=== PATIENT | male | born 1940 | race Caucasian/White ===

== ENCOUNTER 2019-01-15 21:55 | Observation (INO) | payer OTHER, MEDICARE ==
[2019-01-15 22:06] VITALS: BMI 20.9
--- NOTE | 2019-01-15 22:45 | PDOC ---
History of Present Illness - General Chief Complaint: Chest Pain Stated Complaint: CHEST PAIN Time Seen by Provider: 01/15/19 22:44 History Source: Patient Exam Limitations: No Limitations - History of Present Illness Initial Comments: 01/15/19 22:44 Source: Patient and HPI: 78yo M with PMH DM, HTN, HLD, thyroid problem, presenting with 2 hours of chest pain. Pain is constant, non-radiating, worse with breathing, sharp in nature. Patient has no cardiac history, no cardiology, has never had a pain like this before, takes the occasional 81mg ASA, none today. Very active vitaliy, walks and exercises daily, never smoker. Denies fevers / chills / cough / n / v / c / d / CANTOR / diaphoresis / recent travel / immobilization / leg pains or swelling. All: NKDA Meds: per chart PMH: as above PSH: denies Past History - Travel Traveled outside of the country in the last 30 days: No Close contact w/someone who was outside of country & ill: No - Past Medical History Allergies/Adverse Reactions: Allergies Allergy/AdvReac Type Severity Reaction Status Date / Time No Known Allergies Allergy Verified 01/15/19 22:04 Home Medications: Ambulatory Orders Aspirin [ASA -] 81 mg PO DAILY 01/15/19 Atorvastatin Ca [Lipitor] 10 mg PO HS 01/15/19 Glipizide Xl [Glucotrol Xl -] 10 mg PO DAILY 01/15/19 Levothyroxine [Synthroid -] 75 mcg PO DAILY 01/15/19 Losartan Potassium 100 mg PO DAILY 01/15/19 Metformin HCl [Glucophage] 500 mg PO DAILY 01/15/19 Metoprolol Tartrate 25 mg PO DAILY 01/15/19 Sitagliptin Phosphate [Januvia] 50 mg PO DAILY 01/15/19 COPD: No Diabetes: Yes HTN: Yes Hypercholesterolemia: Yes - Psycho Social/Smoking Cessation Hx Smoking History: Never smoked Review of Systems - Review of Systems Able to Perform ROS?: Yes Is the patient limited Malay proficient: Yes Constitutional: No: Chills, Diaphoresis, Fever, Weakness HEENTM: No: Recent change in vision, Nose Congestion, Throat Pain Respiratory: No: Cough, Orthopnea, Shortness of Breath, Wheezing Cardiac (ROS): Yes: Symptoms Reported, See HPI, Chest Pain. No: Edema, Irregular Heart Rate, Lightheadedness, Palpitations, Syncope, Chest Tightness ABD/GI: No: Constipated, Diarrhea, Nausea, Poor Appetite, Poor Fluid Intake, Vomiting : No: Burning, Dysuria, Pain Musculoskeletal: No: Muscle Pain, Muscle Weakness Integumentary: No: Bruising, Change in Color, Pruritus, Rash Neurological: No: Headache, Numbness, Tingling, Weakness Psychiatric: No: Stressors, Change in Appetite Endocrine: No: Excessive Sweating, Flushing, Change in Weight Hematologic/Lymphatic: No: Anemia, Blood Clots, Easy Bleeding All Other Systems: Reviewed and Negative *Physical Exam - Vital Signs Last Vital Signs Temp Pulse Resp BP Pulse Ox 98 F 72 18 140/72 100 01/15/19 22:04 01/15/19 22:04 01/15/19 22:04 01/15/19 22:04 01/15/19 22:04 - Physical Exam Comments: 01/15/19 23:27 Vitals reviewed, hypertensive, otherwise AFVSS WDWN man, appears stated age, no acute distress, resting in hospital bed MMM, EOMI, NCAT, PERLL, trachea midline RRR, nl s1s2, no murmurs appreciated Clear to auscultation bilaterally with some reduction in breath sounds in left lung, no wheezes / rales / rhonchi, normal WOB, 100% on RA, chest wall mildly tender on palpation without crepitus Soft, nontender, nondistended WWP, 2+ radial and PT pulses, no clubbing / cyanosis / edema Alert and oriented, CN 2-12 grossly intact, MAEE Heart Score/ECG Review - History History: Slightly suspicious - Electrocardiogram EKG: Normal - Age Age: >/= 65 - Risk Factors Risk Factors Heart Score: Yes Hx Hypercholesterolemia, Yes Hx Hypertension, Yes Hx Diabetes Based on the list above the patient has:: >/=3 risk factors or Hx atherosclerotic disease - Troponin Troponin: </= normal limit - Score Heart Score - Total: 4 ED Treatment Course - LABORATORY CBC & Chemistry Diagram: 01/15/19 23:55 01/15/19 23:55 Medical Decision Making - Medical Decision Making 01/15/19 23:25 78yo M with PMH DM, HTN, HLD, thyroid problem, presenting with acute pleuritic chest pain. PE notable for reduced BS on left thorax. DDX: Pneumothorax, r/o ACS , PE, MSK pain. HEART Score at least 4. -CBC, CMP, CP, PT/INR -EKG, CXR, Acquisition Specialist -Chewable ASA 324 EKG: Sinus with 1st degree AV block (PA 364 ms), normal axis, no abnormal morphologies No recent comparison in chart - prior 2010 without AV block 01/16/19 00:27 -No leukocytosis -RBCs 3.55, Hgb 11.5, Hct 34.4 01/16/19 00:50 -Indeterminate troponin (0.04) -Mildly Hyper K 5.2 -MOHSEN with Cr 1.5 - ordered for 500cc NS -Normal coags Dispo: Tele Obs for r/o ACS 01/16/19 00:53 -CXR with normal silhouette, no consolidations or effusions, no pneumothorax, no acute fractures noted on my read 01/16/19 01:10 -Patient admitted to Tel/Obs under Dr. Love, sign out given Discharge - Discharge Information Problems reviewed: Yes Clinical Impression/Diagnosis: MOHSEN (acute kidney injury) Chest pain Qualifiers: Chest pain type: chest pain on breathing Qualified Code(s): R07.1 - Chest pain on breathing Condition: Improved - Admission Yes - Follow up/Referral Referrals: Ayad Love MD [Primary Care Provider] - - Patient Discharge Instructions - Post Discharge Activity
[2019-01-15] MEDS ORDERED: ASPIRIN 81 MG CHEWABLE TABLETS PO ONE (23:11)
[2019-01-15] MEDS ORDERED: ASPIRIN 81 MG CHEWABLE TABLETS ONE (23:35)
[2019-01-16 00:03] LABS: BASO % 0.7 % (0-2.0); EOS % 2.6 % (0-4.5); HEMATOCRIT 34.4 % (35.4-49); HEMOGLOBIN 11.2 GM/dL (11.7-16.9); LYMPH % 27.9 % (8-40); MCH 31.5 pg (25.7-33.7); MCHC 32.6 g/dl (32.0-35.9); MEAN CELL VOLUME 96.7 fl (80-96); MEAN PLT VOLUME 11.6 fl (7.5-11.1); MONO % 9.2 % (3.8-10.2); NEUT % 59.6 % (42.8-82.8); PLATELET COUNT 148 K/MM3 (134-434); RBC 3.55 M/mm3 (4.00-5.60); RDW 13.8 % (11.9-15.9); WHITE BLOOD COUNT 8.2 K/mm3 (4.0-10.0)
[2019-01-16 00:32] LABS: ALBUMIN 3.9 g/dl (3.4-5.0); BILIRUBIN,TOTAL 0.5 mg/dL (0.2-1); BLOOD UREA NITROGEN 35.1 mg/dL (7-18); CALCIUM 9.4 mg/dL (8.5-10.1); CREATININE 1.5 mg/dL (0.55-1.3); INR 0.93 (0.83-1.09); POTASSIUM 5.2 mmol/L (3.5-5.1); TOT PROT 6.6 g/dl (6.4-8.2)
[2019-01-16] MEDS ORDERED: SODIUM CHLORIDE 0.9% 500 ML INFUS.BAG IV ONE (00:52)
--- NOTE | 2019-01-16 01:10 | PDOC ---
Documentation entered by Beryl Borges SCRIBE, acting as scribe for Adalgisa Fleming MD. Adalgisa Fleming MD: This documentation has been prepared by the Jony ellis Brenda, SCRIBE, under my direction and personally reviewed by me in its entirety. I confirm that the documentation accurately reflects all work, treatment, procedures, and medical decision making performed by me. Attending Attestation - Resident Resident Name: Esdras Kaur - ED Attending Attestation I have performed the following: I have examined & evaluated the patient, The case was reviewed & discussed with the resident, I agree w/resident's findings & plan, Exceptions are as noted - HPI HPI: 01/16/19 00:22 78-year-old male presents because of left-sided pleuritic chest pain that started this evening at 8 PM. Was nonradiating and worsened with deep breaths. He did not have diaphoresis he was not hypoxic or tachypneic. - Physicial Exam PE: 01/16/19 00:[address] Esdras Kaur's physical exam. - Medical Decision Making 01/16/19 01:05 78 yo male with chest pain that started tonight, no prior episodes PMH NIDDM ,HTN, ekg NSR @ 80 bpm, QTc 403 ms,first degree AV block first troponin is 0.[address] Ayad Ricardo pt needs to have 3 troponins done and be admitted to OBS telemetry and Dr Ricardo agreed to this plan
[2019-01-16] MEDS ORDERED: ASPIRIN COATED 81 MG TABLET.EC ONE (08:59)
[2019-01-16] MEDS ORDERED: METOPROLOL TARTRATE 25 MG TABLET (FP) ONE (08:59)
[2019-01-16] MEDS: ASPIRIN COATED 81 MG TABLET.EC PO SCH (09:13)
[2019-01-16] MEDS: metoPROLOL SUCCINATE 25 MG TAB.SR.24H (FP) PO SCH (09:13)
--- NOTE | 2019-01-16 10:28 | CON.CARD ---
Consult Consult Specialty:: cardiology Reason for Consultation:: chest pain; CAD risks - History of Present Illness Chief Complaint: Pt A&Ox3; the central chest discomfort ("heavy"), partially reproduced by palpation of the left parasternal chest wall, was moderately intense yesterday; it is mild today. History of Present Illness: 78-year-old male (scott Freire), with hx CVA, HTN, hyperlioidemia, DM, who presents because of left-sided pleuritic chest pain that started this evening at 8 PM. Was nonradiating and worsened with deep breaths. He did not have diaphoresis he was not hypoxic or tachypneic. - History Source History Provided By: Patient, Medical Record (and discussed with Dr. Ayad Love) Limitations to Obtaining History: No Limitations - Smoking History Smoking history: Never smoked Home Medications - Allergies Allergies/Adverse Reactions: Allergies Allergy/AdvReac Type Severity Reaction Status Date / Time No Known Allergies Allergy Verified 01/15/19 22:04 - Home Medications Home Medications: Ambulatory Orders Aspirin [ASA -] 81 mg PO DAILY 01/15/19 Atorvastatin Ca [Lipitor] 10 mg PO HS 01/15/19 Glipizide Xl [Glucotrol Xl -] 10 mg PO DAILY 01/15/19 Levothyroxine [Synthroid -] 75 mcg PO DAILY 01/15/19 Losartan Potassium 100 mg PO DAILY 01/15/19 Metformin HCl [Glucophage] 500 mg PO DAILY 01/15/19 Metoprolol Tartrate 25 mg PO DAILY 01/15/19 Sitagliptin Phosphate [Januvia] 50 mg PO DAILY 01/15/19 Vital Signs: Vital Signs Temperature 97.7 F 01/16/19 07:20 Pulse Rate 54 L 01/16/19 07:20 Respiratory Rate 20 01/16/19 07:20 Blood Pressure 122/66 01/16/19 07:20 O2 Sat by Pulse Oximetry (%) 99 01/16/19 07:20 - Other Data Labs, Other Data: CBC, BMP 01/15/19 23:55 01/15/19 23:55 INR, PTT INR 0.93 (0.83-1.09) 01/15/19 23:55 Troponin, BNP 01/15/19 01/16/19 23:55 08:40 Troponin I 0.04 0.05 Troponin, BNP 01/15/19 01/16/19 23:55 08:40 Troponin I 0.04 0.05 Problem List - Problems (1) Diabetes Code(s): E11.9 - TYPE 2 DIABETES MELLITUS WITHOUT COMPLICATIONS Qualifiers: Diabetes mellitus type: type 2 (2) CVA (cerebral vascular accident) Code(s): I63.9 - CEREBRAL INFARCTION, UNSPECIFIED (3) HTN (hypertension) Code(s): I10 - ESSENTIAL (PRIMARY) HYPERTENSION Qualifiers: Hypertension type: unspecified Qualified Code(s): I10 - Essential (primary ) hypertension (4) Hyperlipidemia Code(s): E78.5 - HYPERLIPIDEMIA, UNSPECIFIED Qualifiers: Hyperlipidemia type: unspecified Qualified Code(s): E78.5 - Hyperlipidemia , unspecified (5) Chest pain Assessment/Plan: EKG: NSR; f/u serially. TNI 0.04-->0.05. Plan: ASA 325 mg x 1, then 81 mg daily. Statin; f/u lipid profile. Serial TNI; if no significant further rise, will plan for stress MIBI in am. Code(s): R07.9 - CHEST PAIN, UNSPECIFIED Qualifiers: Chest pain type: chest pain on breathing Qualified Code(s): R07.1 - Chest pain on breathing; R07.81 - Pleurodynia
[2019-01-16] MEDS ORDERED: ACETAMINOPHEN 325 MG TABLET (FP) PO ONE (11:00)
[2019-01-16] MEDS ORDERED: ACETAMINOPHEN 325 MG TABLET (FP) ONE (11:02)
--- NOTE | 2019-01-16 12:09 | EKG ---
Test Reason : Blood Pressure : / mmHG Vent. Rate : 080 BPM Atrial Rate : 080 BPM P-R Int : 364 ms QRS Dur : 098 ms QT Int : 350 ms P-R-T Axes : 018 -27 052 degrees QTc Int : 403 ms SINUS RHYTHM WITH 1ST DEGREE A-V BLOCK SEPTAL INFARCT , AGE UNDETERMINED ABNORMAL ECG WHEN COMPARED WITH ECG OF 23-MAR-2002 10:12, SEPTAL INFARCT IS NOW PRESENT T WAVE INVERSION NO LONGER EVIDENT IN INFERIOR LEADS Confirmed by Lake Mishra MD ([id number]) on 01/16/2019 12:08:52 PM Referred By: Confirmed By:Lake Mishra MD
--- NOTE | 2019-01-16 14:22 | ECHO ---
Name: SHALINI ISRRAEL Exam:Adult Echocardiogram Study Date: 01/16/2019 01:31 PM Age: 78 yrs Reason For Study: Chest pain Height: 67 in Weight: 134 lb BSA: 1.7 m2 MMode/2D Measurements & Calculations IVSd: 1.1 cm LA dimension: 4.1 cm LVIDd: 4.0 cm ACS: 2.0 cm LVIDs: 2.9 cm LVPWd: 1.4 cm EDV(Teich): 68.6 ml LVOT diam: 1.9 cm ESV(Teich): 33.2 ml RV S Layton: 13.0 cm/sec Doppler Measurements & Calculations MV E max layton: 103.3 cm/sec MR max layton: 539.4 cm/sec MV A max layton: 90.2 cm/sec MR max P.4 mmHg MV E/A: 1.1 MV dec time: 0.10 sec TR max layton: 265.6 cm/sec PI end-d layton: 183.2 cm/sec TR max P.5 mmHg RVSP(TR): 38.5 mmHg Med Peak E' Layton: 7.0 cm/sec RAP systole: 10.0 mmHg Med E/e': 14.7 Lat Peak E' Layton: 9.1 cm/sec Lat E/e': 11.4 Procedure A two-dimensional transthoracic echocardiogram with color flow and Doppler was performed. Left Ventricle The left ventricle is normal in size. There is mild concentric left ventricular hypertrophy. Left elvis tricular systolic function is normal. Ejection Fraction = 55%. Right Ventricle The right ventricle is normal in size and function. Atria The left atrium is mildly dilated. The right atrium is mildly dilated. Mitral Valve The mitral valve is grossly normal. There is moderate mitral regurgitation. Tricuspid Valve The tricuspid valve is not well visualized, but is grossly normal. There is mild tricuspid regurgitat ion. Right ventricular systolic pressure is elevated at 44 mmhg. Assuming the RA pressure is 10 mmHg. Aortic Valve The aortic valve is trileaflet. There is mild aortic sclerosis.;. No hemodynamically significant valv ular aortic stenosis. Mild aortic regurgitation. Pulmonic Valve The pulmonic valve is not well visualized. Great Vessels The aortic root is normal size. Interpretation Summary A two-dimensional transthoracic echocardiogram with color flow and Doppler was performed. The left ventricle is normal in size. There is mild concentric left ventricular hypertrophy. Left ventricular systolic function is normal. The left atrium is mildly dilated. There is moderate mitral regurgitation. There is mild tricuspid regurgitation. No hemodynamically significant valvular aortic stenosis. Mild aortic regurgitation. Right ventricular systolic pressure is elevated at 44 mmhg. Assuming the RA pressure is 10 mmHg MD Giovani Mora 01/16/2019 02:21 PM
--- NOTE | 2019-01-16 18:20 | HP ---
Admitting History and Physical - Primary Care Physician PCP: Ayad Love - Admission Chief Complaint: left sided chest pain History of Present Illness: 78-year-old male w/ Hx of Htn; DM presents because of abrupt onset of resting left-sided pleuritic chest pain. He states that it began suddenly last PM when he was sitting watching TV. he noted a fixed pain (which he still has), non radiating, w/o dizziness, sweats, n-v, palpitations. He had not had this before. He denies any cough; SOB, PND. He does do light exercises which he has always done. He does not report any exertional chest pains. He does not feel ill in any other way. History Source: Patient Limitations to Obtaining History: No Limitations - Past Medical History Cardiovascular: Yes: HTN, Hyperlipdemia Endocrine: Yes: Diabetes Mellitus, Hypothyroidism - Past Surgical History Additional Past Surgical History: Gastric surgery as youth for ulcer dz Orthopedic surgery for FX - Smoking History Smoking history: Never smoked - Alcohol/Substance Use Hx Alcohol Use: No History of Substance Use: reports: None - Social History Usual Living Arrangement: Yes: With Spouse Do you think of yourself as: Straight/Heterosexual ADL: Independent Occupation: retired from construction History of Recent Travel: No Home Medications - Allergies Allergies/Adverse Reactions: Allergies Allergy/AdvReac Type Severity Reaction Status Date / Time No Known Allergies Allergy Verified 01/15/19 22:04 - Home Medications Home Medications: Ambulatory Orders Aspirin [ASA -] 81 mg PO DAILY 01/15/19 Atorvastatin Ca [Lipitor] 10 mg PO HS 01/15/19 Glipizide Xl [Glucotrol Xl -] 10 mg PO DAILY 01/15/19 Levothyroxine [Synthroid -] 75 mcg PO DAILY 01/15/19 Losartan Potassium 100 mg PO DAILY 01/15/19 Metformin HCl [Glucophage] 500 mg PO DAILY 01/15/19 Metoprolol Tartrate 25 mg PO DAILY 01/15/19 Sitagliptin Phosphate [Januvia] 50 mg PO DAILY 01/15/19 Family Medical History Family History: Unremarkable Review of Systems - Review of Systems Constitutional: reports: No Symptoms Eyes: reports: No Symptoms HENT: reports: No Symptoms Neck: reports: No Symptoms Cardiovascular: reports: Chest Pain Respiratory: reports: No Symptoms Gastrointestinal: reports: No Symptoms Genitourinary: reports: Frequency (HS) Breasts: reports: No Symptoms Reported Musculoskeletal: reports: No Symptoms Integumentary: reports: No Symptoms Neurological: reports: No Symptoms Endocrine: reports: No Symptoms Hematology/Lymphatic: reports: No Symptoms Psychiatric: reports: No Symptoms Physical Examination Vital Signs: Vital Signs Temperature 98.6 F 01/16/19 11:37 Pulse Rate 62 01/16/19 11:37 Respiratory Rate 12 01/16/19 11:37 Blood Pressure 120/65 01/16/19 11:37 O2 Sat by Pulse Oximetry (%) 97 01/16/19 11:37 Constitutional: Yes: Well Nourished, No Distress, Calm Eyes: Yes: Conjunctiva Clear, EOM Intact HENT: Yes: WNL Neck: Yes: WNL Cardiovascular: Yes: Regular Rate and Rhythm Respiratory: Yes: Regular Gastrointestinal: Yes: Normal Bowel Sounds, Soft, Other (old surg incision) ...Rectal Exam: Yes: Deferred Renal/: Yes: WNL Musculoskeletal: Yes: WNL Extremities: Yes: WNL Edema: No Peripheral Pulses: Left Doralis Pedis: 2+, Right Dorsalis Pedis: 2+ Integumentary: Yes: WNL Neurological: Yes: WNL ...Motor Strength: WNL Psychiatric: Yes: WNL Labs: CBC, BMP 01/15/19 23:55 01/15/19 23:55 Laboratory Tests 01/15/19 01/15/19 01/15/19 23:55 23:55 23:55 WBC 8.2 RBC 3.55 L Hgb 11.2 L Hct 34.4 L MCV 96.7 H MCH 31.5 MCHC 32.6 RDW 13.8 Plt Count 148 D MPV 11.6 H D Absolute Neuts (auto) 4.9 Neutrophils % 59.6 Lymphocytes % 27.9 Monocytes % 9.2 Eosinophils % 2.6 Basophils % 0.7 Nucleated RBC % 0 PT with INR INR Sodium 139 Potassium 5.2 H Chloride 111 H Carbon Dioxide 22 Anion Gap 6 L BUN 35.1 H Creatinine 1.5 H Est GFR (CKD-EPI)AfAm 50.59 Est GFR (CKD-EPI)NonAf 43.65 POC Glucometer Random Glucose 222 H Calcium 9.4 Total Bilirubin 0.5 AST 14 L ALT 20 Alkaline Phosphatase 64 Creatine Kinase 109 Troponin I 0.04 Total Protein 6.6 Albumin 3.9 Triglycerides Cholesterol Total LDL Cholesterol HDL Cholesterol Vitamin B12 TSH 01/15/19 01/16/19 01/16/19 23:55 08:40 09:31 WBC RBC Hgb Hct MCV MCH MCHC RDW Plt Count MPV Absolute Neuts (auto) Neutrophils % Lymphocytes % Monocytes % Eosinophils % Basophils % Nucleated RBC % PT with INR 11.00 INR 0.93 Sodium Potassium Chloride Carbon Dioxide Anion Gap BUN Creatinine Est GFR (CKD-EPI)AfAm Est GFR (CKD-EPI)NonAf POC Glucometer 150 Random Glucose Calcium Total Bilirubin AST ALT Alkaline Phosphatase Creatine Kinase 80 Troponin I 0.05 Total Protein Albumin Triglycerides 56 Cholesterol 124 Total LDL Cholesterol 57 HDL Cholesterol 57 Vitamin B12 515 TSH 0.42 Imaging - Results Chest X-ray: Report Reviewed EKG: Report Reviewed Other: Report Reviewed (echo--> NL Ej Fx; but multiple valvular dz) Problem List - Problems (1) Chest pain Assessment/Plan: Left sided fixed; with only slight change in intensity. Non radiating, but does augment with deep breathing. Likely causes may be due to a pleuritis; doubt pericarditis; angina a possibility. Doubt PE in setting of NL oxygenation. PLAn : as per cardio; check Cardiac enz x 3 Code(s): R07.9 - CHEST PAIN, UNSPECIFIED Qualifiers: Chest pain type: chest pain on breathing Qualified Code(s): R07.1 - Chest pain on breathing; R07.81 - Pleurodynia (2) Diabetes Assessment/Plan: Non insulin dep; will check A1c; do BGMs Code(s): E11.9 - TYPE 2 DIABETES MELLITUS WITHOUT COMPLICATIONS Qualifiers: Diabetes mellitus type: type 2 (3) Hyperlipidemia Assessment/Plan: on statin, levels in range Code(s): E78.5 - HYPERLIPIDEMIA, UNSPECIFIED Qualifiers: Hyperlipidemia type: unspecified Qualified Code(s): E78.5 - Hyperlipidemia , unspecified (4) History of CVA (cerebrovascular accident) Assessment/Plan: many yrs ago; no residual deficits Code(s): Z86.73 - PRSNL HX OF TIA (TIA), AND CEREB INFRC W/O RESID DEFICITS (5) Anemia Assessment/Plan: unknown cause; mild. NC-NC; onset unknown by bid writer Code(s): D64.9 - ANEMIA, UNSPECIFIED Qualifiers: Anemia type: unspecified type Qualified Code(s): D64.9 - Anemia, unspecified (6) Hypertension with impaired renal function Assessment/Plan: BP in range at this time Code(s): I12.9 - HYPERTENSIVE CHRONIC KIDNEY DISEASE W STG 1-4/UNSP CHR KDNY (7) Abnormal EKG Assessment/Plan: as per reader; to suggest septal infarct; not described by echo report. Code(s): R94.31 - ABNORMAL ELECTROCARDIOGRAM [ECG] [EKG] Assessment/Plan 78 YO Diabetic with new onset of Lt sided CP. Mgmt as above. ~~~~~~~~~~~~~~~~~~~~~~~~ Dr Mistry
[2019-01-17 06:57] LABS: BLOOD UREA NITROGEN 21.7 mg/dL (7-18); CALCIUM 9.2 mg/dL (8.5-10.1); CREATININE 1.2 mg/dL (0.55-1.3); HEMATOCRIT 32.6 % (35.4-49); HEMOGLOBIN 10.9 GM/dL (11.7-16.9); MCH 31.8 pg (25.7-33.7); MCHC 33.3 g/dl (32.0-35.9); MEAN CELL VOLUME 95.5 fl (80-96); PLATELET COUNT 146 K/MM3 (134-434); POTASSIUM 4.5 mmol/L (3.5-5.1); RBC 3.41 M/mm3 (4.00-5.60); RDW 13.2 % (11.9-15.9); WHITE BLOOD COUNT 5.8 K/mm3 (4.0-10.0)
[2019-01-17] MEDS: ASPIRIN COATED 81 MG TABLET.EC PO SCH (09:41)
--- NOTE | 2019-01-17 09:49 | PN ---
Progress Note, Physician History of Present Illness: 78-year-old male (scott Freire), with hx CVA, HTN, hyperlioidemia, DM, who presents because of left-sided pleuritic chest pain that started this evening at 8 PM. Was nonradiating and worsened with deep breaths. He did not have diaphoresis he was not hypoxic or tachypneic. - Current Medication List Current Medications: Active Medications Aspirin (Ecotrin -) 81 mg PO DAILY [facility] Last Admin: 01/17/19 09:41 Dose: 81 mg Metformin HCl (Glucophage Xr -) 750 mg PO BIDAC [facility] Last Admin: 01/16/19 18:30 Dose: 750 mg Metoprolol Succinate (Toprol Xl -) 25 mg PO DAILY [facility] Last Admin: 01/16/19 09:13 Dose: 25 mg - Objective Vital Signs: Vital Signs Temperature 98.0 F 01/17/19 07:43 Pulse Rate 52 L 01/17/19 07:43 Respiratory Rate 18 01/17/19 07:43 Blood Pressure 139/59 L 01/17/19 07:43 O2 Sat by Pulse Oximetry (%) 99 01/16/19 23:20 Eyes: Yes: WNL, Conjunctiva Clear, EOM Intact HENT: Yes: WNL, Atraumatic, Normocephalic Neck: Yes: WNL, Supple, Trachea Midline Cardiovascular: Yes: WNL, Regular Rate and Rhythm Respiratory: Yes: WNL, Regular, CTA Bilaterally Gastrointestinal: Yes: WNL, Normal Bowel Sounds Genitourinary: Yes: WNL Musculoskeletal: Yes: WNL Extremities: Yes: WNL Edema: No Integumentary: Yes: WNL Neurological: Yes: WNL, Alert, Oriented ...Motor Strength: WNL Psychiatric: Yes: WNL Labs: CBC, BMP 01/17/19 05:35 01/17/19 05:35 INR, PTT INR 0.93 (0.83-1.09) 01/15/19 23:55 Assessment/Plan Problem List - Problems (1) Diabetes Code(s): E11.9 - TYPE 2 DIABETES MELLITUS WITHOUT COMPLICATIONS Qualifiers: Diabetes mellitus type: type 2 (2) CVA (cerebral vascular accident) Code(s): I63.9 - CEREBRAL INFARCTION, UNSPECIFIED (3) HTN (hypertension) Code(s): I10 - ESSENTIAL (PRIMARY) HYPERTENSION Qualifiers: Hypertension type: unspecified Qualified Code(s): I10 - Essential (primary ) hypertension (4) Hyperlipidemia Code(s): E78.5 - HYPERLIPIDEMIA, UNSPECIFIED Qualifiers: Hyperlipidemia type: unspecified Qualified Code(s): E78.5 - Hyperlipidemia , unspecified (5) Chest pain Assessment/Plan: EKG: NSR; f/u serially. TNI 0.04-->0.05. Plan: ASA 325 mg x 1, then 81 mg daily. Statin; f/u lipid profile. stress MIBI neg for ischemia will d/c telemetry Code(s): R07.9 - CHEST PAIN, UNSPECIFIED Qualifiers: Chest pain type: chest pain on breathing Qualified Code(s): R07.1 - Chest pain on breathing; R07.81 - Pleurodynia
--- NOTE | 2019-01-17 09:55 | EKG ---
Test Reason : Blood Pressure : / mmHG Vent. Rate : 052 BPM Atrial Rate : 052 BPM P-R Int : 364 ms QRS Dur : 096 ms QT Int : 440 ms P-R-T Axes : 046 -35 007 degrees QTc Int : 409 ms SINUS BRADYCARDIA WITH 1ST DEGREE A-V BLOCK LEFT AXIS DEVIATION INCOMPLETE RIGHT BUNDLE BRANCH BLOCK ABNORMAL ECG WHEN COMPARED WITH ECG OF 15-JAN-2019 21:49, VENT. RATE HAS DECREASED BY 28 BPM CRITERIA FOR SEPTAL INFARCT ARE NO LONGER PRESENT Confirmed by CJ LOTT, ELISABETH ([id number]) on 01/17/2019 9:55:14 AM Referred By: Confirmed By:ELISABETH CORONA MD
[2019-01-17] MEDS: metoPROLOL SUCCINATE 25 MG TAB.SR.24H (FP) PO SCH (12:43)
[2019-01-17 16:53] VITALS: BP 133/74; PULSE 64; TEMP 98.8
--- NOTE | 2019-01-17 17:18 | DS ---
Physical Examination Vital Signs: Vital Signs Temperature 98.8 F 01/17/19 16:52 Pulse Rate 64 01/17/19 16:52 Respiratory Rate 16 01/17/19 16:52 Blood Pressure 133/74 01/17/19 16:52 O2 Sat by Pulse Oximetry (%) 99 01/17/19 09:00 Constitutional: Yes: Well Nourished, No Distress, Calm Eyes: Yes: Conjunctiva Clear, EOM Intact HENT: Yes: Normocephalic Neck: Yes: Supple Cardiovascular: Yes: Regular Rate and Rhythm Respiratory: Yes: CTA Bilaterally, Other (Lt pect tenderness to touch) Gastrointestinal: Yes: Normal Bowel Sounds Neurological: Yes: WNL ...Motor Strength: WNL Psychiatric: Yes: WNL Labs: CBC, BMP 01/17/19 05:35 01/17/19 05:35 Laboratory Tests 01/15/19 01/15/19 01/15/19 23:55 23:55 23:55 WBC 8.2 RBC 3.55 L Hgb 11.2 L Hct 34.4 L MCV 96.7 H MCH 31.5 MCHC 32.6 RDW 13.8 Plt Count 148 D MPV 11.6 H D Absolute Neuts (auto) 4.9 Neutrophils % 59.6 Lymphocytes % 27.9 Monocytes % 9.2 Eosinophils % 2.6 Basophils % 0.7 Nucleated RBC % 0 PT with INR INR Sodium 139 Potassium 5.2 H Chloride 111 H Carbon Dioxide 22 Anion Gap 6 L BUN 35.1 H Creatinine 1.5 H Est GFR (CKD-EPI)AfAm 50.59 Est GFR (CKD-EPI)NonAf 43.65 POC Glucometer Random Glucose 222 H Hemoglobin A1c % Calcium 9.4 Total Bilirubin 0.5 AST 14 L ALT 20 Alkaline Phosphatase 64 Creatine Kinase 109 Troponin I 0.04 Total Protein 6.6 Albumin 3.9 Triglycerides Cholesterol Total LDL Cholesterol HDL Cholesterol Vitamin B12 TSH 01/15/19 01/16/19 01/16/19 23:55 08:40 09:31 WBC RBC Hgb Hct MCV MCH MCHC RDW Plt Count MPV Absolute Neuts (auto) Neutrophils % Lymphocytes % Monocytes % Eosinophils % Basophils % Nucleated RBC % PT with INR 11.00 INR 0.93 Sodium Potassium Chloride Carbon Dioxide Anion Gap BUN Creatinine Est GFR (CKD-EPI)AfAm Est GFR (CKD-EPI)NonAf POC Glucometer 150 Random Glucose Hemoglobin A1c % Calcium Total Bilirubin AST ALT Alkaline Phosphatase Creatine Kinase 80 Troponin I 0.05 Total Protein Albumin Triglycerides 56 Cholesterol 124 Total LDL Cholesterol 57 HDL Cholesterol 57 Vitamin B12 515 TSH 0.42 01/16/19 01/17/19 01/17/19 21:45 05:26 05:35 WBC RBC Hgb Hct MCV MCH MCHC RDW Plt Count MPV Absolute Neuts (auto) Neutrophils % Lymphocytes % Monocytes % Eosinophils % Basophils % Nucleated RBC % PT with INR INR Sodium Potassium Chloride Carbon Dioxide Anion Gap BUN Creatinine Est GFR (CKD-EPI)AfAm Est GFR (CKD-EPI)NonAf POC Glucometer 205 Random Glucose Hemoglobin A1c % < 3.5 L Calcium Total Bilirubin AST ALT Alkaline Phosphatase Creatine Kinase Troponin I 0.05 Total Protein Albumin Triglycerides Cholesterol Total LDL Cholesterol HDL Cholesterol Vitamin B12 TSH 01/17/19 01/17/19 05:35 05:35 WBC 5.8 RBC 3.41 L Hgb 10.9 L Hct 32.6 L MCV 95.5 MCH 31.8 MCHC 33.3 RDW 13.2 Plt Count 146 MPV 11.0 Absolute Neuts (auto) Neutrophils % Lymphocytes % Monocytes % Eosinophils % Basophils % Nucleated RBC % PT with INR INR Sodium 143 Potassium 4.5 Chloride 111 H Carbon Dioxide 25 Anion Gap 6 L BUN 21.7 H Creatinine 1.2 Est GFR (CKD-EPI)AfAm 66.26 Est GFR (CKD-EPI)NonAf 57.17 POC Glucometer Random Glucose 217 H Hemoglobin A1c % Calcium 9.2 Total Bilirubin AST ALT Alkaline Phosphatase Creatine Kinase 70 Troponin I 0.05 Total Protein Albumin Triglycerides Cholesterol Total LDL Cholesterol HDL Cholesterol Vitamin B12 TSH Discharge Summary Problems reviewed: Yes Reason For Visit: Chest pain Current Active Problems Abnormal EKG Anemia (Acute) Diabetes (Acute) History of CVA (cerebrovascular accident) (Acute) Hyperlipidemia (Acute) Hypertension with impaired renal function (Acute) 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 His vitals were stable but his CP was persisten no worse either sitting or on exertion. He did admit to doing light weight lifting [employer] (which he always does). The CP was steady and non radiating. All his Troponins were negative. His EKG did show the presence of a "septal infarct". The echo showed NL ej FX and some valvular abnormalities. he under went stress test which did not evoke any acute ischemic findings. It did reveal a possible old IA. Today he still c/o Lt sided CP but exacerbated by touch to suggest a myofascial source. Health Concerns: BP & BS control Plan of Treatment: resume all meds Goals: avoid over exertion Condition: Improved - Instructions Diet, Activity, Other Instructions: Low starch; low salt Check BP and blood sugars Referrals: Ayad Love MD [Primary Care Provider] - Disposition: HOME - Home Medications Comprehensive Discharge Medication List: Ambulatory Orders Aspirin [ASA -] 81 mg PO DAILY 01/15/19 Atorvastatin Ca [Lipitor] 10 mg PO HS 01/15/19 Glipizide Xl [Glucotrol Xl -] 10 mg PO DAILY 01/15/19 Levothyroxine [Synthroid -] 75 mcg PO DAILY 01/15/19 Losartan Potassium 100 mg PO DAILY 01/15/19 Metformin HCl [Glucophage] 500 mg PO DAILY 01/15/19 Metoprolol Tartrate 25 mg PO DAILY 01/15/19 Sitagliptin Phosphate [Januvia] 50 mg PO DAILY 01/15/19
== END 2019-01-17 18:11 | disposition home or self-care (01) ==
LOC: JER 21:55 → JERBED 01-16 00:54 → J4S 01-16 20:53
PROVIDERS: ADMIT Internal Medicine Hematology & Oncology; ATTEND Internal Medicine Hematology & Oncology
PROC: 3E0337Z Introduction of Electrolytic and Water Balance Substance into Peripheral Vein, Percutaneous Approach (ICD-10-PCS; principal; 2019-01-16)
DX: R07.1 Chest pain on breathing (principal); I10 Essential (primary) hypertension; E78.5 Hyperlipidemia, unspecified; E11.9 Type 2 diabetes mellitus without complications; I44.0 Atrioventricular block, first degree; D64.9 Anemia, unspecified; I12.9 Hypertensive chronic kidney disease with stage 1 through stage 4 chronic kidney disease, or unspecified chronic kidney disease; R94.31 Abnormal electrocardiogram [ECG] [EKG]; I25.2 Old myocardial infarction; N17.9 Acute kidney failure, unspecified; Z79.82 Long term (current) use of aspirin; Z79.84 Long term (current) use of oral hypoglycemic drugs; Z86.73 Personal history of transient ischemic attack (TIA), and cerebral infarction without residual deficits
CPT/HCPCS: 36415; 71045-TC-FY; 78452-TC; 80048; 80053; 80061; 82550; 82607; 82962; 83036; 83721; 84443; 84484; 85025; 85027; 85610; 93005; 93010; 93017; 93306-TC; 99285-25; A9502; G0378

== ENCOUNTER 2019-11-23 08:23 | Inpatient (IN) | payer OTHER, MEDICARE ==
--- NOTE | 2019-11-23 08:49 | PDOC ---
History of Present Illness - General Chief Complaint: Pain Stated Complaint: ABDOMINAL PAIN Time Seen by Provider: 11/23/19 08:45 History Source: Patient Exam Limitations: No Limitations - History of Present Illness Initial Comments: 11/23/19 08:49 79yM w PMHx IDDM, HTN, HLD, hypothyroidism, GI ulcer s/p resection 60 years ago, R inguinal hernia repair presenting w sudden onset intermittent moderate RLQ pain and nausea which woke him up from sleep at 2am this morning. Didn't take any meds for pain. Daily BM. Denies fever, vomiting, chest pain, SOB, dysuria. Dr Ricardo PCP called, added that pt has strong fam hx of colon cancer, had large polyp removed 10yrs ago and several smaller polyps removed recently. Admit to him if being admitted Past History - Medical History Allergies/Adverse Reactions: Allergies Allergy/AdvReac Type Severity Reaction Status Date / Time No Known Allergies Allergy Verified 11/23/19 08:30 Home Medications: Ambulatory Orders Aspirin [ASA -] 81 mg PO DAILY 01/15/19 Atorvastatin Ca [Lipitor] 10 mg PO HS 01/15/19 Glipizide Xl [Glucotrol Xl -] 5 mg PO DAILY 01/15/19 Levothyroxine [Synthroid -] 75 mcg PO DAILY 01/15/19 Metformin HCl [Glucophage] 500 mg PO DAILY 01/15/19 Metoprolol Tartrate 25 mg PO DAILY 01/15/19 Sitagliptin Phosphate [Januvia] 50 mg PO DAILY 01/15/19 Insulin Lispro [Humalog] unit SQ AC 11/23/19 Irbesartan [Avapro] 150 mg PO DAILY 11/23/19 COPD: No Diabetes: Yes HTN: Yes Hypercholesterolemia: Yes Thyroid Disease: Yes (hypothyroid) - Surgical History Abdominal Surgery: Yes Orthopedic Surgery: Yes - Psycho-Social/Smoking History Smoking History: Never smoked Have you smoked in the past 12 months: No If you are a former smoker, when did you quit?: 55 years ago Information on smoking cessation initiated: No - Substance Abuse Hx (Audit-C & DAST Scrn) How often the patient has a drink containing alcohol: Never Score: In Men: 4 or > Positive; In Women: 3 or > Positive: 0 Screen Result (Pos requires Nsg. Audit-10AR): Negative Review of Systems - Review of Systems Constitutional: No: Chills, Fever HEENTM: No: Eye Pain, Ear Discharge Respiratory: No: Cough, Shortness of Breath Cardiac (ROS): No: Chest Pain, Lightheadedness ABD/GI: Yes: Nausea. No: Abdominal Distended, Constipated, Diarrhea, Vomiting : No: Burning, Dysuria Musculoskeletal: No: Back Pain, Joint Pain Integumentary: No: Bruising, Dryness Neurological: No: Headache, Seizure Psychiatric: No: Anxiety, Depression Endocrine: No: Intolerance to Cold, Intolerance to Heat Hematologic/Lymphatic: No: Anemia, Blood Clots *Physical Exam - Vital Signs Last Vital Signs Temp Pulse Resp BP Pulse Ox 98.3 F 55 L 17 158/71 100 11/23/19 08:30 11/23/19 08:30 11/23/19 08:30 11/23/19 08:30 11/23/19 08:30 - Physical Exam General Appearance: Yes: Nourished, Appropriately Dressed, Mild Distress HEENT: positive: EOMI, SOFYA, Normal Voice, Hearing Grossly Normal. negative: Scleral Icterus (R), Scleral Icterus (L) Respiratory/Chest: positive: Lungs Clear, Normal Breath Sounds. negative: Chest Tender, Respiratory Distress Cardiovascular: positive: Regular Rhythm, S1, S2, Bradycardia. negative: Murmur Gastrointestinal/Abdominal: positive: Normal Bowel Sounds, Tender (mild RLQ), Fl at, Soft, Other (midline epigastric surgical scar, R inguinal region no tenderness/hernia palpable). negative: Organomegaly Male Genitalia: positive: normal genitalia Musculoskeletal: positive: CVA Tenderness (R). negative: CVA Tenderness (L) Extremity: negative: Pedal Edema Integumentary: positive: Normal Color, Warm Neurologic: positive: Fully Oriented, Alert, Normal Mood/Affect, Normal Response, Responsive ED Treatment Course - LABORATORY CBC & Chemistry Diagram: 11/23/19 09:15 11/23/19 09:15 Medical Decision Making - Medical Decision Making 11/23/19 09:06 CT A/P Cr 1.4, tbili 1.1 --- 79yM w PMHx IDDM, HTN, HLD, hypothyroidism, GI ulcer s/p resection 60 years ago, R inguinal hernia repair presenting w sudden onset intermittent moderate RLQ pain and nausea which woke him up from sleep at 2am this morning. MSK vs diverticulitis. Low concern for appendicitis vs SBO (not distended) vs incarcerated hernia (pain above hernia) vs UTI (clean) vs kidney stone (no RBC) Cr 1.[address] showed overdistended gallbladder w hyperdense material consistent w small stones, milk of ca, sludge, significant stranding along inferior posterior margin where it meets appendiceal tip, normal size appendix, significant surrounding edema, free fluid in RLQ/pelvis - unclear Given tylenol, 1L NS, zofran, morphine, zosyn, NPO Consulted Dr Reagan surg - advised likely cholecystitis, get RUQ US, admit, NPO, antibiotics, will evaluate Admit m/s for suspected cholecystitis Discharge - Discharge Information Problems reviewed: Yes Clinical Impression/Diagnosis: Abdominal pain Qualifiers: Abdominal location: right lower quadrant Qualified Code(s): R10.31 - Right lower quadrant pain Condition: Improved - Follow up/Referral Referrals: Ayad Love MD [Primary Care Provider] - - Patient Discharge Instructions - Post Discharge Activity
[2019-11-23] MEDS ORDERED: ACETAMINOPHEN 500 MG TABLET (FP) PO ONE (08:57)
[2019-11-23] MEDS ORDERED: SODIUM CHLORIDE 0.9% 500 ML INFUS.BAG IV ONE (09:05)
[2019-11-23] MEDS ORDERED: ONDANSETRON 4 MG/2 ML VIAL IVPUSH ONE (09:05)
[2019-11-23 09:25] LABS: EPI CELLS 5 /uL (0-25.1); HYALINE CASTS 1 /uL (0-3.1); URINE APPEARANCE CLEAR; URINE BACTERIA 7 /uL (0-1359); URINE BILIRUBIN NEGATIVE (NEGATIVE); URINE COLOR YELLOW; URINE GLUCOSE (UA) NEGATIVE (NEGATIVE); URINE KETONE TRACE (NEGATIVE); URINE LEUK ESTERASE TRACE (NEGATIVE); URINE NITRITE NEGATIVE (NEGATIVE); URINE PROTEIN NEGATIVE (NEGATIVE); URINE RBC 2 /uL (0-23.9); URINE UROBILINOGEN 0.2 mg/dL (0.2-1.0); URINE WBC 11 /uL (0-25.8)
[2019-11-23 09:34] LABS: BASO % 0.4 % (0-2.0); EOS % 0.5 % (0-4.5); HEMATOCRIT 35.3 % (35.4-49); HEMOGLOBIN 11.6 GM/dL (11.7-16.9); LYMPH % 13.6 % (8-40); MCH 32.6 pg (25.7-33.7); MCHC 32.9 g/dl (32.0-35.9); MEAN CELL VOLUME 98.8 fl (80-96); MEAN PLT VOLUME 11.2 fl (7.5-11.1); MONO % 3.6 % (3.8-10.2); NEUT % 81.9 % (42.8-82.8); PLATELET COUNT 145 K/MM3 (134-434); RBC 3.57 M/mm3 (4.00-5.60); RDW 14.2 % (11.9-15.9); WHITE BLOOD COUNT 9.5 K/mm3 (4.0-10.0)
[2019-11-23] MEDS ORDERED: morphine CARPU-JECT 4 MG/1 ML DISP.SYRIN IVPUSH ONE ×3 (09:46→17:22)
[2019-11-23] MEDS ORDERED: ACETAMINOPHEN 1000 MG/100 ML VIAL (NON FORMULARY) IVPB ONE (09:48)
[2019-11-23] MEDS ORDERED: ACETAMINOPHEN INJECTION 100 ML IVPB ONE (09:53)
[2019-11-23 10:04] LABS: ALBUMIN 4.4 g/dl (3.4-5.0); BILIRUBIN,TOTAL 1.1 mg/dL (0.2-1); BLOOD UREA NITROGEN 31.1 mg/dL (7-18); CALCIUM 9.2 mg/dL (8.5-10.1); CREATININE 1.4 mg/dL (0.55-1.3); POTASSIUM 4.9 mmol/L (3.5-5.1); TOT PROT 7.1 g/dl (6.4-8.2)
--- NOTE | 2019-11-23 10:59 | PDOC ---
Documentation entered by Kyle Ng SCRIBE, acting as scribe for Gosia Humphrey MD. Gosia Humphrey MD: This documentation has been prepared by the Hernandez ellis Xhesika, SCRIBE, under my direction and personally reviewed by me in its entirety. I confirm that the documentation accurately reflects all work, treatment, procedures, and medical decision making performed by me. Attending Attestation - Resident Resident Name: Sal Chavira - ED Attending Attestation I have performed the following: I have examined & evaluated the patient, The case was reviewed & discussed with the resident, I agree w/resident's findings & plan, Exceptions are as noted - HPI HPI: 11/23/19 09:39 The patient is a 79y/o M with a pmh of IDDM, HTN, HLD, hypothyroidism, GI ulcer s/p resection 60 years ago, R inguinal hernia repair who presents to the ED with sudden onset RLQ abdominal pain and nausea. Pt reports his pain woke him up from sleep at 2am this morning, prompting his arrival to the ED. Pt denies taki ng any pain medication. Pt denies any chest pain, shortness of breath, headache and dizziness. Denies fever, chills, cough, vomiting, diarrhea and constipation. Denies dysuria, frequency, urgency and hematuria. Allergies: NKDA PCP: Ayad oMrelos - Physicial Exam PE: GENERAL: Awake, alert, and fully oriented. Appears uncomfortable. HEAD: No signs of trauma EYES: PERRLA, EOMI, sclera anicteric, conjunctiva clear ENT: Auricles normal inspection, hearing grossly normal, nares patent, oropharynx clear without exudates. Moist mucosa NECK: Normal ROM, supple, no lymphadenopathy, JVD, or masses LUNGS: Breath sounds equal, clear to auscultation bilaterally. No wheezes, and no crackles HEART: Regular rate and rhythm, normal S1 and S2, no murmurs, rubs or gallops ABDOMEN: Soft, nontender, normoactive bowel sounds. No guarding, no rebound. No masses EXTREMITIES: Normal range of motion, no edema. No clubbing or cyanosis. No cords, erythema, or tenderness NEUROLOGICAL: Cranial nerves II through XII grossly intact. Normal speech, normal gait. Motor and sensation intact SKIN: Warm, dry, normal turgor, no rashes or lesions noted. - Medical Decision Making Pt with RLQ abdominal pain, history of prior abdominal surgery. Will check labs and plan for CT to further evaluate. Discharge - Discharge Information Problems reviewed: Yes Clinical Impression/Diagnosis: Abdominal pain Qualifiers: Abdominal location: right lower quadrant Qualified Code(s): R10.31 - Right lower quadrant pain Condition: Improved - Follow up/Referral - Patient Discharge Instructions - Post Discharge Activity
[2019-11-23] MEDS ORDERED: PIPERACILLIN/TAZOB 4.5 GM 4.5 GM in DEXTROSE 5%-WATER 100 ML IVPB ONE (13:03)
[2019-11-23] MEDS ORDERED: PIPERACILLIN/TAZOB 4.5 GM 4.5 GM/100 ML BAG IVPB ONE (13:27)
[2019-11-23] MEDS ORDERED: morphine SULFATE 4 MG/ML VIAL ONE ×2 (13:27→17:24)
[2019-11-23] MEDS: SODIUM CHLORIDE 1,000 ML IV SCH ×2 (13:46→21:58)
--- NOTE | 2019-11-23 16:57 | CONSULT ---
- Consultation REQUESTING PROVIDER: [facility] CONSULT REQUEST: We have been asked to surgically evaluate this patient for abd ominal pain. PCP:Ayad Love HISTORY OF PRESENT ILLNESS: REYNOLD who is an 79 y/o male who presented the [facility] ED w/ # hours of the sudden onset of abdominal pain. PMHx: HLD/HTN/hypothyroid/IDDM PSHx: RIH repair; partial gastrectomy > 50 years ago for a bleeding duodenal ulcer Home Medications Medication Instructions Recorded Aspirin [ASA -] 81 mg PO DAILY 01/15/19 Atorvastatin Ca [Lipitor] 10 mg PO HS 01/15/19 Glipizide Xl [Glucotrol Xl -] 5 mg PO DAILY 01/15/19 Levothyroxine [Synthroid -] 75 mcg PO DAILY 01/15/19 Metformin HCl [Glucophage] 500 mg PO DAILY 01/15/19 Metoprolol Tartrate 25 mg PO DAILY 01/15/19 Sitagliptin Phosphate [Januvia] 50 mg PO DAILY 01/15/19 Insulin Lispro [Humalog] unit SQ AC 11/23/19 Irbesartan [Avapro] 150 mg PO DAILY 11/23/19 Allergies Allergy/AdvReac Type Severity Reaction Status Date / Time No Known Allergies Allergy Verified 11/23/19 08:30 REVIEW OF SYSTEMS: CONSTITUTIONAL: Absent: fever, chills, diaphoresis, generalized weakness, malaise, loss of appetite, weight change CARDIOVASCULAR: Absent: chest pain, syncope, palpitations, irregular heart rate, lightheadedness, peripheral edema RESPIRATORY: Absent: cough, shortness of breath, dyspnea with exertion, wheezing, stridor, hemoptysis GASTROINTESTINAL: Present: abdominal pain, Absent: abdominal distension, nausea, vomiting, diarrhea, constipation, melena, hematochezia GENITOURINARY: Absent: dysuria, frequency, urgency, hesitancy, hematuria, flank pain, genital pain MUSCULOSKELETAL: Absent: myalgia, arthralgia, joint swelling, back pain, neck pain SKIN: Absent: rash, itching, pallor HEMATOLOGIC/IMMUNOLOGIC: Absent: easy bleeding, easy bruising, lymphadenopathy NEUROLOGIC: Absent: headache, focal weakness, paresthesias, dizziness, unsteady gait, seizure, mental status changes, bladder or bowel incontinence PSYCHIATRIC: Absent: anxiety, depression, suicidal or homicidal ideation, hallucinations. PHYSICAL EXAM: GENERAL: Awake, alert, and fully oriented, in no acute distress. HEAD: Normal with no signs of trauma. EYES: PERRL, sclera anicteric, conjunctiva clear. NECK: Normal ROM, supple without lymphadenopathy, JVD, or masses. ABDOMEN: Soft, nontender, not distended, normoactive bowel sounds, no guarding, no rebound, no masses. No organomegaly. Healed midline surgical scar and healed [facility] scar; no hernias. MUSCULOSKELETAL: Normal ROM at all joints. No bony deformities or tenderness. No CVA tenderness. UPPER EXTREMITIES: 2+ pulses, warm, well-perfused. No cyanosis. Cap refill <2 seconds. No peripheral edema. LOWER EXTREMITIES: 2+ pulses, warm, well-perfused. No calf tenderness. No peripheral edema. NEUROLOGICAL: Normal speech, gait not observed. PSYCH: Cooperative. Good eye contact. Appropriate mood and affect. SKIN: Warm, dry, normal turgor, no rashes or lesions noted. Vital Signs Temperature 97.2 F L 11/23/19 13:48 Pulse Rate 53 L 11/23/19 13:48 Respiratory Rate 16 11/23/19 13:48 Blood Pressure 124/59 L 11/23/19 13:48 O2 Sat by Pulse Oximetry (%) 99 11/23/19 13:48 Lab Results WBC 9.5 K/mm3 (4.0-10.0) 11/23/19 09:15 RBC 3.57 M/mm3 (4.00-5.60) L 11/23/19 09:15 Hgb 11.6 GM/dL (11.7-16.9) L 11/23/19 09:15 Hct 35.3 % (35.4-49) L 11/23/19 09:15 MCV 98.8 fl (80-96) H 11/23/19 09:15 MCHC 32.9 g/dl (32.0-35.9) 11/23/19 09:15 RDW 14.2 % (11.9-15.9) 11/23/19 09:15 Plt Count 145 K/MM3 (134-434) 11/23/19 09:15 Sodium 139 mmol/L (136-145) 11/23/19 09:15 Potassium 4.9 mmol/L (3.5-5.1) 11/23/19 09:15 Chloride 108 mmol/L (98-107) H 11/23/19 09:15 Carbon Dioxide 22 mmol/L (21-32) 11/23/19 09:15 Anion Gap 9 MMOL/L (8-16) 11/23/19 09:15 BUN 31.1 mg/dL (7-18) H 11/23/19 09:15 Creatinine 1.4 mg/dL (0.55-1.3) H 11/23/19 09:15 Random Glucose 175 mg/dL (74-106) H 11/23/19 09:15 Calcium 9.2 mg/dL (8.5-10.1) 11/23/19 09:15 CT a/p reviewed and US reviewed; images and films. IMP: abdomiinal pain PLAN: suggest NPO/IVF/I doubt the need for IVAB's; CT finding w/r/t his gallbladder appear similar to what was seen on previous imaging and supsect findings w/r/t his appendix are reactive and not indicative of acute appendicitis; will f/u. Jon Reagan MD FACS
--- NOTE | 2019-11-23 18:19 | HP ---
Admitting History and Physical - Primary Care Physician PCP: Ayad Love - Admission Chief Complaint: Rt sided abd pain History of Present Illness: 79yM w PMHx IDDM, HTN, HLD, hypothyroidism, GI ulcer s/p resection 60 years ago, old Rt inguinal hernia repair presenting w sudden onset intermittent moderate RLQ pain and nausea which woke him up from sleep at 2am this morning. Didn't take any meds for pain. Daily BM. Denies fever, vomiting, chest pain, SOB, diarrhea dysuria. He was feeling well in his usual state of health up until the episode began History Source: Patient, Medical Record Limitations to Obtaining History: No Limitations - Past Medical History Cardiovascular: Yes: HTN, Hyperlipdemia Gastrointestinal: Yes: Peptic Ulcer Disease (old) Endocrine: Yes: Diabetes Mellitus, Hypothyroidism - Past Surgical History Additional Past Surgical History: old laparotomy Rt ing hernia repair - Smoking History Smoking history: Never smoked Have you smoked in the past 12 months: No If you are a former smoker, when did you quit?: 55 years ago - Alcohol/Substance Use Hx Alcohol Use: No History of Substance Use: reports: None - Social History Usual Living Arrangement: Yes: With Spouse ADL: Independent Occupation: retired from construction History of Recent Travel: No Home Medications - Allergies Allergies/Adverse Reactions: Allergies Allergy/AdvReac Type Severity Reaction Status Date / Time No Known Allergies Allergy Verified 11/23/19 08:30 - Home Medications Home Medications: Ambulatory Orders Aspirin [ASA -] 81 mg PO DAILY 01/15/19 Atorvastatin Ca [Lipitor] 10 mg PO HS 01/15/19 Glipizide Xl [Glucotrol Xl -] 5 mg PO DAILY 01/15/19 Levothyroxine [Synthroid -] 75 mcg PO DAILY 01/15/19 Metformin HCl [Glucophage] 500 mg PO DAILY 01/15/19 Metoprolol Tartrate 25 mg PO DAILY 01/15/19 Sitagliptin Phosphate [Januvia] 50 mg PO DAILY 01/15/19 Insulin Lispro [Humalog] unit SQ AC 11/23/19 Irbesartan [Avapro] 150 mg PO DAILY 11/23/19 Family Medical History Family History: Unremarkable Review of Systems - Review of Systems Constitutional: reports: Lethargy, Loss of Appetite Eyes: reports: No Symptoms HENT: reports: No Symptoms Neck: reports: No Symptoms Cardiovascular: reports: No Symptoms Respiratory: reports: No Symptoms Gastrointestinal: reports: Abdominal Pain Genitourinary: reports: No Symptoms Musculoskeletal: reports: No Symptoms Integumentary: reports: No Symptoms Neurological: reports: No Symptoms Endocrine: reports: No Symptoms Hematology/Lymphatic: reports: No Symptoms Psychiatric: reports: No Symptoms Physical Examination Vital Signs: Vital Signs Temperature 97.2 F L 11/23/19 13:48 Pulse Rate 53 L 11/23/19 13:48 Respiratory Rate 16 11/23/19 13:48 Blood Pressure 124/59 L 11/23/19 13:48 O2 Sat by Pulse Oximetry (%) 99 11/23/19 13:48 Findings/Remarks: skin--NL color eyes--midline oral--no lasions appreciated neck--no masses felt lungs--clear heart--slow RR abd--old linear well healed lap scar; mild non darin RLQ: RUQ tenderness ext--no CCE; DPs fully palpated neuro--alert; lucid; coherent; no gross focal deficits Laboratory Results - last 24 hr 11/23/19 11/23/19 11/23/19 09:15 09:15 09:15 WBC 9.5 RBC 3.57 L Hgb 11.6 L Hct 35.3 L MCV 98.8 H MCH 32.6 MCHC 32.9 RDW 14.2 Plt Count 145 MPV 11.2 H Absolute Neuts (auto) 7.8 Neutrophils % 81.9 D Lymphocytes % 13.6 D Monocytes % 3.6 L Eosinophils % 0.5 D Basophils % 0.4 Nucleated RBC % 0 Sodium 139 Potassium 4.9 Chloride 108 H Carbon Dioxide 22 Anion Gap 9 BUN 31.1 H Creatinine 1.4 H Est GFR (CKD-EPI)AfAm 54.61 Est GFR (CKD-EPI)NonAf 47.12 Random Glucose 175 H Calcium 9.2 Total Bilirubin 1.1 H AST 19 ALT 23 Alkaline Phosphatase 68 Total Protein 7.1 Albumin 4.4 Urine Color Yellow Urine Appearance Clear Urine pH 5.0 Ur Specific [place] 1.018 Urine Protein Negative Urine Glucose (UA) Negative Urine Ketones Trace H Urine Blood Negative Urine Nitrite Negative Urine Bilirubin Negative Urine Urobilinogen 0.2 Ur Leukocyte Esterase Trace Urine WBC (Auto) 11 Urine RBC (Auto) 2 Urine Casts (Auto) 1 U Epithel Cells (Auto) 5 Urine Bacteria (Auto) 7 Labs: CBC, BMP 11/23/19 09:15 11/23/19 09:15 Imaging - Results Cat Scan: Report Reviewed EKG: Report Reviewed Problem List - Problems (1) Abdominal pain Assessment/Plan: as described; no assoc rebound appreciated at this moment. CT scan reveals enlarged GB (hydrops) and possible impingement on appendix? intraperitineal fluid seen. PLAN: seen by surgeon; NPO; check Am labs Code(s): R10.9 - UNSPECIFIED ABDOMINAL PAIN Qualifiers: Abdominal location: right lower quadrant Qualified Code(s): R10.31 - Right lower quadrant pain (2) Diabetes Assessment/Plan: hold PO meds as he is NPO Code(s): E11.9 - TYPE 2 DIABETES MELLITUS WITHOUT COMPLICATIONS Qualifiers: Diabetes mellitus type: type 2 (3) HTN (hypertension) Assessment/Plan: BP okay now; will need to hold meds for now Code(s): I10 - ESSENTIAL (PRIMARY) HYPERTENSION Qualifiers: Hypertension type: unspecified Qualified Code(s): I10 - Essential (primary) hypertension (4) Hyperlipidemia Assessment/Plan: hold statin Code(s): E78.5 - HYPERLIPIDEMIA, UNSPECIFIED Qualifiers: Hyperlipidemia type: unspecified Qualified Code(s): E78.5 - Hyperlipidemia, unspecified (5) Anemia Assessment/Plan: mild; unsure if new or old at this time. Will recheck Code(s): D64.9 - ANEMIA, UNSPECIFIED Qualifiers: Anemia type: unspecified type Qualified Code(s): D64.9 - Anemia, unspecified (6) Hypothyroid Assessment/Plan: euthryoid; check TFts Code(s): E03.9 - HYPOTHYROIDISM, UNSPECIFIED Qualifiers: Hypothyroidism type: unspecified Qualified Code(s): E03.9 - Hypothyroidism, unspecified (7) Bradycardia Assessment/Plan: could be due to effect of BB; will monitor into tomorrow Code(s): R00.1 - BRADYCARDIA, UNSPECIFIED (8) Renal insufficiency, mild Assessment/Plan: and/or mild dehydration; on IVF; will repeat in AM Code(s): N28.9 - DISORDER OF KIDNEY AND URETER, UNSPECIFIED Assessment/Plan 79 YO M with Htn & DM with acute abd pain as described; in whom GB dz or appendiceal dz is suspected; Mgmt as outlined above. ~~~~~~~~~~~~~~~~~~~~~` Commentucci
[2019-11-23 21:43] VITALS: BMI 19.3
[2019-11-24] MEDS: MORPHINE SULFATE 2 MG/ML VIAL IVPUSH PRN ×2 (00:37→11:29)
[2019-11-24] MEDS: SODIUM CHLORIDE 1,000 ML IV SCH ×2 (06:36→18:15)
[2019-11-24 09:10] LABS: HEMATOCRIT 32.6 % (35.4-49); HEMOGLOBIN 10.9 GM/dL (11.7-16.9); MCH 32.5 pg (25.7-33.7); MCHC 33.4 g/dl (32.0-35.9); MEAN CELL VOLUME 97.4 fl (80-96); MEAN PLT VOLUME 11.3 fl (7.5-11.1); PLATELET COUNT 134 K/MM3 (134-434); RBC 3.34 M/mm3 (4.00-5.60); WHITE BLOOD COUNT 7.2 K/mm3 (4.0-10.0)
[2019-11-24 09:18] LABS: INR 1.03 (0.83-1.09); PROTHROMBIN TIME (PATIENT) 12.1 SEC (9.7-13.0)
[2019-11-24 09:20] LABS: ACTIVATED PTT 28.5 SECONDS (25.2-36.5)
[2019-11-24 09:58] LABS: BLOOD UREA NITROGEN 18.1 mg/dL (7-18); CALCIUM 8.5 mg/dL (8.5-10.1); CREATININE 1.1 mg/dL (0.55-1.3); POTASSIUM 4.1 mmol/L (3.5-5.1)
--- NOTE | 2019-11-24 10:18 | EKG ---
Test Reason : Blood Pressure : / mmHG Vent. Rate : 050 BPM Atrial Rate : 050 BPM P-R Int : 282 ms QRS Dur : 098 ms QT Int : 490 ms P-R-T Axes : 066 -28 024 degrees QTc Int : 446 ms SINUS BRADYCARDIA WITH 1ST DEGREE A-V BLOCK PEAKED T WAVES, CLINICAL CORRELATION REQUIRED NONSPECIFIC INTRAVENTRICULAR CONDUCTION DEFECT LEFTWARD AXIS WHEN COMPARED WITH ECG OF 16-JAN-2019 10:32, NO SIGNIFICANT CHANGE WAS FOUND Confirmed by SASCHA VELA MD ([id number]) on 11/24/2019 10:18:50 AM Referred By: Confirmed By:SASCHA VELA MD
--- NOTE | 2019-11-24 10:42 | PN ---
Progress Note (short form) - Note Progress Note: Attending Surgeon Seen in f/u; ? no c/o; has not received any analgesics VSS AF abdo-soft; flat and non tender WBC-nl IMP: stable PLAN: Continue present tx.; would keep NPO and re-evaluate 11/25/2019 or prn sooner. D/w the patient and his son who is a PA. Jon Reagan MD FACS
--- NOTE | 2019-11-24 15:44 | PN ---
Progress Note (short form) - Note Progress Note: Active Medications Sodium Chloride (Normal Saline -) 1,000 mls @ 100 mls/hr IV ASDIR ONUR Last Admin: 11/24/19 06:36 Dose: 100 mls/hr Documented by: Morphine Sulfate (Morphine Sulfate) 2 mg IVPUSH Q6H PRN PRN Reason: PAIN LEVEL 7 - 10 Last Admin: 11/24/19 11:29 Dose: 2 mg Documented by: Laboratory Results - last 24 hr 11/23/19 11/24/19 11/24/19 14:25 00:34 05:44 WBC RBC Hgb Hct MCV MCH MCHC RDW Plt Count MPV PT with INR INR PTT (Actin FS) Sodium Potassium Chloride Carbon Dioxide Anion Gap BUN Creatinine Est GFR (CKD-EPI)AfAm Est GFR (CKD-EPI)NonAf POC Glucometer 179 162 Random Glucose Hemoglobin A1c % Calcium Lipase TSH COVID-19 (SHADE) Not detected 11/24/19 11/24/19 11/24/19 08:24 08:24 08:24 WBC 7.2 RBC 3.34 L Hgb 10.9 L Hct 32.6 L MCV 97.4 H MCH 32.5 MCHC 33.4 RDW 14.0 Plt Count 134 MPV 11.3 H PT with INR 12.10 INR 1.03 PTT (Actin FS) 28.5 Sodium 142 Potassium 4.1 Chloride 111 H Carbon Dioxide 25 Anion Gap 6 L BUN 18.1 H Creatinine 1.1 Est GFR (CKD-EPI)AfAm 73.09 Est GFR (CKD-EPI)NonAf 63.07 POC Glucometer Random Glucose 167 H Hemoglobin A1c % Calcium 8.5 Lipase TSH 4.72 H D COVID-19 (SHADE) 11/24/19 11/24/19 08:24 08:24 WBC RBC Hgb Hct MCV MCH MCHC RDW Plt Count MPV PT with INR INR PTT (Actin FS) Sodium Potassium Chloride Carbon Dioxide Anion Gap BUN Creatinine Est GFR (CKD-EPI)AfAm Est GFR (CKD-EPI)NonAf POC Glucometer Random Glucose Hemoglobin A1c % 8.4 H Calcium Lipase 60 L TSH COVID-19 (SHADE) Vital Signs Temperature 98.4 F 11/24/19 05:21 Pulse Rate 54 L 11/24/19 05:21 Respiratory Rate 18 11/24/19 05:21 Blood Pressure 107/55 L 11/24/19 05:21 O2 Sat by Pulse Oximetry (%) 98 11/24/19 05:21 CC: pain nearly subsided ```````````````````````` skin--NL color oral--no droop heart--RR abd--BS quiet, soft, NT, ND ext--no edema neuro--alert; coherent speech is clear `````````````````````````````````````` Summ > pain abd--as described; now much subsided but has not eaten anything yet; he was seen by surgeon who has elected to further monitor w/o intervention but will keep NPO > Htn--BP on low end; off all BP meds > DM--a1c very high; will need med adjustment as OP. > anemia--mild; not new, same as in 2019 level. ```````````````````````````````````````````````` dr Mistry Problem List - Problems (1) Abdominal pain Code(s): R10.9 - UNSPECIFIED ABDOMINAL PAIN Qualifiers: Abdominal location: right lower quadrant Qualified Code(s): R10.31 - Right lower quadrant pain (2) Diabetes Code(s): E11.9 - TYPE 2 DIABETES MELLITUS WITHOUT COMPLICATIONS Qualifiers: Diabetes mellitus type: type 2 (3) HTN (hypertension) Code(s): I10 - ESSENTIAL (PRIMARY) HYPERTENSION Qualifiers: Hypertension type: unspecified Qualified Code(s): I10 - Essential (primary) hypertension (4) Hyperlipidemia Code(s): E78.5 - HYPERLIPIDEMIA, UNSPECIFIED Qualifiers: Hyperlipidemia type: unspecified Qualified Code(s): E78.5 - Hyperlipidemia, unspecified (5) Anemia Code(s): D64.9 - ANEMIA, UNSPECIFIED Qualifiers: Anemia type: unspecified type Qualified Code(s): D64.9 - Anemia, unspecified (6) Hypothyroid Code(s): E03.9 - HYPOTHYROIDISM, UNSPECIFIED Qualifiers: Hypothyroidism type: unspecified Qualified Code(s): E03.9 - Hypothyroidism, unspecified (7) Bradycardia Code(s): R00.1 - BRADYCARDIA, UNSPECIFIED (8) Renal insufficiency, mild Code(s): N28.9 - DISORDER OF KIDNEY AND URETER, UNSPECIFIED
[2019-11-24] MEDS: AMINO ACIDS 4.25%/D5W 1,000 ML IV SCH (18:42)
[2019-11-25 08:44] LABS: HEMATOCRIT 34.5 % (35.4-49); HEMOGLOBIN 11.5 GM/dL (11.7-16.9); MCH 32.7 pg (25.7-33.7); MCHC 33.4 g/dl (32.0-35.9); MEAN CELL VOLUME 97.9 fl (80-96); MEAN PLT VOLUME 11.1 fl (7.5-11.1); PLATELET COUNT 136 K/MM3 (134-434); RBC 3.52 M/mm3 (4.00-5.60)
[2019-11-25 09:12] LABS: BLOOD UREA NITROGEN 15.7 mg/dL (7-18); CALCIUM 8.9 mg/dL (8.5-10.1); CREATININE 1.2 mg/dL (0.55-1.3); POTASSIUM 4.4 mmol/L (3.5-5.1)
--- NOTE | 2019-11-25 11:35 | PN ---
Progress Note (short form) - Note Progress Note: Attending Surgeon No c/o VSS AF abdo-soft and w/o tenderness WBC-nl IMP: abdominal pain resolved; ?? biliary colic ?? PLANTrial of clear liquid diet and continued observation. Jon Reagan MD FACS
--- NOTE | 2019-11-25 13:45 | PN ---
Progress Note (short form) - Note Progress Note: Active Medications Amino Acids (Clinimix -) 1,000 mls @ 42 mls/hr IV Q24H ONUR Last Admin: 11/24/19 18:42 Dose: 42 mls/hr Documented by: Morphine Sulfate (Morphine Sulfate) 2 mg IVPUSH Q6H PRN PRN Reason: PAIN LEVEL 7 - 10 Last Admin: 11/24/19 11:29 Dose: 2 mg Documented by: Laboratory Results - last 24 hr 11/24/19 11/25/19 11/25/19 19:05 01:27 01:39 WBC RBC Hgb Hct MCV MCH MCHC RDW Plt Count MPV Sodium Potassium Chloride Carbon Dioxide Anion Gap BUN Creatinine Est GFR (CKD-EPI)AfAm Est GFR (CKD-EPI)NonAf POC Glucometer 132 53 190 Random Glucose Calcium 11/25/19 11/25/19 11/25/19 06:58 08:07 08:07 WBC 7.0 RBC 3.52 L Hgb 11.5 L Hct 34.5 L MCV 97.9 H MCH 32.7 MCHC 33.4 RDW 14.0 Plt Count 136 MPV 11.1 Sodium 140 Potassium 4.4 Chloride 107 Carbon Dioxide 28 Anion Gap 6 L BUN 15.7 Creatinine 1.2 Est GFR (CKD-EPI)AfAm 65.79 Est GFR (CKD-EPI)NonAf 56.77 POC Glucometer 197 Random Glucose 207 H Calcium 8.9 11/25/19 13:16 WBC RBC Hgb Hct MCV MCH MCHC RDW Plt Count MPV Sodium Potassium Chloride Carbon Dioxide Anion Gap BUN Creatinine Est GFR (CKD-EPI)AfAm Est GFR (CKD-EPI)NonAf POC Glucometer 199 Random Glucose Calcium Vital Signs Temperature 98.6 F 11/25/19 01:35 Pulse Rate 53 L 11/25/19 01:35 Respiratory Rate 18 11/25/19 01:35 Blood Pressure 139/61 11/25/19 01:35 O2 Sat by Pulse Oximetry (%) 96 11/25/19 01:35 CC: no recurrence of pain ```````````````````````` skin--NL color oral--no droop heart--RR abd--BS quiet, soft, NT, ND ext--no edema neuro--alert; coherent speech is clear `````````````````````````````````````` Summ > pain abd--as described; abated; he was seen by surgeon who has advised clear liquids. > Htn--BP on low end; off all BP meds > DM--a1c very high; will need med adjustment as OP. BS high but on Clinimix; will order coverage scale > anemia--mild; not new, same as in 2019 level. ```````````````````````````````````````````````` dr Mistry Problem List - Problems (1) Abdominal pain Code(s): R10.9 - UNSPECIFIED ABDOMINAL PAIN Qualifiers: Abdominal location: right lower quadrant Qualified Code(s): R10.31 - Right lower quadrant pain (2) Diabetes Code(s): E11.9 - TYPE 2 DIABETES MELLITUS WITHOUT COMPLICATIONS Qualifiers: Diabetes mellitus type: type 2 (3) HTN (hypertension) Code(s): I10 - ESSENTIAL (PRIMARY) HYPERTENSION Qualifiers: Hypertension type: unspecified Qualified Code(s): I10 - Essential (primary) hypertension (4) Hyperlipidemia Code(s): E78.5 - HYPERLIPIDEMIA, UNSPECIFIED Qualifiers: Hyperlipidemia type: unspecified Qualified Code(s): E78.5 - Hyperlipidemia, unspecified (5) Anemia Code(s): D64.9 - ANEMIA, UNSPECIFIED Qualifiers: Anemia type: unspecified type Qualified Code(s): D64.9 - Anemia, unspecified (6) Hypothyroid Code(s): E03.9 - HYPOTHYROIDISM, UNSPECIFIED Qualifiers: Hypothyroidism type: unspecified Qualified Code(s): E03.9 - Hypothyroidism, unspecified (7) Bradycardia Code(s): R00.1 - BRADYCARDIA, UNSPECIFIED (8) Renal insufficiency, mild Code(s): N28.9 - DISORDER OF KIDNEY AND URETER, UNSPECIFIED
[2019-11-25] MEDS: INSULIN SLIDING SCALE (NOVOLOG) 1 VIAL SQ SCH (16:43)
[2019-11-25] MEDS: AMINO ACIDS 4.25%/D5W 1,000 ML IV SCH ×2 (16:46→17:04)
[2019-11-25] MEDS: MORPHINE SULFATE 2 MG/ML VIAL IVPUSH PRN (21:47)
[2019-11-26] MEDS: INSULIN SLIDING SCALE (NOVOLOG) 1 VIAL SQ SCH ×3 (06:23→17:00)
[2019-11-26] MEDS: LEVOTHYROXINE NA 75 MCG TABLET (FP) PO SCH (06:24)
[2019-11-26 09:04] LABS: HEMATOCRIT 33.6 % (35.4-49); HEMOGLOBIN 11.1 GM/dL (11.7-16.9); MCH 32.3 pg (25.7-33.7); MCHC 32.9 g/dl (32.0-35.9); MEAN CELL VOLUME 98.2 fl (80-96); MEAN PLT VOLUME 10.3 fl (7.5-11.1); PLATELET COUNT 125 K/MM3 (134-434); RBC 3.42 M/mm3 (4.00-5.60); RDW 13.9 % (11.9-15.9); WHITE BLOOD COUNT 6.6 K/mm3 (4.0-10.0)
[2019-11-26 09:23] LABS: BLOOD UREA NITROGEN 16.6 mg/dL (7-18); CREATININE 1.2 mg/dL (0.55-1.3); POTASSIUM 3.9 mmol/L (3.5-5.1)
[2019-11-26] MEDS ORDERED: INSULIN (NOVOLOG) ASPART 100 UNITS/ML 10ML VIAL ONE (10:43)
--- NOTE | 2019-11-26 11:18 | PN ---
Progress Note (short form) - Note Progress Note: Active Medications Amino Acids (Clinimix -) 1,000 mls @ 42 mls/hr IV Q24H [facility] Last Admin: 11/25/19 17:04 Dose: Not Given Documented by: Insulin Aspart (Novolog Vial Sliding Scale -) 1 vial SQ TIDAC [facility]; Protocol Last Admin: 11/26/19 06:23 Dose: Not Given Documented by: Levothyroxine Sodium (Synthroid -) 75 mcg PO DAILY@0700 [facility] Last Admin: 11/26/19 06:24 Dose: 75 mcg Documented by: Morphine Sulfate (Morphine Sulfate) 2 mg IVPUSH Q6H PRN PRN Reason: PAIN LEVEL 7 - 10 Last Admin: 11/25/19 21:47 Dose: 2 mg Documented by: Laboratory Results - last 24 hr 11/25/19 11/25/19 11/26/19 13:16 16:41 03:29 WBC RBC Hgb Hct MCV MCH MCHC RDW Plt Count MPV Sodium Potassium Chloride Carbon Dioxide Anion Gap BUN Creatinine Est GFR (CKD-EPI)AfAm Est GFR (CKD-EPI)NonAf POC Glucometer 199 305 211 Random Glucose Calcium 11/26/19 11/26/19 11/26/19 06:19 08:13 08:13 WBC 6.6 RBC 3.42 L Hgb 11.1 L Hct 33.6 L MCV 98.2 H MCH 32.3 MCHC 32.9 RDW 13.9 Plt Count 125 L MPV 10.3 Sodium 136 Potassium 3.9 Chloride 102 Carbon Dioxide 27 Anion Gap 7 L BUN 16.6 Creatinine 1.2 Est GFR (CKD-EPI)AfAm 65.79 Est GFR (CKD-EPI)NonAf 56.77 POC Glucometer 203 Random Glucose 220 H Calcium 9.0 Vital Signs Temperature 97.8 F 11/26/19 06:00 Pulse Rate 50 L 11/26/19 06:00 Respiratory Rate 18 11/26/19 06:00 Blood Pressure 130/64 11/26/19 06:00 O2 Sat by Pulse Oximetry (%) 98 11/26/19 06:00 CC: no recurrence of pain; ate Ok ```````````````````````` skin--NL color oral--no droop heart--RR abd--BS quiet, soft, NT, ND ext--no edema neuro--alert; coherent speech is clear `````````````````````````````````````` Summ > pain abd--abated, adv diet. > Htn--BP on low end; off all BP meds > DM--will need med adjustment as OP. > anemia--mild; not new, same as in 2019 level. ```````````````````````````````````````````````` dr Mistry Problem List - Problems (1) Abdominal pain Code(s): R10.9 - UNSPECIFIED ABDOMINAL PAIN Qualifiers: Abdominal location: right lower quadrant Qualified Code(s): R10.31 - Right lower quadrant pain (2) Diabetes Code(s): E11.9 - TYPE 2 DIABETES MELLITUS WITHOUT COMPLICATIONS Qualifiers: Diabetes mellitus type: type 2 (3) HTN (hypertension) Code(s): I10 - ESSENTIAL (PRIMARY) HYPERTENSION Qualifiers: Hypertension type: unspecified Qualified Code(s): I10 - Essential (primary) hypertension (4) Hyperlipidemia Code(s): E78.5 - HYPERLIPIDEMIA, UNSPECIFIED Qualifiers: Hyperlipidemia type: unspecified Qualified Code(s): E78.5 - Hyperlipidemia, unspecified (5) Anemia Code(s): D64.9 - ANEMIA, UNSPECIFIED Qualifiers: Anemia type: unspecified type Qualified Code(s): D64.9 - Anemia, unspecif ied (6) Hypothyroid Code(s): E03.9 - HYPOTHYROIDISM, UNSPECIFIED Qualifiers: Hypothyroidism type: unspecified Qualified Code(s): E03.9 - Hypothyroidism, unspecified (7) Bradycardia Code(s): R00.1 - BRADYCARDIA, UNSPECIFIED (8) Renal insufficiency, mild Code(s): N28.9 - DISORDER OF KIDNEY AND URETER, UNSPECIFIED
[2019-11-26] MEDS: POLYETHYLENE GLYCOL 3350 119 GM BTL PO SCH (12:55)
[2019-11-26] MEDS: DOCUSATE SODIUM 100 MG CAPSULE (FP) PO SCH (21:10)
[2019-11-27] MEDS: LEVOTHYROXINE NA 75 MCG TABLET (FP) PO SCH (06:13)
[2019-11-27] MEDS: INSULIN SLIDING SCALE (NOVOLOG) 1 VIAL SQ SCH ×3 (06:13→17:02)
[2019-11-27] MEDS: POLYETHYLENE GLYCOL 3350 119 GM BTL PO SCH (10:24)
[2019-11-27] MEDS: DOCUSATE SODIUM 100 MG CAPSULE (FP) PO SCH ×2 (10:24→21:17)
--- NOTE | 2019-11-27 11:04 | PN ---
Progress Note (short form) - Note Progress Note: Pt seen and examined. Reports he is feeling well. has not abdominal pain. Has been oob ambulating the halls multiple times per day. Tolerating clears. Voiding without issue. Denies cp/sob, n/v/d. Had a small bm yesterday which he reports was "hard" due to lack of eating over the past few days. Vital Signs Temp 98.4 F 11/27/19 05:23 Pulse 53 L 11/27/19 05:23 Resp 18 11/27/19 05:23 BP 131/63 11/27/19 05:23 Pulse Ox 97 11/27/19 05:23 Intake & Output 11/26/19 11/26/19 11/27/19 11:59 23:59 11:59 Intake Total 026 819 6486 Balance 401 304 1075 Weight 123 lb Intake: IV 294 200 Clinimix 294 200 Oral 560 4600 Other: Voiding Method Toilet Toilet Toilet # Unmeasured Voids Void 1 2 6 Bowel Movement No No No Height 5 ft 7 in Body Mass Index (BMI) 19.3 CBC, BMP 11/26/19 08:13 11/26/19 08:13 gen: awake, alert, nad Resp: unlabored on RA Abdo: soft, nt/nd + bowel sounds in all 4 quadrants A/P: 79 y/o M w/ PMHx IDDM, HTN, HLD, hypothyroidism, GI ulcer s/p resection 60 years ago, a/w RLQ pain. afebrile, vss no pain had a small bm yesterday tolerating clears -continue to advance diet, if pt is tolerating d/c with f/u in 1 week (Dr Reagan) d/w attending Dr Reagan <Maximilian Adkins - Last Filed: 11/27/19 11:07> - Note Progress Note: Attending Surgeon: I personally saw and examined the patient. My examination reveals a patient with abdominal pain. I discussed the case with the surgical PA and agree with their findings and plan of care with any exceptions as noted. HIDA results reviewed; I do not believe he has any acute surgical issue at this time h/e he may need to have an elective lap nanci; if he continues to do well he may f/u as an outpatient for consideration for elective outpatient lap nanci.~ Jon Reagan MD, FACS <Jon Reagan - Last Filed: 11/30/19 17:20>
[2019-11-27] MEDS ORDERED: INSULIN (NOVOLOG) ASPART 100 UNITS/ML 10ML VIAL ONE (11:17)
--- NOTE | 2019-11-27 17:11 | PN ---
Progress Note (short form) - Note Progress Note: Active Medications Docusate Sodium (Colace -) 100 mg PO BID [facility] Last Admin: 11/27/19 10:24 Dose: 100 mg Documented by: Insulin Aspart (Novolog Vial Sliding Scale -) 1 vial SQ TIDAC [facility]; Protocol Last Admin: 11/27/19 17:02 Dose: Not Given Documented by: Levothyroxine Sodium (Synthroid -) 75 mcg PO DAILY@0700 [facility] Last Admin: 11/27/19 06:13 Dose: 75 mcg Documented by: Polyethylene Glycol (Miralax (For Daily Use) -) 17 gm PO DAILY [facility] Last Admin: 11/27/19 10:24 Dose: 17 grams Documented by: Sitagliptin Phosphate (Januvia -) 100 mg PO DAILY@0700 [facility] Last Admin: 11/27/19 06:13 Dose: 100 mg Documented by: Laboratory Results - last 24 hr 11/26/19 11/27/19 11/27/19 16:58 06:12 11:13 POC Glucometer 132 182 268 11/27/19 16:59 POC Glucometer 199 Vital Signs Temperature 97.7 F 11/27/19 14:28 Pulse Rate 60 11/27/19 14:28 Respiratory Rate 18 11/27/19 14:28 Blood Pressure 119/54 L 11/27/19 14:28 O2 Sat by Pulse Oximetry (%) 97 11/27/19 10:00 CC: no recurrence of pain; ate Ok; had gas & BM ```````````````````````` skin--NL color heart--RR abd--BS quiet, soft, NT, ND ext--no edema neuro--alert; coherent speech is clear; ambulating well `````````````````````````````````````` Summ > pain abd--abated, tolerating adv diet. > Htn--BP on low end; off all BP meds > DM--will need med adjustment as OP. > anemia--mild; not new, same as in 2019 level. ```````````````````````````````````````````````` dr Mistry Problem List - Problems (1) Abdominal pain Code(s): R10.9 - UNSPECIFIED ABDOMINAL PAIN Qualifiers: Abdominal location: right lower quadrant Qualified Code(s): R10.31 - Right lower quadrant pain (2) Diabetes Code(s): E11.9 - TYPE 2 DIABETES MELLITUS WITHOUT COMPLICATIONS Qualifiers: Diabetes mellitus type: type 2 (3) HTN (hypertension) Code(s): I10 - ESSENTIAL (PRIMARY) HYPERTENSION Qualifiers: Hypertension type: unspecified Qualified Code(s): I10 - Essential (primary) hypertension (4) Hyperlipidemia Code(s): E78.5 - HYPERLIPIDEMIA, UNSPECIFIED Qualifiers: Hyperlipidemia type: unspecified Qualified Code(s): E78.5 - Hyperlipidemia, unspecified (5) Anemia Code(s): D64.9 - ANEMIA, UNSPECIFIED Qualifiers: Anemia type: unspecified type Qualified Code(s): D64.9 - Anemia, unspeci fied (6) Hypothyroid Code(s): E03.9 - HYPOTHYROIDISM, UNSPECIFIED Qualifiers: Hypothyroidism type: unspecified Qualified Code(s): E03.9 - Hypothyroidism, unspecified (7) Bradycardia Code(s): R00.1 - BRADYCARDIA, UNSPECIFIED (8) Renal insufficiency, mild Code(s): N28.9 - DISORDER OF KIDNEY AND URETER, UNSPECIFIED
[2019-11-28] MEDS: LEVOTHYROXINE NA 75 MCG TABLET (FP) PO SCH (06:05)
[2019-11-28] MEDS: INSULIN SLIDING SCALE (NOVOLOG) 1 VIAL SQ SCH ×3 (06:06→17:09)
[2019-11-28 08:30] LABS: HEMATOCRIT 34.4 % (35.4-49); HEMOGLOBIN 11.4 GM/dL (11.7-16.9); MCH 32.2 pg (25.7-33.7); MCHC 33.1 g/dl (32.0-35.9); MEAN PLT VOLUME 11.3 fl (7.5-11.1); PLATELET COUNT 148 K/MM3 (134-434); RBC 3.54 M/mm3 (4.00-5.60); RDW 13.8 % (11.9-15.9); WHITE BLOOD COUNT 5.9 K/mm3 (4.0-10.0)
[2019-11-28 08:56] LABS: CALCIUM 9.2 mg/dL (8.5-10.1); CREATININE 1.5 mg/dL (0.55-1.3); POTASSIUM 4.2 mmol/L (3.5-5.1)
[2019-11-28] MEDS: DOCUSATE SODIUM 100 MG CAPSULE (FP) PO SCH ×2 (09:53→22:34)
[2019-11-28] MEDS: POLYETHYLENE GLYCOL 3350 119 GM BTL PO SCH (09:53)
[2019-11-28] MEDS ORDERED: INSULIN (NOVOLOG) ASPART 100 UNITS/ML 10ML VIAL ONE (11:08)
[2019-11-28] MEDS: DEXTROSE 5%-0.45% SALINE 1,000 ML IV SCH (11:35)
--- NOTE | 2019-11-28 11:56 | PN ---
Progress Note (short form) - Note Progress Note: Active Medications Docusate Sodium (Colace -) 100 mg PO BID [facility] Last Admin: 11/28/19 09:53 Dose: 100 mg Documented by: Dextrose/Sodium Chloride (D5-1/2ns -) 1,000 mls @ 42 mls/hr IV ASDIR ONUR Insulin Aspart (Novolog Vial Sliding Scale -) 1 vial SQ TIDAC [facility]; Protocol Last Admin: 11/28/19 11:26 Dose: 5 units Documented by: Polyethylene Glycol (Miralax (For Daily Use) -) 17 gm PO DAILY [facility] Last Admin: 11/28/19 09:53 Dose: 17 grams Documented by: Laboratory Results - last 24 hr 11/27/19 11/28/19 11/28/19 16:59 05:50 07:44 WBC 5.9 RBC 3.54 L Hgb 11.4 L Hct 34.4 L MCV 97.0 H MCH 32.2 MCHC 33.1 RDW 13.8 Plt Count 148 MPV 11.3 H Sodium Potassium Chloride Carbon Dioxide Anion Gap BUN Creatinine Est GFR (CKD-EPI)AfAm Est GFR (CKD-EPI)NonAf POC Glucometer 199 241 Random Glucose Calcium 11/28/19 11/28/19 07:44 11:04 WBC RBC Hgb Hct MCV MCH MCHC RDW Plt Count MPV Sodium 137 Potassium 4.2 Chloride 101 Carbon Dioxide 28 Anion Gap 8 BUN 17.0 Creatinine 1.5 H Est GFR (CKD-EPI)AfAm 50.24 Est GFR (CKD-EPI)NonAf 43.35 POC Glucometer 365 Random Glucose 241 H Calcium 9.2 Vital Signs Temperature 98.4 F 11/28/19 05:30 Pulse Rate 99 H 11/28/19 09:00 Respiratory Rate 18 11/28/19 09:00 Blood Pressure 131/68 11/28/19 09:00 O2 Sat by Pulse Oximetry (%) 97 11/28/19 09:00 CC: sudden recurrent lower abd pains this Am after eating breakfast ```````````````````````` skin--NL color heart--RR abd--BS quiet, soft, some mild non darin tenderness in the lower abd. ext--no edema neuro--alert; coherent speech is clear, non focal `````````````````````````````````````` Summ > pain abd--has retrurned with near same character (waxing and waning) and intensity as upon admission. No n-v, loose stools, but had "gas". WBC okay; medical Vs surgical etiology? discussed w/ DR Reagan. > Htn--BP okay > DM--will to stop PO meds and switch to sliding scale. > anemia--mild; not new, same as in 2019 level. ```````````````````````````````````````````````` dr Mistry Problem List - Problems (1) Abdominal pain Code(s): R10.9 - UNSPECIFIED ABDOMINAL PAIN Qualifiers: Abdominal location: right lower quadrant Qualified Code(s): R10.31 - Right lower quadrant pain (2) Diabetes Code(s): E11.9 - TYPE 2 DIABETES MELLITUS WITHOUT COMPLICATIONS Qualifiers: Diabetes mellitus type: type 2 (3) HTN (hypertension) Code(s): I10 - ESSENTIAL (PRIMARY) HYPERTENSION Qualifiers: Hypertension type: unspecified Qualified Code(s): I10 - Essential (primary) hypertension (4) Hyperlipidemia Code(s): E78.5 - HYPERLIPIDEMIA, UNSPECIFIED Qualifiers: Hyperlipidemia type: unspecified Qualified Code(s): E78.5 - Hyperlipidemia, unspecified (5) Anemia Code(s): D64.9 - ANEMIA, UNSPECIFIED Qualifiers: Anemia type: unspecified type Qualified Code(s): D64.9 - Anemia, unspecified (6) Hypothyroid Code(s): E03.9 - HYPOTHYROIDISM, UNSPECIFIED Qualifiers: Hypothyroidism type: unspecified Qualified Code(s): E03.9 - Hypothyroidism, unspecified (7) Bradycardia Code(s): R00.1 - BRADYCARDIA, UNSPECIFIED (8) Renal insufficiency, mild Code(s): N28.9 - DISORDER OF KIDNEY AND URETER, UNSPECIFIED
[2019-11-28] MEDS: SIMETHICONE 80 MG TAB.CHEW (FP) PO SCH ×3 (14:28→22:34)
--- NOTE | 2019-11-28 15:52 | PN ---
Progress Note (short form) - Note Progress Note: Attending Surgeon Seen in f/u; case d/w Dr. Mistry; he had pain again today after diet was advanced. VSS AF abdo-soft and non tender; no ttp WBC-nl IMP; abdominal pain PLAN: Repeat CT a/p w/oral contrast. Jon Reagan MD FACS
[2019-11-29] MEDS: INSULIN SLIDING SCALE (NOVOLOG) 1 VIAL SQ SCH ×3 (06:38→16:45)
[2019-11-29] MEDS: SIMETHICONE 80 MG TAB.CHEW (FP) PO SCH ×5 (06:38→21:25)
--- NOTE | 2019-11-29 08:19 | PN ---
Progress Note (short form) - Note Progress Note: Surgery: Pt states that he feels better today. Had a BM, no nausea. Having slight umbilical tenderness. Vital Signs Period Temp Pulse Resp BP Sys/Marcano Pulse Ox Last 24 Hr 98.4 F-99.0 F 61-99 16-18 113-144/54-83 97-100 GEN: A&0x3, NAD ABD: sfot, flat, non-distended, non-tender CT scan: oral contrast visualized in the appendix which is 7mm. mild inflammation surrounding the tip of the appendix. A/p: 79 yo male with resolving abdominal pain, no leukocytosis or fevers advance to clears D/w Dr. Reagan <Ellen Smith - Last Filed: 11/29/19 17:16> - Note Progress Note: Attending Surgeon: I personally saw and examined the patient. My examination reveals a patient with abdominal pain. I discussed the case with the surgical PA and agree with their findings and plan of care with any exceptions as noted. ~ Jon Reagan MD, FACS <Jon Reagan - Last Filed: 11/30/19 10:23>
[2019-11-29] MEDS: DEXTROSE 5%-0.45% SALINE 1,000 ML IV SCH (09:06)
[2019-11-29] MEDS: DOCUSATE SODIUM 100 MG CAPSULE (FP) PO SCH ×2 (11:00→21:25)
[2019-11-29] MEDS: POLYETHYLENE GLYCOL 3350 119 GM BTL PO SCH (11:00)
[2019-11-29] MEDS ORDERED: INSULIN (NOVOLOG) ASPART 100 UNITS/ML 10ML VIAL ONE (11:43)
--- NOTE | 2019-11-29 13:48 | CON.GI ---
Consult Consult Specialty:: GI: For Dr. Gallegos Referred by:: Dr. Love Reason for Consultation:: Abdominal pain - History of Present Illness Chief Complaint: Abdominal pain History of Present Illness: 79M admitted last thirsday for evaluation of abdominal pain. Points towards his right groin / RLQ and umbilical region. States that pain woke him up 2am the morning of his admission and that he may have had smaller episodes of pain priot to this. CT scan on 11/22 revealed distended hydropic gallbladder with stones, with the tip of the gallbladder with stranding and noted at the level of the appendix. He has been treated for days now with bowel rest and was on antibiotics. Was advanced to clears but per nurse, he had pain again and was made NPO. He had a repeat CT scan A/P 11/27 that revealed simiar findings from initial CT scan, with overdistended GB with its tip extending the the level of the appendix with strading there as well. Denies food fear, fevers, chills, nausea, vomiting. He has been followed by surgery. GI called today to evaluate abdominal pain. Currently, he denies any pain. Brother had colon cancer. Mr. Tejeda states that his last colonoscopy was 2-3 years ago, performed by Dr. Gallegos, and that polyps were removed. Denies change in bowel habits. - History Source History Provided By: Patient, Medical Record - Past Medical History Cardio/Vascular: Yes: HTN, Hyperlipdemia Gastrointestinal: Yes: Peptic Ulcer Disease (old) Endocrine: Yes: Diabetes Mellitus, Hypothyroidism - Past Surgical History Past Surgical History: Yes: Hernia Repair (RIH ) Additional Surgical History: Partial gastrectomy secondary to PUD - Alcohol/Substance Use Hx Alcohol Use: Yes (Wine) History of Substance Use: reports: None - Smoking History Smoking history: Former smoker Have you smoked in the past 12 months: No If you are a former smoker, when did you quit?: 55 years ago - Social History Usual Living Arrangement: With Spouse ADL: Independent Occupation: retired from construction Place of : Other ([place]) History of Recent Travel: No Home Medications - Allergies Allergies/Adverse Reactions: Allergies Allergy/AdvReac Type Severity Reaction Status Date / Time No Known Allergies Allergy Verified 11/23/19 08:30 - Home Medications Home Medications: Ambulatory Orders Aspirin [ASA -] 81 mg PO DAILY 01/15/19 Atorvastatin Ca [Lipitor] 10 mg PO HS 01/15/19 Glipizide Xl [Glucotrol Xl -] 5 mg PO DAILY 01/15/19 Levothyroxine [Synthroid -] 75 mcg PO DAILY 01/15/19 Metformin HCl [Glucophage] 500 mg PO DAILY 01/15/19 Metoprolol Tartrate 25 mg PO DAILY 01/15/19 Sitagliptin Phosphate [Januvia] 50 mg PO DAILY 01/15/19 Insulin Lispro [Humalog] unit SQ AC 11/23/19 Irbesartan [Avapro] 150 mg PO DAILY 11/23/19 Family Medical History Family History: Unremarkable Family Hx Cancer: Brother (Colon cancer) Review of Systems - Review of Systems Constitutional: denies: Chills, Fever, Loss of Appetite Cardiovascular: denies: Chest Pain, Shortness of Breath Respiratory: denies: Cough, SOB Gastrointestinal: reports: Abdominal Pain. denies: Constipation, Diarrhea, Nausea, Rectal Bleeding, Vomiting, Vomiting Blood Physical Exam-GI Vital Signs: Vital Signs Temperature 98.6 F 11/29/19 13:00 Pulse Rate 65 11/29/19 13:00 Respiratory Rate 18 11/29/19 13:00 Blood Pressure 126/64 11/29/19 13:00 O2 Sat by Pulse Oximetry (%) 100 11/29/19 13:00 Constitutional: Yes: Calm Eyes: No: Sclera Icterus Cardiovascular: Yes: Regular Rate and Rhythm Respiratory: Yes: CTA Bilaterally Gastrointestinal Inspection: Yes: Scars (Mid vertical upper abdominal scar). No: Distention ...Auscultate: Yes: Normoactive Bowel Sounds ...Palpate: Yes: Soft. No: Hepatomegaly, Splenomegaly, Tenderness ...Percussion: No: Tympanitic Edema: No (No LE edema) Neurological: Yes: Alert Labs: CBC, BMP 11/28/19 07:44 11/28/19 07:44 INR, PTT INR 1.03 (0.83-1.09) 11/24/19 08:24 Hepatic Panel Total Bilirubin 1.1 mg/dL (0.2-1) H 11/23/19 09:15 AST 19 U/L (15-37) 11/23/19 09:15 ALT 23 U/L (13-61) 08/28/20 09:15 Alkaline Phosphatase 68 U/L (45-117) 11/23/19 09:15 Albumin 4.4 g/dl (3.4-5.0) 11/23/19 09:15 Imaging - Results Cat Scan: Report Reviewed, Image Reviewed Problem List - Problems (1) Abdominal pain Assessment/Plan: Right lower abdominal pain with a distended gallbladder reaching to the region of the appendix, with stranding at the meeting spot of bot the appendix and g allbladder. Suspect that the hydropic, inflamed gallbladder could cause pain symptoms in the RLQ given, however radiologist cannot exclude acute appendicitis. Surgery to come to decision re: surgical intervention Patient should follow-up with Dr. Gallegos as outpatient Recall GI as needed Code(s): R10.9 - UNSPECIFIED ABDOMINAL PAIN Qualifiers: Abdominal location: right lower quadrant Qualified Code(s): R10.31 - Right lower quadrant pain
--- NOTE | 2019-11-29 15:37 | PN ---
Progress Note (short form) - Note Progress Note: Active Medications Docusate Sodium (Colace -) 100 mg PO BID [facility] Last Admin: 11/29/19 11:00 Dose: 100 mg Documented by: Dextrose/Sodium Chloride (D5-1/2ns -) 1,000 mls @ 42 mls/hr IV ASDIR [facility] Last Admin: 11/29/19 09:06 Dose: 42 mls/hr Documented by: Insulin Aspart (Novolog Vial Sliding Scale -) 1 vial SQ TIDAC [facility]; Protocol Last Admin: 11/29/19 12:02 Dose: 3 units Documented by: Polyethylene Glycol (Miralax (For Daily Use) -) 17 gm PO DAILY [facility] Last Admin: 11/29/19 11:00 Dose: 17 grams Documented by: Simethicone (Mylicon -) 80 mg PO Q4HWA [facility] Last Admin: 11/29/19 12:06 Dose: 80 mg Documented by: Laboratory Results - last 24 hr 11/28/19 11/29/19 11/29/19 16:33 06:35 11:50 POC Glucometer 185 223 263 Vital Signs Temperature 97.8 F 11/29/19 14:00 Pulse Rate 68 11/29/19 14:00 Respiratory Rate 18 11/29/19 13:00 Blood Pressure 129/65 11/29/19 14:00 O2 Sat by Pulse Oximetry (%) 100 11/29/19 13:00 CC: less intense pains today but still getting colic-like episodes every 1/2 hr; relieved by expelling gas ```````````````````````` Gen'l: appears alert, coherent non toxic. skin--NL color heart--RR abd--BS quiet, soft, minimal non darin tenderness in the lower abd. ext--no edema neuro--alert; coherent speech is clear, non focal; fully ambulatory `````````````````````````````````````` Summ > pain abd--less intense today, nature is unclear; but could be due to GB disease; highly doubt AP, even though cannot be r/o radiologically. The enlarged GB may be in contact with the tip of the Appendix which can produce these findings. PLAN: for HIDA > Htn--BP okay > DM--on sliding scale. > anemia--mild; not new. ```````````````````````````````````````````````` dr Mistry Problem List - Problems (1) Abdominal pain Code(s): R10.9 - UNSPECIFIED ABDOMINAL PAIN Qualifiers: Abdominal location: right lower quadrant Qualified Code(s): R10.31 - Right lower quadrant pain (2) Diabetes Code(s): E11.9 - TYPE 2 DIABETES MELLITUS WITHOUT COMPLICATIONS Qualifiers: Diabetes mellitus type: type 2 (3) HTN (hypertension) Code(s): I10 - ESSENTIAL (PRIMARY) HYPERTENSION Qualifiers: Hypertension type: unspecified Qualified Code(s): I10 - Essential (primary) hypertension (4) Hyperlipidemia Code(s): E78.5 - HYPERLIPIDEMIA, UNSPECIFIED Qualifiers: Hyperlipidemia type: unspecified Qualified Code(s): E78.5 - Hyperlipidemia, unspecified (5) Anemia Code(s): D64.9 - ANEMIA, UNSPECIFIED Qualifiers: Anemia type: unspecified type Qualified Code(s): D64.9 - Anemia, unspecified (6) Hypothyroid Code(s): E03.9 - HYPOTHYROIDISM, UNSPECIFIED Qualifiers: Hypothyroidism type: unspecified Qualified Code(s): E03.9 - Hypothyroidism, unspecified (7) Bradycardia Code(s): R00.1 - BRADYCARDIA, UNSPECIFIED (8) Renal insufficiency, mild Code(s): N28.9 - DISORDER OF KIDNEY AND URETER, UNSPECIFIED
[2019-11-30] MEDS: INSULIN SLIDING SCALE (NOVOLOG) 1 VIAL SQ SCH ×3 (06:16→16:51)
[2019-11-30] MEDS: SIMETHICONE 80 MG TAB.CHEW (FP) PO SCH ×5 (06:16→21:41)
[2019-11-30] MEDS ORDERED: PT OWN MED DRAWER 7, Y5N ONE (06:32)
[2019-11-30 09:23] LABS: CALCIUM 9.5 mg/dL (8.5-10.1); CREATININE 1.3 mg/dL (0.55-1.3); POTASSIUM 4.2 mmol/L (3.5-5.1)
[2019-11-30 09:39] LABS: HEMATOCRIT 35.1 % (35.4-49); HEMOGLOBIN 11.6 GM/dL (11.7-16.9); MCH 31.9 pg (25.7-33.7); MCHC 33.1 g/dl (32.0-35.9); MEAN CELL VOLUME 96.3 fl (80-96); MEAN PLT VOLUME 11.1 fl (7.5-11.1); PLATELET COUNT 156 K/MM3 (134-434); RBC 3.65 M/mm3 (4.00-5.60); RDW 13.5 % (11.9-15.9); WHITE BLOOD COUNT 4.9 K/mm3 (4.0-10.0)
[2019-11-30] MEDS: DOCUSATE SODIUM 100 MG CAPSULE (FP) PO SCH ×2 (12:42→21:40)
[2019-11-30] MEDS: POLYETHYLENE GLYCOL 3350 119 GM BTL PO SCH (12:42)
--- NOTE | 2019-11-30 13:41 | PN ---
Progress Note (short form) - Note Progress Note: Pt seen and examined. Reports he is feeling well. Has not abdominal pain since yesterday morning. Reports he tolerated clears, Has been oob ambulating the halls multiple times per day. Voiding without issue. Denies cp/sob, n/v/d. Vital Signs Temp 98.7 F 11/30/19 05:13 Pulse 57 L 11/30/19 05:13 Resp 18 11/30/19 05:13 BP 129/55 L 11/30/19 05:13 Pulse Ox 100 11/30/19 05:13 Intake & Output 11/29/19 11/30/19 11/30/19 23:59 11:59 23:59 Intake Total 1390 Balance 1390 Intake: IV 650 D5-1/2Ns - 1,000 ml @ 42 650 mls/hr IV ASDIR ONUR Rx#: [id number] Oral 740 Other: Voiding Method Toilet Toilet # Unmeasured Voids Void 2 1 Bowel Movement Yes No # Bowel Movements 1 0 CBC, BMP 11/30/19 08:15 11/30/19 08:15 gen: awake, alert, nad Resp: unlabored on RA Abdo: soft, nt/nd + bowel sounds in all 4 quadrants A/P: 79 y/o M w/ PMHx IDDM, HTN, HLD, hypothyroidism, GI ulcer s/p resection 60 years ago, a/w RLQ pain. afebrile, vss no pain HIDA scan consistent with chronic cholecystitis reconsult prn d/w attending Dr Reagan <Maximilian Adkins - Last Filed: 12/04/19 12:28> - Note Progress Note: Attending Surgeon: I personally saw and examined the patient. My examination reveals a patient with abdominal pain. I discussed the case with the surgical PA and agree with their f indings and plan of care with any exceptions as noted. ~ Jon Reagan MD, FACS <Jon Reagan - Last Filed: 12/18/19 08:26>
--- NOTE | 2019-11-30 16:21 | PN ---
Progress Note (short form) - Note Progress Note: Active Medications Docusate Sodium (Colace -) 100 mg PO BID [facility] Last Admin: 11/30/19 12:42 Dose: 100 mg Documented by: Dextrose/Sodium Chloride (D5-1/2ns -) 1,000 mls @ 42 mls/hr IV ASDIR [facility] Last Admin: 11/29/19 09:06 Dose: 42 mls/hr Documented by: Insulin Aspart (Novolog Vial Sliding Scale -) 1 vial SQ TIDAC [facility]; Protocol Last Admin: 11/30/19 11:59 Dose: Not Given Documented by: Polyethylene Glycol (Miralax (For Daily Use) -) 17 gm PO DAILY [facility] Last Admin: 11/30/19 12:42 Dose: 17 grams Documented by: Simethicone (Mylicon -) 80 mg PO Q4HWA [facility] Last Admin: 11/30/19 12:43 Dose: 80 mg Documented by: Laboratory Results - last 24 hr 11/29/19 11/30/19 11/30/19 16:44 06:15 08:15 WBC 4.9 RBC 3.65 L Hgb 11.6 L Hct 35.1 L MCV 96.3 H MCH 31.9 MCHC 33.1 RDW 13.5 Plt Count 156 MPV 11.1 ESR Sodium Potassium Chloride Carbon Dioxide Anion Gap BUN Creatinine Est GFR (CKD-EPI)AfAm Est GFR (CKD-EPI)NonAf POC Glucometer 237 270 Random Glucose Calcium 11/30/19 11/30/19 11/30/19 08:15 08:15 11:59 WBC RBC Hgb Hct MCV MCH MCHC RDW Plt Count MPV ESR 13 Sodium 140 Potassium 4.2 Chloride 105 Carbon Dioxide 28 Anion Gap 7 L BUN 11.0 Creatinine 1.3 Est GFR (CKD-EPI)AfAm 59.73 Est GFR (CKD-EPI)NonAf 51.53 POC Glucometer 139 Random Glucose 130 H Calcium 9.5 Vital Signs Temperature 98.4 F 11/30/19 15:16 Pulse Rate 65 11/30/19 15:16 Respiratory Rate 16 11/30/19 15:16 Blood Pressure 144/78 11/30/19 15:16 O2 Sat by Pulse Oximetry (%) 100 11/30/19 15:16 CC: far less GI discomfort today; wishes to eat more solid food ```````````````````````` Gen'l: appears alert, coherent non toxic. skin--NL color heart--RR abd--BS quiet, soft, NT in the lower abd. ext--no edema neuro--alert; coherent speech is clear, non focal; fully ambulatory `````````````````````````````````````` Summ > pain abd--much improved, HIDA shows delayed filling and emptying w/o CB duct stones; suggesting chronic GB disease. ESR WNL, non toxic appearing at this time. Given hx of DM and fam hx of GB disease (sister), it would not be unreasonable to remove the GB. PCP informs me that wish to have a 2nd surg opinion, for which Dr Love has ordered. Plan: will advance to soft deit for now > Htn--BP remains okay; he should be sufficiently stable to undergo any Lap procedure > DM--on sliding scale. > anemia--mild; not new. ```````````````````````````````````````````````` D/w who is at the bedside ~~~~~~~~~~~~~~~~~~~~~~~~~~~~~ dr Mistry Problem List - Problems (1) Abdominal pain Code(s): R10.9 - UNSPECIFIED ABDOMINAL PAIN Qualifiers: Abdominal location: right lower quadrant Qualified Code(s): R10.31 - Right lower quadrant pain (2) Diabetes Code(s): E11.9 - TYPE 2 DIABETES MELLITUS WITHOUT COMPLICATIONS Qualifiers: Diabetes mellitus type: type 2 (3) HTN (hypertension) Code(s): I10 - ESSENTIAL (PRIMARY) HYPERTENSION Qualifiers: Hypertension type: unspecified Qualified Code(s): I10 - Essential (primary) hypertension (4) Hyperlipidemia Code(s): E78.5 - HYPERLIPIDEMIA, UNSPECIFIED Qualifiers: Hyperlipidemia type: unspecified Qualified Code(s): E78.5 - Hyperlipidemia, unspecified (5) Anemia Code(s): D64.9 - ANEMIA, UNSPECIFIED Qualifiers: Anemia type: unspecified type Qualified Code(s): D64.9 - Anemia, unspecified (6) Hypothyroid Code(s): E03.9 - HYPOTHYROIDISM, UNSPECIFIED Qualifiers: Hypothyroidism type: unspecified Qualified Code(s): E03.9 - Hypothyroidism, unspecified (7) Bradycardia Code(s): R00.1 - BRADYCARDIA, UNSPECIFIED (8) Renal insufficiency, mild Code(s): N28.9 - DISORDER OF KIDNEY AND URETER, UNSPECIFIED
[2019-12-01] MEDS: SIMETHICONE 80 MG TAB.CHEW (FP) PO SCH ×2 (06:03→09:31)
[2019-12-01] MEDS: INSULIN SLIDING SCALE (NOVOLOG) 1 VIAL SQ SCH (06:04)
[2019-12-01 07:16] VITALS: TEMP 98.8
--- NOTE | 2019-12-01 09:27 | PN ---
Progress Note (short form) - Note Progress Note: Attending Surgeon No c/o; passing flatus and have liquid BM's; tolerating diet VSS AF abdo-soft and non tender WBC-nl IMP; improved PLAN: Reconsult prn; may f/u as an outpatient if so desired. Jon Reagan MD FACS
[2019-12-01] MEDS: DOCUSATE SODIUM 100 MG CAPSULE (FP) PO SCH (09:29)
[2019-12-01] MEDS ORDERED: LEVOTHYROXINE NA 75 MCG TABLET (FP) PO SCH (09:30)
[2019-12-01] MEDS: POLYETHYLENE GLYCOL 3350 119 GM BTL PO SCH (09:31)
[2019-12-01] MEDS ORDERED: sitaGLIPtin PHOSPHATE 50 MG TABLET PO ONE (10:30)
--- NOTE | 2019-12-01 10:44 | DS ---
Physical Examination Vital Signs: Vital Signs Temperature 98.8 F 12/01/19 06:00 Pulse Rate 57 L 12/01/19 06:00 Respiratory Rate 18 12/01/19 06:00 Blood Pressure 126/68 12/01/19 06:00 O2 Sat by Pulse Oximetry (%) 97 12/01/19 06:00 Findings/Remarks: skin--NL color eyes--midline heart--RR slow lungs--clear abd--soft, NT, BS+ ext--no edema neuro--fully alert, in NAD, no ill or toxic appearing Laboratory Results - last 24 hr 11/30/19 11/30/19 11/30/19 08:15 11:59 16:48 ESR 13 POC Glucometer 139 256 12/01/19 06:01 ESR POC Glucometer 171 Labs: CBC, BMP 11/30/19 08:15 11/30/19 08:15 Discharge Summary Problems reviewed: Yes Reason For Visit: ABDOMINAL PAIN Current Active Problems Abdominal pain (Acute) Bradycardia (Acute) Hypothyroid (Acute) Renal insufficiency, mild (Acute) anemia (mild) chronic cholecystitis DM Htn Incomplete RBBB Hospital Course: 79 YO M with Hx of DM, Htn c/o Rt sided generalized abd pain w/o vomiting or diarrhea. 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 His abd exam was non acute, he was kept NPO and seen by Surgeon who elected to observe him given the physical findings. His diet was upgraded and some of his meds were resumed and then he again had a recurrence of the abd pain in the same manner as on admission. He was again seen by surgeon, and more imaging was done including a HIDA (which revealed chronic GB dz w/o any obstruction). His diet was reverted top clear liquids and a day later his pain subsided. It was the final conclusion by the surgeon not to surgically intervene based on benign clinical grounds. He advised OP f/u. This was discussed with the patient and his PCP, all of whom were in agreement. Health Concerns: recurrence of abd pain Plan of Treatment: bland soft diet Goals: f/u with surgeon as OP Condition: Improved - Instructions Diet, Activity, Other Instructions: very soft diet; small meals; no fatty or fried foods. stop: Aspirin, Irbesartan, metformin, Glipizide, Metoprolol See Dr Love on Tuesday Come back to the ER if abdominal pain returns. Referrals: Jon Reagan MD [Staff Physician] - 1 Week Alexander Gallegos MD [Staff Physician] - Ayad Love MD [Primary Care Provider] - Disposition: HOME - Home Medications Comprehensive Discharge Medication List: Ambulatory Orders Atorvastatin Ca [Lipitor] 10 mg PO HS 01/15/19 Levothyroxine [Synthroid -] 75 mcg PO DAILY 01/15/19 Sitagliptin Phosphate [Januvia] 50 mg PO DAILY 01/15/19 Insulin Lispro [Humalog] unit SQ AC 11/23/19 Famotidine 20mg daily
[2019-12-01 11:12] VITALS: BP 94/66; PULSE 72
== END 2019-12-01 11:52 | disposition home or self-care (01) | DRG 445 ==
LOC: JER 08:23 → JERBED 13:03 → J6S 20:41
PROVIDERS: ADMIT Internal Medicine Hematology & Oncology; ATTEND Internal Medicine Hematology & Oncology
DX: K82.8 Other specified diseases of gallbladder (principal); Z68.1 Body mass index [BMI] 19.9 or less, adult; K81.9 Cholecystitis, unspecified; R63.0 Anorexia; E11.9 Type 2 diabetes mellitus without complications; I10 Essential (primary) hypertension; E78.5 Hyperlipidemia, unspecified; E03.9 Hypothyroidism, unspecified; K40.90 Unilateral inguinal hernia, without obstruction or gangrene, not specified as recurrent; I45.10 Unspecified right bundle-branch block; E86.0 Dehydration; N28.9 Disorder of kidney and ureter, unspecified; R00.1 Bradycardia, unspecified; D64.9 Anemia, unspecified; Z87.11 Personal history of peptic ulcer disease
CPT/HCPCS: 36415; 71045-TC-FY; 74176-TC; 74177-TC; 76705-TC; 78226-TC; 80048; 80053; 81003; 82962; 83036; 83690; 84443; 85025; 85027; 85610; 85651; 85730; 93005; 93010; 99285-25; A9537; J0131; U0003

== ENCOUNTER 2019-12-26 04:25 | Day surgery (SDC) | payer OTHER, MEDICARE ==
--- OUTSIDE RECORDS SUMMARY | 2019-12-21 15:57 | XMS ---
:1940 [facility] Support Name Relationship Address Phone RE, RETIRED Unavailable Unavailable Unavailable RE Unavailable Unavailable Unavailable YAEL LOYA [address] [address] SHALINI Spouse [address] [phone] [place] [address] Re-disclosure Warning The records that you are about to access may contain information from federally- assisted alcohol or drug abuse programs. If such information is present, then the following federally mandated warning applies: This information has been disclosed to you from records protected by federal confidentiality rules (42 CFR part 2). The federal rules prohibit you from making any further disclosure of this information unless further disclosure is expressly permitted by the written consent of the person to whom it pertains or as otherwise permitted by 42 CFR part 2. A general authorization for the release of medical or other information is NOT sufficient for this purpose. The Federal rules restrict any use of the information to criminally investigate or prosecute any alcohol or drug abuse patient.The records that you are about to access may contain highly sensitive health information, the redisclosure of which is protected by Article 27-F of the [facility] Public Health law. If you continue you may haveaccess to information: Regarding HIV / AIDS; Provided by facilities licensed or operated by the [facility] Office of Mental Health; or Provided by the [facility] Office for People With Developmental Disabilities. If such information is present, then the following [facility] mandated warning applies: This information has been disclosed to you from confidential records which are protected by state law. State law prohibits you from making any further disclosure of this information without the specific written consent of the person to whom it pertains, or as otherwise permitted by law. Any unauthorized further disclosure in violation of state law may result in a fine or nursing home sentence or both. A general authorization for the release of medical or other information is NOT sufficient authorization for further disclosure. Insurance Providers Payer name Policy type Policy ID Covered Covered alliance party's Policy P jaya / Coverage alliance party ID relationship to Curiel Inf ormation type curiel MEDICARE [id number] [facility] [id number] SP [id number] CARE OPTIONS MEDICARE [id number] A Results ID Date Data Source [id number] 11/23/2019 02:25:00 PM EDT [facility] Name Value Range Interpretation Description Data Sup porting Code Source(s) Document(s ) SARS [facility] coronavirus 2 RNA This lab was ordered by [facility] and reported by [facility]. Procedure
[2019-12-24 19:22] VITALS: BMI 19.3
--- OUTSIDE RECORDS SUMMARY | 2019-12-26 04:36 | XMS ---
:1940 [facility] Support Name Relationship Address Phone RE, RETIRED Unavailable Unavailable Unavailable RE Unavailable Unavailable Unavailable YAEL LOYA [address] [place] [address] SHALINI Spouse [address] [phone] [place] [address] Re-disclosure Warning The records that you are [...] is protected by Article 27-F of the [facility] Public Health law. If you continue you may haveaccess to information: Regarding HIV / AIDS; Provided by facilities licensed or operated by the [facility] Office of Mental Health; or Provided by the [facility] Office for People With Developmental Disabilities. If such information is present, then the following [facility] mandated warning applies: This information has been [...] law may result in a fine or m[facility]p sentence or both. A general authorization for the release of medical or other information is NOT sufficient authorization for further disclosure. Insurance Providers Payer name Policy type Policy ID Covered Covered democrat's Policy P jaya / Coverage democrat ID relationship to Curiel Inf ormation type curiel MEDICARE [id number] SP [id number] [facility] [id number] SP [id number] CARE OPTIONS [facility] [id number] SP [id number] CARE OPTIONS MEDICARE [id number] SP [id number] MEDICARE [id number] A Results ID Date Data Source [id number] 12/22/2019 08:25:00 AM EDT [facility] Name Value Range Interpretation Description Data Sup porting Code Source(s) Document(s ) SARS [facility] coronavirus 2 RNA This lab was ordered by [facility] and reported by [facility]. ID Date Data Source [id number] 11/23/2019 02:25:00 PM EDT [facility] Name Value Range Interpretation Description Data Sup porting Code Source(s) Document(s ) SARS [facility] coronavirus 2 RNA This lab was ordered by [facility] and reported by [facility]. Procedure
[2019-12-26] MEDS ORDERED: EPHEDRINE SULFATE/0.9% NACL/PF 50 MG/10 ML SYRINGE NR ONE (13:51)
[2019-12-26] MEDS ORDERED: ceFAZolin SODIUM 1 GM VIAL ONE ×2 (13:51→16:18)
[2019-12-26] MEDS ORDERED: PROPOFOL 20 ML ONE ×3 (13:51→16:29)
[2019-12-26] MEDS ORDERED: ROCURONIUM BROMIDE 50 MG/5 ML SYRINGE ONE (13:51)
[2019-12-26] MEDS ORDERED: fentaNYL CITRATE 250 MCG/5 ML VIAL ONE (14:59)
[2019-12-26] MEDS ORDERED: MIDAZOLAM HCL 2 MG/2 ML SINGLE DOSE VIAL ONE (15:08)
[2019-12-26] MEDS ORDERED: ceFAZolin SODIUM 1 GM VIAL IVPB ONE (15:15)
[2019-12-26] MEDS ORDERED: LIDOCAINE HCL 2% JELLY (5 ML/TUBE) ONE (16:18)
[2019-12-26] MEDS ORDERED: LIDOCAINE HCL/PF 2% SDV 5ML VIAL ONE (16:18)
[2019-12-26] MEDS ORDERED: NEOSTIGMINE METHYLSULFATE 0.5 MG/ML - 10 ML MDV ONE (16:18)
[2019-12-26] MEDS ORDERED: GLYCOPYRROLATE 0.2 MG/1 ML VIAL ONE (16:18)
[2019-12-26] MEDS ORDERED: DEXAMETHASONE SOD PHOSPHATE 4 MG/1 ML VIAL ONE (16:18)
[2019-12-26] MEDS ORDERED: PROMETHAZINE HCL 25 MG/1 ML VIAL IVPUSH PRN (16:32)
[2019-12-26] MEDS ORDERED: ONDANSETRON 4 MG/2 ML VIAL IVPUSH PRN ×2 (16:32→16:56)
[2019-12-26] MEDS ORDERED: LACTATED RINGERS SOLUTION 1,000 ML IV SCH (16:45)
[2019-12-26] MEDS ORDERED: BUPIVACAINE HCL/PF 0.5% (5 MG/ML) 30 ML VIAL IJ ONE (16:45)
[2019-12-26] MEDS ORDERED: METOPROLOL TARTRATE 5 MG/5 ML VIAL ONE (16:50)
[2019-12-26] MEDS ORDERED: SUCCINYLCHOLINE CHLORIDE 200 MG/10 ML SYRINGE ONE (16:52)
[2019-12-26] MEDS ORDERED: oxyCODONE HCL 5 MG TABLET PO PRN ×2 (16:56)
[2019-12-26] MEDS ORDERED: FLU VACCINE (FLULAVAL) PF 60 MCG/0.5 ML SYRINGE 2020-2021 IM ONE (18:44)
--- NOTE | 2019-12-26 19:35 | CON.CARD ---
Consult Consult Specialty:: Cardiology - History of Present Illness History of Present Illness: 78-year-old male (scott Freire), with hx CVA, HTN, hyperlioidemia, DM, admitted s/p gallbladder surgery. - History Source History Provided By: Patient, Family Member, Medical Record - Past Medical History Cardio/Vascular: Yes: HTN, Hyperlipdemia Gastrointestinal: Yes: Peptic Ulcer Disease (old) Endocrine: Yes: Diabetes Mellitus, Hypothyroidism - Past Surgical History Past Surgical History: Yes: Hernia Repair (RIH ) - Alcohol/Substance Use Hx Alcohol Use: Yes (Wine) History of Substance Use: reports: None - Smoking History Smoking history: Former smoker Have you smoked in the past 12 months: No If you are a former smoker, when did you quit?: 55 years ago - Social History Usual Living Arrangement: With Spouse ADL: Independent Occupation: retired from construction History of Recent Travel: No Home Medications - Allergies Allergies/Adverse Reactions: Allergies Allergy/AdvReac Type Severity Reaction Status Date / Time No Known Allergies Allergy Verified 12/26/19 12:56 - Home Medications Home Medications: Ambulatory Orders Atorvastatin Ca [Lipitor] 10 mg PO HS 01/15/19 Levothyroxine [Synthroid -] 75 mcg PO DAILY 01/15/19 Insulin Lispro [Humalog Kwikpen U-100] 1 unit SQ AC 11/23/19 Insulin Degludec [Tresiba Flextouch U-100] 6 unit SQ HS 12/24/19 Family Medical History Family Hx Cancer: Brother (Colon cancer) Review of Systems - Review of Systems Constitutional: reports: No Symptoms Eyes: reports: No Symptoms HENT: reports: No Symptoms Neck: reports: No Symptoms Cardiovascular: reports: No Symptoms Respiratory: reports: No Symptoms Gastrointestinal: reports: Abdominal Pain Genitourinary: reports: No Symptoms Breasts: reports: No Symptoms Reported Musculoskeletal: reports: No Symptoms Integumentary: reports: No Symptoms Neurological: reports: No Symptoms Endocrine: reports: No Symptoms Hematology/Lymphatic: reports: No Symptoms Psychiatric: reports: No Symptoms Vital Signs: Vital Signs Temperature 97.3 F L 12/26/19 19:15 Pulse Rate 52 L 12/26/19 19:15 Respiratory Rate 18 12/26/19 19:15 Blood Pressure 156/75 12/26/19 19:15 O2 Sat by Pulse Oximetry (%) 98 12/26/19 19:15 Constitutional: Yes: Well Nourished, No Distress, Calm Eyes: Yes: WNL, Conjunctiva Clear, EOM Intact HENT: Yes: WNL, Atraumatic, Normocephalic Neck: Yes: WNL, Supple, Trachea Midline Respiratory: Yes: WNL, Regular, CTA Bilaterally Gastrointestinal: Yes: WNL, Normal Bowel Sounds Renal/: Yes: WNL Cardiovascular: Yes: WNL, Regular Rate and Rhythm Musculoskeletal: Yes: WNL Extremities: Yes: WNL Integumentary: Yes: WNL Neurological: Yes: WNL, Alert, Oriented ...Motor Strength: WNL Psychiatric: Yes: WNL, Alert, Oriented Imaging - Results Chest X-ray: Image Reviewed (no i/e) EKG: Image Reviewed (s iván 1 st degree avb) Problem List - Problems (1) MOHSEN (acute kidney injury) Code(s): N17.9 - ACUTE KIDNEY FAILURE, UNSPECIFIED (2) Abdominal pain Code(s): R10.9 - UNSPECIFIED ABDOMINAL PAIN (3) Abnormal EKG Code(s): R94.31 - ABNORMAL ELECTROCARDIOGRAM [ECG] [EKG] (4) Anemia Code(s): D64.9 - ANEMIA, UNSPECIFIED Qualifiers: (5) Bradycardia Code(s): R00.1 - BRADYCARDIA, UNSPECIFIED (6) CVA (cerebral vascular accident) Code(s): I63.9 - CEREBRAL INFARCTION, UNSPECIFIED (7) Chest pain Code(s): R07.9 - CHEST PAIN, UNSPECIFIED (8) Diabetes Code(s): E11.9 - TYPE 2 DIABETES MELLITUS WITHOUT COMPLICATIONS (9) HTN (hypertension) Code(s): I10 - ESSENTIAL (PRIMARY) HYPERTENSION Qualifiers: (10) History of CVA (cerebrovascular accident) Code(s): Z86.73 - PRSNL HX OF TIA (TIA), AND CEREB INFRC W/O RESID DEFICITS (11) Hyperlipidemia Code(s): E78.5 - HYPERLIPIDEMIA, UNSPECIFIED Qualifiers: (12) Hypertension with impaired renal function Code(s): I12.9 - HYPERTENSIVE CHRONIC KIDNEY DISEASE W STG 1-4/UNSP CHR KDNY (13) Hypothyroid Code(s): E03.9 - HYPOTHYROIDISM, UNSPECIFIED Qualifiers: (14) Renal insufficiency, mild Code(s): N28.9 - DISORDER OF KIDNEY AND URETER, UNSPECIFIED Assessment/Plan 78-year-old male (b. Mouna), with hx CVA, HTN, hyperlioidemia, DM, who underwent Lap Choli Plan; Cardiac chapman stable EKG in AM DVT PLX
[2019-12-26] MEDS ORDERED: ATORVASTATIN CA 10 MG TABLET (FP) PO SCH (22:00)
[2019-12-27] MEDS ORDERED: INSULIN (NOVOLOG) ASPART 100 UNITS/ML 10ML VIAL ONE (06:09)
[2019-12-27] MEDS ORDERED: INSULIN SLIDING SCALE (NOVOLOG) 1 VIAL SQ SCH ×3 (07:00)
[2019-12-27] MEDS ORDERED: LEVOTHYROXINE NA 75 MCG TABLET (FP) PO SCH (07:00)
[2019-12-27 07:28] LABS: BASO % 0.3 % (0-2.0); EOS % 0.1 % (0-4.5); HEMATOCRIT 32.7 % (35.4-49); HEMOGLOBIN 11.1 GM/dL (11.7-16.9); LYMPH % 13.5 % (8-40); MCH 32.2 pg (25.7-33.7); MCHC 33.9 g/dl (32.0-35.9); MEAN CELL VOLUME 94.9 fl (80-96); MONO % 7.7 % (3.8-10.2); NEUT % 78.4 % (42.8-82.8); PLATELET COUNT 123 K/MM3 (134-434); RBC 3.44 M/mm3 (4.00-5.60); RDW 13.1 % (11.9-15.9); WHITE BLOOD COUNT 9.2 K/mm3 (4.0-10.0)
[2019-12-27 07:51] LABS: BLOOD UREA NITROGEN 23.8 mg/dL (7-18); CALCIUM 9.1 mg/dL (8.5-10.1); CREATININE 1.5 mg/dL (0.55-1.3); POTASSIUM 5.3 mmol/L (3.5-5.1)
--- NOTE | 2019-12-27 08:30 | OP ---
DATE OF OPERATION: 12/26/2019 PREOPERATIVE DIAGNOSIS: Chronic cholecystitis, biliary dyskinesia. PROCEDURE: Laparoscopic cholecystectomy. SURGEON: Manuel Doss MD PULLEY MAN: ANNI Lee COMPLICATIONS: None. BLEEDING: Minimal. CONDITION: The patient tolerated the procedure well. FINDINGS: Massively distended gallbladder. INDICATION: This is an 79-year-old male who presents right upper quadrant pain and was admitted to the hospital last month with abdominal pain and chronic cholecystitis and a very largely distended gallbladder seen on ultrasound and CT scan of the abdomen. At this time the patient is referred for elective cholecystectomy. I evaluated the patient in the office. We discussed the risks and complications and the need for surgery. He agreed to proceed as planned due to his chronic unrelenting pain. PROCEDURE IN DETAIL: In the operating room he was placed in the supine position. After induction of general anesthesia, he was prepped and draped in the usual sterile fashion. The operation began with insufflation to a pressure of 15 mmHg. A periumbilical incision was performed with a scalpel and access to the peritoneal cavity was performed under direct vision by opening the fascia and peritoneum. Under direct vision a 12-mm port was introduced here and then under direct vision three 5-mm ports were introduced, one in the epigastrium and two in the right upper quadrant. Of note, we noticed no adhesions secondary to his previous gastrectomy. At this point then the patient was positioned in the reverse Trendelenburg position. The gallbladder was massively distended, but did not show any signs of acute inflammation at this point. It was grasped and retracted superiorly and laterally. The infundibular region of the gallbladder was dissected bluntly using [place] dissector with the occasional use of cautery. The cystic artery and cystic duct were then both exposed. They were circumferentially dissected. The cystic duct was clearly seen entering into the common bile duct and the common bile duct was visualized both proximal and distal to the cystic duct entry. Care was taken to establish critical view of safety with the visualization of bare area of the liver and the cystic artery was within the triangle of Calot. At this point then the cystic duct and cystic artery were both doubly ligated with Endoclips and divided with Endo Jose M. The gallbladder was dissected off the liver bed with the use of a hook dissector, taking care to avoid injury to the liver bed. There was minimal bleeding and this was controlled with cautery. The gallbladder was then placed in a large Endo Catch bag. Right upper quadrant irrigated and suctioned appropriately. The fascia had to be extended significantly in order to allow extraction of the specimen which was very large and at this point the fascia was closed in 2 layers, closing the posterior sheath with 0 Vicryl suture in a running fashion. The anterior sheath was closed with interrupted [id number] sutures and the skin was closed with 4-0 Monocryl at all port sites. Dermabond was applied and the patient was returned to the recovery room awake and alert in stable condition. He tolerated the procedure well. Susana [id number]
--- NOTE | 2019-12-27 09:02 | PN ---
Progress Note (short form) - Note Progress Note: GENERAL SURGERY POD #1 Seen & examined at bedside. Sitting on edge of bed eating breakfast. He is OOB and ambulating unassisted. Voiding without issues. Pain managed well. Denies n/v/f/c, CP, palpitations, SOB or LEBRON. AVSS. Afebrile. Gen: alert. nad. Pulm: unlabored respirations on room air ABD: all surgical ports c/d/i LE: all compartments soft. supple. nt. Problem List - Problems (1) S/P laparoscopic cholecystectomy Code(s): Z90.49 - ACQUIRED ABSENCE OF OTHER SPECIFIED PARTS OF DIGESTIVE TRACT (2) Biliary dyskinesia Code(s): K82.8 - OTHER SPECIFIED DISEASES OF GALLBLADDER (3) Chronic cholecystitis Code(s): K81.1 - CHRONIC CHOLECYSTITIS (4) HTN (hypertension) Code(s): I10 - ESSENTIAL (PRIMARY) HYPERTENSION Qualifiers: (5) Diabetes Code(s): E11.9 - TYPE 2 DIABETES MELLITUS WITHOUT COMPLICATIONS
[2019-12-27 09:31] VITALS: BP 117/66; PULSE 82; TEMP 98.6
[2019-12-27] MEDS ORDERED: HEPARIN NA (PORCINE) 5,000 UNITS/ML 1ML VIAL SQ SCH (10:00)
--- NOTE | 2019-12-27 14:00 | EKG ---
Test Reason : Blood Pressure : / mmHG Vent. Rate : 060 BPM Atrial Rate : 060 BPM P-R Int : 290 ms QRS Dur : 098 ms QT Int : 464 ms P-R-T Axes : 048 -38 -20 degrees QTc Int : 464 ms POOR DATA QUALITY, INTERPRETATION MAY BE ADVERSELY AFFECTED SINUS RHYTHM WITH 1ST DEGREE A-V BLOCK LEFT AXIS DEVIATION ABNORMAL ECG WHEN COMPARED WITH ECG OF 23-NOV-2019 17:11, INVERTED T WAVES HAVE REPLACED NONSPECIFIC T WAVE ABNORMALITY IN INFERIOR LEADS Confirmed by LILIAN DARBY MD ([id number]) on 12/27/2019 2:00:27 PM Referred By: Manuel Doss Confirmed By:LILIAN DARBY MD
--- NOTE | 2019-12-28 10:41 | OP ---
Operative Note - Note: Operative Date: 12/28/19 Pre-Operative Diagnosis: chronic cholecystitis Operation: laproscopic cholecystectomy Post-Operative Diagnosis: Same as Pre-op Surgeon: Manuel Doss Echocardiographer: Blanco Marcelo Anesthesia: General Estimated Blood Loss (mls): 20 Operative Report Dictated: Yes
--- NOTE | 2019-12-28 10:42 | SURG ---
Surgery Medical Chief Technician Note Medical Chief Technician: Blanco Marcelo PA-C Date of Service: 12/28/19 Diagnosis: chronic cholecystitis Procedure: laproscopic cholecystectomy I was present for the entirety of the operative procedure. For further detail, please refer to operative report. Visit type - Case Type Case Type: Scheduled - Emergency Emergency Visit: No - New patient This patient is new to me today: Yes Date on this admission: 12/28/19 - Critical Care Critical Care patient: No
--- NOTE | 2020-01-03 12:23 | PATH ---
Surgical Pathology Report Patient Name: ISRRAEL LOYA [facility]. Rec. #: [id number] /Age/Gender: 1940 (Age: 79) / M Account: [id number] Location: AMBULATORY SURG Taken: 12/26/2019 Received: 12/27/2019 Reported: 01/03/2020 Physicians: Manuel Doss M.D. Specimen(s) Received GALLBLADDER Clinical History Cholelithiasis, cholecystitis Final Diagnosis GALLBLADDER, LAPAROSCOPIC CHOLECYSTECTOMY: TWO FOCI OF ADENOCARCINOMA, BILIARY TYPE, MODERATELY DIFFERENTIATED. FIRST FOCUS MEASURES 9 MM IN GREATEST MICROSCOPIC DIMENSION, PRESENT WITHIN GALLBLADDER NECK AND INVADES INTO PERIMUSCULAR CONNECTIVE TISSUE. SECOND FOCUS MEASURES 8 MM IN GREATEST MICROSCOPIC DIMENSION, SEEN ADHERED ON GALLBLADDER BODY SEROSA, AND INVADES INTO THE LIVER PARENCHYMA. SMALL INTRACHOLECYSTIC PAPILLARY-TUBULAR NEOPLASM (1), MULTIFOCAL DYSPLASIA, CHRONIC CHOLECYSTITIS, AND CHOLELITHIASIS PRESENT. FOCAL LYMPHOVASCULAR INVASION IDENTIFIED. NO PERINEURAL INVASION IDENTIFIED. ONE PERIDUCTAL LYMPH NODE NEGATIVE FOR CARCINOMA (0/1). CARCINOMA IS <1 MM FROM LIVER PARENCHYMA/CAUTERIZED MARGIN. CYSTIC DUCT MARGIN IS NEGATIVE FOR INVASIVE CARCINOMA AND HIGH-GRADE INTRAEPITHELIAL NEOPLASIA; INVASIVE CARCINOMA IS GROSSLY ATLEAST 2 CM AWAY. AJCC TNM STAGE (8th EDITION): pT3(m) pN0. SEE SUMMARY REPORT. SEE COMMENT. Comment: There are two foci of adenocarcinoma present in the gall bladder neck and body. The tumor is comprised of well-formed malignant glands with focal cribriform areas and associated desmoplasia. Focal intestinal metaplasia is noted. One of the foci invades into the perimuscular connective tissue. The second focus invades into the liver parenchyma. Immunohistochemical stains performed and interpreted at [facility] show the tumor is positive for AE1/3, CK7 and CK20 (focal to patchy). Small intracholecystic papillary-tubular neoplasm, multifocal dysplasia ,and chronic cholecystitis are present. Case seen in intradepartmental review with consensus on diagnosis. Case discussed with Dr. Cruz, 01/03/20. Positive and negative controls (internal if applicable) show appropriate results. Comments Surgical Pathology Cancer Case summary AJCC TNM Staging, 8th Edition Procedure _X_ Simple cholecystectomy (laparoscopic or open) Tumor Site _X__ Body _X__ Neck Tumor Size Greatest dimension (centimeters): 9 mm and 8 mm Histologic Type Adenocarcinoma _X__ Adenocarcinoma, biliary type Histologic Grade _X__ G2: Moderately differentiated Tumor Extension _X__ Tumor directly invades the liver Margins Cystic Duct Margin _X__ Uninvolved by invasive carcinoma and high-grade intraepithelial neoplasia Distance of invasive carcinoma from margin (millimeters or centimeters): 2 cm (gross measurement) Liver Parenchymal Margin _X__ Uninvolved by invasive carcinoma Distance of invasive carcinoma from margin (millimeters or centimeters): <1 mm Lymphovascular Invasion _X__ Present Perineural Invasion _X__ Not identified Regional Lymph Nodes Number of Lymph Nodes Involved: 0 Number of Lymph Nodes Examined: 1 Pathologic Stage Classification (pTNM, AJCC 8th Edition) TNM Descriptors _X_ m (multiple primary tumors) Primary Tumor (pT) _X_ pT3: Tumor perforates the serosa (visceral peritoneum) and/or directly invades the liver and/or one other adjacent organ or structure, such as the stomach, duodenum, colon, pancreas, omentum, or extrahepatic bile ducts Regional Lymph Nodes (pN) _X_ pN0: No regional lymph node metastasis Additional Pathologic Findings _X_ Dysplasia/adenoma _X__ Cholelithiasis _X__ Chronic cholecystitis _X__ Intestinal metaplasia ___ Electronically Signed Cheyanne Maier M.D. Gross Description Received in formalin, labeled "gallbladder," is a 15.0 x 7.5 x 7.0 cm. gallbladder with a 0.4 cm. in length portion of cystic duct attached. There is a 1.3 x 0.9 x 0.4 cm camarena-brown periductal lymph node present. There is an additional 0.8 x 0.5 x 0.3 cm camarena, firm nodule in the fibrous tissue adhered to the gallbladder in the central portion (body) of the specimen, 8 cm from the cystic duct margin. The outer surface is camarena green and varies from smooth to shaggy. The lumen contains black, sludge-like bile as well as abundant black, irregular to fragmented choleliths ranging from 0.1-0.7 cm in greatest dimension. The mucosa displays a 0.2 cm in greatest dimension possible polyp. The wall of the gallbladder measures 0.1 cm. in thickness with a focal 1.0 x 0.7 cm submucosal thickening within the gall bladder neck. The submucosal thickening is 2 cm from the cystic duct margin. Entire specimen is submitted in 49 cassettes as follows: 1-cystic duct margin and bisected periductal lymph node; 2-firm nodule in fibrous tissue adhered to gallbladder body; 3- mucosal polyp; 4-submucosal thickening; 5-uninvolved marketing sales representative sections of gallbladder. Additional cassettes are submitted as follows: 6-remaining sections of submucosal thickening; 0-6-jwysaflqsh marketing sales representative random full thickness sections of gallbladder. The remainder of the specimen is entirely submitted as follows: 10-29- full thickness sections of liver bed side of gallbladder (adventitial surface) sequentially submitted from superior to inferior; 30-48-full thickness sections of serosal surface of gallbladder sequentially submitted from superior to inferior; 49-proximal cystic duct. DL12/28/2019 saudi12/28/2019
== END 2019-12-27 10:00 | disposition home or self-care (01) ==
LOC: JASU-SURG 04:25 → JASUSAT 04:25 → J6S 18:29 → JASUSAT 12-27 10:00
PROVIDERS: ATTEND Surgery
PROC: 0FT44ZZ Resection of Gallbladder, Percutaneous Endoscopic Approach (ICD-10-PCS; principal; 2019-12-26 15:00)
DX: K81.1 Chronic cholecystitis (principal); K82.8 Other specified diseases of gallbladder
CPT/HCPCS: 36415; 80048; 82962; 85025; 86850; 86900; 86901; 88307-TC; 88341-TC; 88342-TC; 93005; 93010; 94760; Q2036

== ENCOUNTER 2020-03-03 05:32 | Day surgery (SDC) | payer OTHER, MEDICARE ==
[2020-03-03] MEDS ORDERED: SODIUM CHLORIDE 250 ML IV ONE (09:00)
[2020-03-03] MEDS ORDERED: PALONOSETRON HCL 0.25 MG/5 ML VIAL IVPUSH ONE (10:00)
[2020-03-03] MEDS ORDERED: DEXAMETHASONE SODIUM PHOSPHATE 10 MG in SODIUM CHLORIDE 50 ML IVPB ONE (10:00)
[2020-03-03] MEDS ORDERED: PACLITAXEL PROTEIN BOUND IVPB ONE (10:30)
[2020-03-03] MEDS ORDERED: SODIUM CHLORIDE IVPB ONE (10:30)
[2020-03-03] MEDS ORDERED: GEMCITABINE HCL IV ONE (11:00)
[2020-03-03] MEDS ORDERED: SODIUM CHLORIDE IV ONE (11:00)
[2020-03-03 11:19] LABS: BASO % 0.9 % (0-2.0); EOS % 0.9 % (0-4.5); HEMATOCRIT 35.8 % (35.4-49); HEMOGLOBIN 12.1 GM/dL (11.7-16.9); LYMPH % 43.8 % (8-40); MCH 32.8 pg (25.7-33.7); MCHC 33.7 g/dl (32.0-35.9); MEAN CELL VOLUME 97.4 fl (80-96); MONO % 8.7 % (3.8-10.2); NEUT % 45.7 % (42.8-82.8); RBC 3.67 M/mm3 (4.00-5.60); RDW 14.7 % (11.9-15.9)
[2020-03-03 11:36] LABS: POTASSIUM 4.8 mmol/L (3.5-5.1)
[2020-03-03 11:38] LABS: BLOOD UREA NITROGEN 31.6 mg/dL (7-18); CALCIUM 9.3 mg/dL (8.5-10.1)
[2020-03-03 11:39] LABS: ALBUMIN 3.8 g/dl (3.4-5.0); MAGNESIUM 2.2 mg/dL (1.8-2.4)
[2020-03-03 11:40] LABS: BILIRUBIN,DIRECT 0.2 mg/dL (0.0-0.2); CREATININE 1.3 mg/dL (0.55-1.3)
[2020-03-03 11:42] LABS: WHITE BLOOD COUNT 7.6 K/mm3 (4.0-10.0)
[2020-03-03 11:43] LABS: TOT PROT 7.2 g/dl (6.4-8.2)
[2020-03-03 11:49] LABS: BILIRUBIN,TOTAL 0.3 mg/dL (0.2-1)
[2020-03-03 12:19] LABS: PLATELET COUNT 122 K/MM3 (134-434)
[2020-03-03 12:25] LABS: PLATELET ESTIMATE DECREASED
[2020-03-03 17:26] VITALS: TEMP 97.9
[2020-03-03 17:43] VITALS: BP 106/60; PULSE 70
== END 2020-03-03 15:40 | disposition home or self-care (01) ==
LOC: JONCCHEMO 05:32
PROVIDERS: ATTEND Internal Medicine Hematology & Oncology
DX: Z51.11 Encounter for antineoplastic chemotherapy (principal); C25.9 Malignant neoplasm of pancreas, unspecified; E11.9 Type 2 diabetes mellitus without complications; I10 Essential (primary) hypertension; D70.1 Agranulocytosis secondary to cancer chemotherapy; Z79.4 Long term (current) use of insulin
CPT/HCPCS: 36415; 80048; 80076; 83735; 85025; 96361; 96375; 96413; 96417; J2469; J9264

== ENCOUNTER 2020-03-04 05:46 | Day surgery (SDC) | payer OTHER, MEDICARE ==
[2020-03-04] MEDS ORDERED: PEGFILGRASTIM-CBQV (UDENYCA) 6 MG/0.6 ML SYRINGE SQ ONE (10:00)
[2020-03-04 17:48] VITALS: BP 112/68; PULSE 93; TEMP 97.9
== END 2020-03-04 13:20 | disposition home or self-care (01) ==
LOC: JONCCHEMO 05:46
PROVIDERS: ATTEND Internal Medicine Hematology & Oncology
PROC: 3E013GC Introduction of Other Therapeutic Substance into Subcutaneous Tissue, Percutaneous Approach (ICD-10-PCS; principal; 2020-03-04)
DX: C25.9 Malignant neoplasm of pancreas, unspecified (principal); D70.1 Agranulocytosis secondary to cancer chemotherapy; E11.9 Type 2 diabetes mellitus without complications; Z76.89 Persons encountering health services in other specified circumstances
CPT/HCPCS: 96372; Q5111

== ENCOUNTER 2020-03-17 05:03 | Day surgery (SDC) | payer OTHER, MEDICARE ==
[2020-03-14 10:40] VITALS: BMI 18.3
[2020-03-17] MEDS ORDERED: SODIUM CHLORIDE 250 ML IV ONE (09:00)
[2020-03-17] MEDS ORDERED: PALONOSETRON HCL 0.25 MG/5 ML VIAL IVPUSH ONE (09:30)
[2020-03-17] MEDS ORDERED: DEXAMETHASONE SODIUM PHOSPHATE 10 MG in SODIUM CHLORIDE 50 ML IVPB ONE (09:30)
[2020-03-17 09:52] LABS: POTASSIUM 4.8 mmol/L (3.5-5.1)
[2020-03-17 09:57] LABS: BASO % 0.4 % (0-2.0); CALCIUM 9.6 mg/dL (8.5-10.1); EOS % 0.3 % (0-4.5); HEMATOCRIT 35.3 % (35.4-49); HEMOGLOBIN 11.5 GM/dL (11.7-16.9); LYMPH % 9.9 % (8-40); MCH 31.7 pg (25.7-33.7); MCHC 32.5 g/dl (32.0-35.9); MEAN CELL VOLUME 97.5 fl (80-96); MEAN PLT VOLUME 11.2 fl (7.5-11.1); MONO % 6.4 % (3.8-10.2); PLATELET COUNT 203 K/MM3 (134-434); RBC 3.62 M/mm3 (4.00-5.60); WHITE BLOOD COUNT 26.2 K/mm3 (4.0-10.0)
[2020-03-17 09:58] LABS: BLOOD UREA NITROGEN 22.8 mg/dL (7-18)
[2020-03-17 09:59] LABS: MAGNESIUM 2.2 mg/dL (1.8-2.4)
[2020-03-17] MEDS ORDERED: SODIUM CHLORIDE IVPB ONE (10:00)
[2020-03-17] MEDS ORDERED: PACLITAXEL PROTEIN BOUND IVPB ONE (10:00)
[2020-03-17 10:01] LABS: BILIRUBIN,DIRECT 0.1 mg/dL (0.0-0.2); CREATININE 1.3 mg/dL (0.55-1.3)
[2020-03-17 10:02] LABS: BILIRUBIN,TOTAL 0.5 mg/dL (0.2-1); TOT PROT 7.1 g/dl (6.4-8.2)
[2020-03-17] MEDS ORDERED: SODIUM CHLORIDE IV ONE (10:30)
[2020-03-17] MEDS ORDERED: GEMCITABINE HCL IV ONE (10:30)
[2020-03-17 12:19] LABS: PLATELET ESTIMATE NORMAL
[2020-03-17 17:07] VITALS: BP 106/64; PULSE 93; TEMP 97.4
== END 2020-03-17 17:45 | disposition home or self-care (01) ==
LOC: JRADIR 05:03 → UNDOADMIN 06:24 → J7W 06:24 → JRADIR 15:30
PROVIDERS: ATTEND Internal Medicine Hematology & Oncology
PROC: 0JH63XZ Insertion of Tunneled Vascular Access Device into Chest Subcutaneous Tissue and Fascia, Percutaneous Approach (ICD-10-PCS; principal; 2020-03-17)
PROC: 3E04305 Introduction of Other Antineoplastic into Central Vein, Percutaneous Approach (ICD-10-PCS; 2020-03-17)
DX: Z51.11 Encounter for antineoplastic chemotherapy (principal); C25.9 Malignant neoplasm of pancreas, unspecified
CPT/HCPCS: 36561; 77001; 96361; 96375; 96413; 96417; C1788; 36415; 80048; 80076; 83735; 85025; J2469; J9264

== ENCOUNTER 2020-03-24 05:43 | Day surgery (SDC) | payer OTHER, MEDICARE ==
[2020-03-24] MEDS ORDERED: SODIUM CHLORIDE 250 ML IV ONE (09:00)
[2020-03-24] MEDS ORDERED: PALONOSETRON HCL 0.25 MG/5 ML VIAL IVPUSH ONE (09:30)
[2020-03-24] MEDS ORDERED: DEXAMETHASONE SODIUM PHOSPHATE 10 MG in SODIUM CHLORIDE 50 ML IVPB ONE (09:30)
[2020-03-24 09:35] LABS: BASO % 1.1 % (0-2.0); EOS % 0.7 % (0-4.5); HEMATOCRIT 31.1 % (35.4-49); HEMOGLOBIN 10.3 GM/dL (11.7-16.9); LYMPH % 24.3 % (8-40); MCH 32.2 pg (25.7-33.7); MEAN CELL VOLUME 97.3 fl (80-96); MEAN PLT VOLUME 11.4 fl (7.5-11.1); MONO % 8.1 % (3.8-10.2); NEUT % 65.8 % (42.8-82.8); PLATELET COUNT 340 K/MM3 (134-434); RDW 15.9 % (11.9-15.9); WHITE BLOOD COUNT 9.3 K/mm3 (4.0-10.0)
[2020-03-24 09:57] LABS: ALBUMIN 3.7 g/dl (3.4-5.0); BLOOD UREA NITROGEN 39.2 mg/dL (7-18); CALCIUM 9.2 mg/dL (8.5-10.1)
[2020-03-24 10:00] LABS: BILIRUBIN,DIRECT 0.2 mg/dL (0.0-0.2)
[2020-03-24] MEDS ORDERED: SODIUM CHLORIDE IVPB ONE (10:00)
[2020-03-24] MEDS ORDERED: PACLITAXEL PROTEIN BOUND IVPB ONE (10:00)
[2020-03-24 10:01] LABS: BILIRUBIN,TOTAL 0.9 mg/dL (0.2-1); CREATININE 1.3 mg/dL (0.55-1.3)
[2020-03-24 10:02] LABS: TOT PROT 6.8 g/dl (6.4-8.2)
[2020-03-24] MEDS ORDERED: SODIUM CHLORIDE IV ONE (10:30)
[2020-03-24] MEDS ORDERED: GEMCITABINE HCL IV ONE (10:30)
[2020-03-24 16:25] VITALS: BP 115/61; PULSE 59; TEMP 97.7
[2020-03-24] MEDS ORDERED: PORTA CATH FLUSH 10 ML IVPUSH ONE (16:31)
== END 2020-03-24 13:00 | disposition home or self-care (01) ==
LOC: JONCCHEMO 05:43
PROVIDERS: ATTEND Student in an Organized Health Care Education/Training Program
DX: Z51.11 Encounter for antineoplastic chemotherapy (principal); C25.9 Malignant neoplasm of pancreas, unspecified
CPT/HCPCS: 36415; 80048; 80076; 83735; 85025; 96361; 96375; 96413; 96417; J2469; J9264

== ENCOUNTER 2020-03-31 07:57 | Day surgery (SDC) | payer OTHER, MEDICARE ==
[~2020-03-31 07:57] MED LIST: SODIUM CHLORIDE 250 ML IV ONE
[2020-03-31] MEDS ORDERED: SODIUM CHLORIDE 250 ML IV ONE (09:00)
[2020-03-31] MEDS ORDERED: DEXAMETHASONE SODIUM PHOSPHATE 10 MG in SODIUM CHLORIDE 50 ML IVPB ONE (09:30)
[2020-03-31] MEDS ORDERED: PALONOSETRON HCL 0.25 MG/5 ML VIAL IVPUSH ONE (09:30)
[2020-03-31] MEDS ORDERED: SODIUM CHLORIDE IVPB ONE (10:00)
[2020-03-31] MEDS ORDERED: PACLITAXEL PROTEIN BOUND IVPB ONE (10:00)
[2020-03-31] MEDS ORDERED: GEMCITABINE HCL IV ONE (10:30)
[2020-03-31] MEDS ORDERED: SODIUM CHLORIDE IV ONE (10:30)
[2020-03-31 11:28] LABS: BASO % 1.4 % (0-2.0); EOS % 1.4 % (0-4.5); HEMOGLOBIN 9.7 GM/dL (11.7-16.9); LYMPH % 40.5 % (8-40); MCH 32.4 pg (25.7-33.7); MCHC 33.3 g/dl (32.0-35.9); MEAN CELL VOLUME 97.3 fl (80-96); MEAN PLT VOLUME 11.2 fl (7.5-11.1); MONO % 9.7 % (3.8-10.2); PLATELET COUNT 128 K/MM3 (134-434); RBC 2.98 M/mm3 (4.00-5.60); RDW 15.9 % (11.9-15.9); WHITE BLOOD COUNT 4.2 K/mm3 (4.0-10.0)
[2020-03-31 11:49] LABS: CALCIUM 8.9 mg/dL (8.5-10.1)
[2020-03-31 11:50] LABS: ALBUMIN 3.7 g/dl (3.4-5.0); BLOOD UREA NITROGEN 39.3 mg/dL (7-18); MAGNESIUM 1.9 mg/dL (1.8-2.4)
[2020-03-31 11:52] LABS: BILIRUBIN,DIRECT 0.2 mg/dL (0.0-0.2)
[2020-03-31 11:53] LABS: CREATININE 1.2 mg/dL (0.55-1.3)
[2020-03-31 11:54] LABS: BILIRUBIN,TOTAL 0.4 mg/dL (0.2-1); TOT PROT 6.7 g/dl (6.4-8.2)
[2020-03-31] MEDS ORDERED: INSULIN (NOVOLOG) ASPART 100 UNITS/ML 10ML VIAL SQ ONE (13:07)
[2020-03-31 16:40] VITALS: BP 101/59; PULSE 85; TEMP 97.8
[2020-03-31] MEDS ORDERED: PORTA CATH FLUSH 10 ML IVPUSH ONE (16:40)
== END 2020-03-31 13:35 | disposition home or self-care (01) ==
LOC: JONCCHEMO 07:57
PROVIDERS: ATTEND Internal Medicine Hematology & Oncology
DX: Z51.11 Encounter for antineoplastic chemotherapy (principal); C25.9 Malignant neoplasm of pancreas, unspecified
CPT/HCPCS: 36415; 80048; 80076; 83735; 85025; 96361; 96375; 96413; 96417; J2469; J9264

== ENCOUNTER 2020-04-01 09:08 | Day surgery (SDC) | payer OTHER, MEDICARE ==
[2020-04-01] MEDS ORDERED: PEGFILGRASTIM-CBQV (UDENYCA) 6 MG/0.6 ML SYRINGE SQ ONE (12:00)
[2020-04-01 16:36] VITALS: BP 114/64; PULSE 83; TEMP 97.6
== END 2020-04-01 12:30 | disposition home or self-care (01) ==
LOC: JONCCHEMO 09:08
PROVIDERS: ATTEND Internal Medicine Hematology & Oncology
PROC: 3E013GC Introduction of Other Therapeutic Substance into Subcutaneous Tissue, Percutaneous Approach (ICD-10-PCS; principal; 2020-04-01)
DX: C25.9 Malignant neoplasm of pancreas, unspecified (principal); Z76.89 Persons encountering health services in other specified circumstances
CPT/HCPCS: 96372; Q5111

== ENCOUNTER 2020-04-15 06:59 | Day surgery (SDC) | payer OTHER, MEDICARE ==
[2020-04-15] MEDS ORDERED: SODIUM CHLORIDE 250 ML IV ONE (09:00)
[2020-04-15] MEDS ORDERED: DEXAMETHASONE SODIUM PHOSPHATE 10 MG in SODIUM CHLORIDE 50 ML IVPB ONE (10:00)
[2020-04-15] MEDS ORDERED: PALONOSETRON HCL 0.25 MG/5 ML VIAL IVPUSH ONE (10:00)
[2020-04-15] MEDS ORDERED: PACLITAXEL PROTEIN BOUND IVPB ONE (10:30)
[2020-04-15] MEDS ORDERED: SODIUM CHLORIDE IVPB ONE (10:30)
[2020-04-15 10:56] LABS: BASO % 1.2 % (0-2.0); EOS % 0.9 % (0-4.5); HEMATOCRIT 34.9 % (35.4-49); HEMOGLOBIN 11.2 GM/dL (11.7-16.9); LYMPH % 9.3 % (8-40); MCH 32.3 pg (25.7-33.7); MCHC 32.1 g/dl (32.0-35.9); MEAN CELL VOLUME 100.6 fl (80-96); MEAN PLT VOLUME 11.1 fl (7.5-11.1); MONO % 6.9 % (3.8-10.2); NEUT % 81.7 % (42.8-82.8); PLATELET COUNT 355 K/MM3 (134-434); RBC 3.47 M/mm3 (4.00-5.60); RDW 20.3 % (11.9-15.9)
[2020-04-15] MEDS ORDERED: GEMCITABINE HCL IV ONE (11:00)
[2020-04-15] MEDS ORDERED: SODIUM CHLORIDE IV ONE (11:00)
[2020-04-15 11:07] LABS: WHITE BLOOD COUNT 30.2 K/mm3 (4.0-10.0)
[2020-04-15 11:24] LABS: POTASSIUM 5.5 mmol/L (3.5-5.1)
[2020-04-15 11:27] LABS: CALCIUM 9.7 mg/dL (8.5-10.1); MAGNESIUM 2.1 mg/dL (1.8-2.4)
[2020-04-15 11:28] LABS: BLOOD UREA NITROGEN 38.5 mg/dL (7-18)
[2020-04-15 11:30] LABS: BILIRUBIN,DIRECT 0.2 mg/dL (0.0-0.2); CREATININE 1.5 mg/dL (0.55-1.3)
[2020-04-15 11:32] LABS: TOT PROT 7.2 g/dl (6.4-8.2)
[2020-04-15 11:33] LABS: BILIRUBIN,TOTAL 0.4 mg/dL (0.2-1)
[2020-04-15] MEDS ORDERED: SODIUM POLYSTYRENE SULFONATE 15 GM/60 ML BOTTLE PO ONE (12:02)
[2020-04-15] MEDS ORDERED: SODIUM CHLORIDE 0.9% 500 ML INFUS.BAG IV ONE (12:02)
[2020-04-15 14:17] LABS: ANISOCYTOSIS 2+; MACROCYTOSIS 1+; PLATELET ESTIMATE NORMAL
[2020-04-15 15:59] VITALS: BP 107/63; PULSE 93; TEMP 97.7
[2020-04-15] MEDS ORDERED: PORTA CATH FLUSH 10 ML IVPUSH ONE (15:59)
== END 2020-04-15 18:51 | disposition home or self-care (01) ==
LOC: JONCCHEMO 06:59
PROVIDERS: ATTEND Internal Medicine Hematology & Oncology
DX: Z51.11 Encounter for antineoplastic chemotherapy (principal); C25.9 Malignant neoplasm of pancreas, unspecified
CPT/HCPCS: 36415; 80048; 80076; 83735; 85025; 86301; 96361; 96375; 96413; 96417; J2469; J9264

== ENCOUNTER 2020-04-21 07:32 | Day surgery (SDC) | payer OTHER, MEDICARE ==
[2020-04-21] MEDS ORDERED: SODIUM CHLORIDE 250 ML IV ONE (09:00)
[2020-04-21 09:39] LABS: BASO % 1.1 % (0-2.0); EOS % 0.7 % (0-4.5); HEMATOCRIT 29.5 % (35.4-49); HEMOGLOBIN 9.6 GM/dL (11.7-16.9); LYMPH % 20.4 % (8-40); MCH 32.6 pg (25.7-33.7); MCHC 32.7 g/dl (32.0-35.9); MEAN CELL VOLUME 99.7 fl (80-96); MEAN PLT VOLUME 11.3 fl (7.5-11.1); MONO % 3.2 % (3.8-10.2); NEUT % 74.6 % (42.8-82.8); PLATELET COUNT 308 K/MM3 (134-434); RBC 2.96 M/mm3 (4.00-5.60); RDW 18.6 % (11.9-15.9)
[2020-04-21] MEDS ORDERED: DEXAMETHASONE SODIUM PHOSPHATE 10 MG in SODIUM CHLORIDE 50 ML IVPB ONE (10:00)
[2020-04-21] MEDS ORDERED: PALONOSETRON HCL 0.25 MG/5 ML VIAL IVPUSH ONE (10:00)
[2020-04-21 10:12] LABS: POTASSIUM 4.3 mmol/L (3.5-5.1)
[2020-04-21 10:16] LABS: BLOOD UREA NITROGEN 37.4 mg/dL (7-18)
[2020-04-21 10:19] LABS: BILIRUBIN,DIRECT 0.2 mg/dL (0.0-0.2); CREATININE 1.2 mg/dL (0.55-1.3)
[2020-04-21 10:20] LABS: BILIRUBIN,TOTAL 0.7 mg/dL (0.2-1)
[2020-04-21 10:21] LABS: TOT PROT 6.5 g/dl (6.4-8.2)
[2020-04-21] MEDS ORDERED: SODIUM CHLORIDE IVPB ONE (10:30)
[2020-04-21] MEDS ORDERED: PACLITAXEL PROTEIN BOUND IVPB ONE (10:30)
[2020-04-21 10:31] LABS: ALBUMIN 3.6 g/dl (3.4-5.0); CALCIUM 8.9 mg/dL (8.5-10.1)
[2020-04-21] MEDS ORDERED: SODIUM CHLORIDE IV ONE (11:00)
[2020-04-21] MEDS ORDERED: GEMCITABINE HCL IV ONE (11:00)
[2020-04-21 15:54] VITALS: TEMP 97.5
[2020-04-21 15:55] VITALS: BP 123/69; PULSE 78
== END 2020-04-21 13:00 | disposition home or self-care (01) ==
LOC: JONCCHEMO 07:32
PROVIDERS: ATTEND Internal Medicine Hematology & Oncology
DX: Z51.11 Encounter for antineoplastic chemotherapy (principal); C25.9 Malignant neoplasm of pancreas, unspecified
CPT/HCPCS: 36415; 80048; 80076; 83735; 85025; 96361; 96375; 96413; 96417; J2469; J9264

== ENCOUNTER 2020-05-01 06:57 | Day surgery (SDC) | payer OTHER, MEDICARE ==
[~2020-05-01 06:57] MED LIST changes: +DEXAMETHASONE SODIUM PHOSPHATE 10 MG in SODIUM CHLORIDE 50 ML IVPB ONE; +GEMCITABINE HCL IV ONE; +PACLITAXEL PROTEIN BOUND IVPB ONE; +PALONOSETRON HCL 0.25 MG/5 ML VIAL IVPUSH ONE; +SODIUM CHLORIDE IV ONE; +SODIUM CHLORIDE IVPB ONE
[2020-05-01] MEDS ORDERED: SODIUM CHLORIDE 250 ML IV ONE (10:00)
[2020-05-01] MEDS ORDERED: PALONOSETRON HCL 0.25 MG/5 ML VIAL IVPUSH ONE (10:00)
[2020-05-01] MEDS ORDERED: DEXAMETHASONE SODIUM PHOSPHATE 10 MG in SODIUM CHLORIDE 50 ML IVPB ONE (10:00)
[2020-05-01 10:19] LABS: BASO % 0.4 % (0-2.0); EOS % 1.5 % (0-4.5); HEMATOCRIT 28.6 % (35.4-49); HEMOGLOBIN 9.5 GM/dL (11.7-16.9); MCH 33.5 pg (25.7-33.7); MCHC 33.3 g/dl (32.0-35.9); MEAN CELL VOLUME 100.5 fl (80-96); MEAN PLT VOLUME 11.1 fl (7.5-11.1); MONO % 14.7 % (3.8-10.2); NEUT % 56.4 % (42.8-82.8); PLATELET COUNT 115 K/MM3 (134-434); RBC 2.85 M/mm3 (4.00-5.60); RDW 17.6 % (11.9-15.9); WHITE BLOOD COUNT 6.1 K/mm3 (4.0-10.0)
[2020-05-01] MEDS ORDERED: SODIUM CHLORIDE IVPB ONE (10:30)
[2020-05-01] MEDS ORDERED: PACLITAXEL PROTEIN BOUND IVPB ONE (10:30)
[2020-05-01 10:46] LABS: POTASSIUM 5.4 mmol/L (3.5-5.1)
[2020-05-01 10:48] LABS: ALBUMIN 3.8 g/dl (3.4-5.0); BLOOD UREA NITROGEN 33.7 mg/dL (7-18); CALCIUM 9.2 mg/dL (8.5-10.1); MAGNESIUM 2.1 mg/dL (1.8-2.4)
[2020-05-01 10:53] LABS: BILIRUBIN,DIRECT 0.2 mg/dL (0.0-0.2); BILIRUBIN,TOTAL 0.5 mg/dL (0.2-1); CREATININE 1.5 mg/dL (0.55-1.3); TOT PROT 6.8 g/dl (6.4-8.2)
[2020-05-01] MEDS ORDERED: SODIUM CHLORIDE IV ONE (11:00)
[2020-05-01] MEDS ORDERED: GEMCITABINE HCL IV ONE (11:00)
[2020-05-01] MEDS ORDERED: SODIUM CHLORIDE 0.9% 500 ML INFUS.BAG IV ONE (11:16)
[2020-05-01 17:03] VITALS: BP 110/64; PULSE 84; TEMP 97.7
[2020-05-01] MEDS ORDERED: PORTA CATH FLUSH 10 ML IVPUSH ONE (17:03)
== END 2020-05-01 14:30 | disposition home or self-care (01) ==
LOC: JONCCHEMO 06:57
PROVIDERS: ATTEND Internal Medicine Hematology & Oncology
DX: Z51.11 Encounter for antineoplastic chemotherapy (principal); C25.1 Malignant neoplasm of body of pancreas
CPT/HCPCS: 36415; 80048; 80076; 83735; 85025; 96361; 96375; 96413; 96417; J2469; J9264

== ENCOUNTER 2020-05-02 06:53 | Day surgery (SDC) | payer OTHER, MEDICARE ==
[2020-05-02 09:54] VITALS: BP 107/55; PULSE 76; TEMP 97.5
[2020-05-02] MEDS ORDERED: PEGFILGRASTIM-CBQV (UDENYCA) 6 MG/0.6 ML SYRINGE SQ ONE (10:00)
== END 2020-05-02 09:10 | disposition home or self-care (01) ==
LOC: JONCCHEMO 06:53
PROVIDERS: ATTEND Internal Medicine Hematology & Oncology
PROC: 3E013GC Introduction of Other Therapeutic Substance into Subcutaneous Tissue, Percutaneous Approach (ICD-10-PCS; principal; 2020-05-02)
DX: C25.1 Malignant neoplasm of body of pancreas (principal); Z76.89 Persons encountering health services in other specified circumstances
CPT/HCPCS: 96372; Q5111

== ENCOUNTER 2020-05-03 10:35 | Emergency (ER) | payer OTHER, MEDICARE ==
[2020-05-03 10:46] VITALS: TEMP 97.6; BMI 19.3
[2020-05-03 13:37] LABS: HEMATOCRIT 29.1 % (35.4-49); HEMOGLOBIN 9.5 GM/dL (11.7-16.9); MCH 32.7 pg (25.7-33.7); MCHC 32.4 g/dl (32.0-35.9); MEAN CELL VOLUME 100.7 fl (80-96); MEAN PLT VOLUME 12.7 fl (7.5-11.1); PLATELET COUNT 126 K/MM3 (134-434); RDW 17.8 % (11.9-15.9)
[2020-05-03 13:52] LABS: WHITE BLOOD COUNT 40.6 K/mm3 (4.0-10.0)
[2020-05-03 13:59] LABS: POTASSIUM 5.2 mmol/L (3.5-5.1)
[2020-05-03 14:00] LABS: CALCIUM 9.2 mg/dL (8.5-10.1)
[2020-05-03 14:01] LABS: ALBUMIN 3.7 g/dl (3.4-5.0)
[2020-05-03 14:04] LABS: CREATININE 1.3 mg/dL (0.55-1.3)
[2020-05-03 14:06] LABS: BILIRUBIN,TOTAL 0.8 mg/dL (0.2-1); TOT PROT 6.7 g/dl (6.4-8.2)
[2020-05-03 14:29] LABS: BASO % 0.1 % (0-2.0); EOS % 0.3 % (0-4.5); HEMATOCRIT 29.7 % (35.4-49); HEMOGLOBIN 9.7 GM/dL (11.7-16.9); LYMPH % 4.3 % (8-40); MCH 32.9 pg (25.7-33.7); MCHC 32.8 g/dl (32.0-35.9); MEAN CELL VOLUME 100.3 fl (80-96); MEAN PLT VOLUME 11.8 fl (7.5-11.1); MONO % 1.5 % (3.8-10.2); NEUT % 93.8 % (42.8-82.8); PLATELET COUNT 122 K/MM3 (134-434); RBC 2.96 M/mm3 (4.00-5.60); RDW 17.8 % (11.9-15.9)
[2020-05-03 14:30] LABS: WHITE BLOOD COUNT 41.9 K/mm3 (4.0-10.0)
[2020-05-03 14:54] LABS: ANISOCYTOSIS 1+; MACROCYTOSIS 1+
[2020-05-03 15:04] VITALS: BP 118/67; PULSE 103
== END 2020-05-03 15:10 | disposition home or self-care (01) ==
LOC: JER 10:35
DX: K94.03 Colostomy malfunction (principal)
CPT/HCPCS: 36415; 80053; 82962; 85025; 85027; 99283-25

== ENCOUNTER 2020-05-13 06:30 | Day surgery (SDC) | payer OTHER, MEDICARE ==
[2020-05-13] MEDS ORDERED: SODIUM CHLORIDE 250 ML IV ONE (09:00)
[2020-05-13] MEDS ORDERED: PALONOSETRON HCL 0.25 MG/5 ML VIAL IVPUSH ONE (09:30)
[2020-05-13] MEDS ORDERED: DEXAMETHASONE SODIUM PHOSPHATE 10 MG in SODIUM CHLORIDE 50 ML IVPB ONE (09:30)
[2020-05-13] MEDS ORDERED: PACLITAXEL PROTEIN BOUND IVPB ONE (10:00)
[2020-05-13] MEDS ORDERED: SODIUM CHLORIDE IVPB ONE (10:00)
[2020-05-13] MEDS ORDERED: GEMCITABINE HCL IV ONE (10:30)
[2020-05-13] MEDS ORDERED: SODIUM CHLORIDE IV ONE (10:30)
[2020-05-13 11:30] LABS: BASO % 0.2 % (0-2.0); EOS % 1.3 % (0-4.5); HEMATOCRIT 30.2 % (35.4-49); HEMOGLOBIN 9.6 GM/dL (11.7-16.9); MCH 32.1 pg (25.7-33.7); MCHC 31.8 g/dl (32.0-35.9); MEAN PLT VOLUME 10.7 fl (7.5-11.1); MONO % 5.4 % (3.8-10.2); NEUT % 87.1 % (42.8-82.8); PLATELET COUNT 212 K/MM3 (134-434); RBC 2.99 M/mm3 (4.00-5.60); RDW 18.2 % (11.9-15.9)
[2020-05-13 12:04] LABS: WHITE BLOOD COUNT 45.4 K/mm3 (4.0-10.0)
[2020-05-13 12:11] LABS: POTASSIUM 5.1 mmol/L (3.5-5.1)
[2020-05-13 12:13] LABS: ALBUMIN 3.6 g/dl (3.4-5.0); BLOOD UREA NITROGEN 37.9 mg/dL (7-18); MAGNESIUM 2.1 mg/dL (1.8-2.4)
[2020-05-13 12:16] LABS: BILIRUBIN,DIRECT 0.2 mg/dL (0.0-0.2); CREATININE 1.5 mg/dL (0.55-1.3)
[2020-05-13 12:18] LABS: BILIRUBIN,TOTAL 0.4 mg/dL (0.2-1)
[2020-05-13] MEDS ORDERED: SODIUM CHLORIDE 0.9% 500 ML INFUS.BAG IV ONE (12:25)
[2020-05-13 13:30] LABS: ANISOCYTOSIS 1+; MACROCYTOSIS 2+; PLATELET ESTIMATE NORMAL
[2020-05-13 17:14] VITALS: TEMP 98.5
[2020-05-13 17:16] VITALS: BP 109/54; PULSE 81
== END 2020-05-13 16:25 | disposition home or self-care (01) ==
LOC: JONCCHEMO 06:30
PROVIDERS: ATTEND Internal Medicine Hematology & Oncology
DX: Z51.11 Encounter for antineoplastic chemotherapy (principal); C25.1 Malignant neoplasm of body of pancreas
CPT/HCPCS: 36415; 80048; 80076; 83735; 84153; 85025; 96361; 96375; 96413; 96417; J2469; J9264

== ENCOUNTER 2020-05-19 07:43 | Day surgery (SDC) | payer OTHER, MEDICARE ==
[2020-05-19] MEDS ORDERED: SODIUM CHLORIDE 250 ML IV ONE ×2 (09:00→11:00)
[2020-05-19] MEDS ORDERED: PALONOSETRON HCL 0.25 MG/5 ML VIAL IVPUSH ONE (09:30)
[2020-05-19] MEDS ORDERED: DEXAMETHASONE SODIUM PHOSPHATE 10 MG in SODIUM CHLORIDE 50 ML IVPB ONE (09:30)
[2020-05-19] MEDS ORDERED: PACLITAXEL PROTEIN BOUND IVPB ONE (10:00)
[2020-05-19] MEDS ORDERED: SODIUM CHLORIDE IVPB ONE (10:00)
[2020-05-19] MEDS ORDERED: SODIUM CHLORIDE IV ONE (10:30)
[2020-05-19] MEDS ORDERED: GEMCITABINE HCL IV ONE (10:30)
[2020-05-19 12:29] LABS: EOS % 0.5 % (0-4.5); HEMATOCRIT 27.3 % (35.4-49); HEMOGLOBIN 9.3 GM/dL (11.7-16.9); LYMPH % 8.8 % (8-40); MCH 33.5 pg (25.7-33.7); MEAN CELL VOLUME 98.5 fl (80-96); MONO % 5.2 % (3.8-10.2); NEUT % 84.5 % (42.8-82.8); PLATELET COUNT 190 K/MM3 (134-434); RBC 2.77 M/mm3 (4.00-5.60); RDW 17.3 % (11.9-15.9); WHITE BLOOD COUNT 9.2 K/mm3 (4.0-10.0)
[2020-05-19 12:46] LABS: POTASSIUM 4.5 mmol/L (3.5-5.1)
[2020-05-19 12:49] LABS: ALBUMIN 3.5 g/dl (3.4-5.0); BLOOD UREA NITROGEN 37.3 mg/dL (7-18); MAGNESIUM 2.2 mg/dL (1.8-2.4)
[2020-05-19 12:51] LABS: BILIRUBIN,DIRECT 0.2 mg/dL (0.0-0.2); CREATININE 1.1 mg/dL (0.55-1.3)
[2020-05-19 12:54] LABS: TOT PROT 6.5 g/dl (6.4-8.2)
[2020-05-19 12:55] LABS: BILIRUBIN,TOTAL 0.7 mg/dL (0.2-1)
[2020-05-19 16:54] VITALS: TEMP 97.9
[2020-05-19 17:09] VITALS: BP 115/75; PULSE 78
[2020-05-19] MEDS ORDERED: PORTA CATH FLUSH 10 ML IVPUSH ONE (17:09)
== END 2020-05-19 16:45 | disposition home or self-care (01) ==
LOC: JONCCHEMO 07:43
PROVIDERS: ATTEND Internal Medicine Hematology & Oncology
DX: Z51.11 Encounter for antineoplastic chemotherapy (principal); C25.1 Malignant neoplasm of body of pancreas
CPT/HCPCS: 36415; 80048; 80076; 83735; 85025; 96361; 96375; 96413; 96417; J2469; J9264

== ENCOUNTER 2020-05-26 06:52 | Day surgery (SDC) | payer OTHER, MEDICARE ==
[2020-05-26] MEDS ORDERED: SODIUM CHLORIDE 250 ML IV ONE ×2 (09:00→11:00)
[2020-05-26] MEDS ORDERED: DEXAMETHASONE SODIUM PHOSPHATE 6 MG in SODIUM CHLORIDE 50 ML IVPB ONE (09:30)
[2020-05-26] MEDS ORDERED: PALONOSETRON HCL 0.25 MG/5 ML VIAL IVPUSH ONE (09:30)
[2020-05-26] MEDS ORDERED: PACLITAXEL PROTEIN BOUND IVPB ONE (10:00)
[2020-05-26] MEDS ORDERED: SODIUM CHLORIDE IVPB ONE (10:00)
[2020-05-26] MEDS ORDERED: GEMCITABINE HCL 1,197 MG in SODIUM CHLORIDE 250 ML IV ONE (10:30)
[2020-05-26 10:39] LABS: BASO % 1.2 % (0-2.0); HEMATOCRIT 27.8 % (35.4-49); HEMOGLOBIN 9.3 GM/dL (11.7-16.9); LYMPH % 43.7 % (8-40); MCH 33.5 pg (25.7-33.7); MCHC 33.4 g/dl (32.0-35.9); MEAN CELL VOLUME 100.5 fl (80-96); MEAN PLT VOLUME 10.1 fl (7.5-11.1); MONO % 9.9 % (3.8-10.2); NEUT % 40.2 % (42.8-82.8); PLATELET COUNT 104 K/MM3 (134-434); RBC 2.77 M/mm3 (4.00-5.60); RDW 17.3 % (11.9-15.9); WHITE BLOOD COUNT 3.6 K/mm3 (4.0-10.0)
[2020-05-26 11:00] LABS: ALBUMIN 3.6 g/dl (3.4-5.0); CALCIUM 9.3 mg/dL (8.5-10.1); MAGNESIUM 2.3 mg/dL (1.8-2.4)
[2020-05-26 11:03] LABS: BILIRUBIN,DIRECT 0.2 mg/dL (0.0-0.2); CREATININE 1.4 mg/dL (0.55-1.3)
[2020-05-26 11:05] LABS: BILIRUBIN,TOTAL 0.5 mg/dL (0.2-1); TOT PROT 6.6 g/dl (6.4-8.2)
[2020-05-26 11:25] LABS: POTASSIUM 6.4 mmol/L (3.5-5.1)
[2020-05-26] MEDS ORDERED: SODIUM POLYSTYRENE SULFONATE 15 GM/60 ML BOTTLE PO ONE (12:30)
[2020-05-26 17:47] VITALS: TEMP 97.8
[2020-05-26 17:48] VITALS: BP 105/62; PULSE 87
[2020-05-26] MEDS ORDERED: PORTA CATH FLUSH 10 ML IVPUSH ONE (18:05)
== END 2020-05-26 15:45 | disposition home or self-care (01) ==
LOC: JONCCHEMO 06:52
PROVIDERS: ATTEND Internal Medicine Hematology & Oncology
DX: Z51.11 Encounter for antineoplastic chemotherapy (principal); C25.1 Malignant neoplasm of body of pancreas
CPT/HCPCS: 36415; 80048; 80076; 83735; 85025; 96361; 96375; 96413; 96417; J2469; J9264

== ENCOUNTER 2020-05-27 07:21 | Day surgery (SDC) | payer OTHER, MEDICARE ==
[2020-05-27] MEDS ORDERED: SODIUM CHLORIDE 250 ML IV ONE (09:00)
[2020-05-27] MEDS ORDERED: PEGFILGRASTIM-CBQV (UDENYCA) 6 MG/0.6 ML SYRINGE SQ ONE (10:00)
[2020-05-27 14:29] LABS: POTASSIUM 4.1 mmol/L (3.5-5.1)
[2020-05-27 14:30] LABS: CALCIUM 8.5 mg/dL (8.5-10.1)
[2020-05-27 14:31] LABS: BLOOD UREA NITROGEN 40.5 mg/dL (7-18)
[2020-05-27 14:34] LABS: CREATININE 1.2 mg/dL (0.55-1.3)
[2020-05-27 15:30] VITALS: TEMP 97.9
[2020-05-27 15:32] VITALS: BP 110/69; PULSE 88
== END 2020-05-27 14:30 | disposition home or self-care (01) ==
LOC: JONCCHEMO 07:21
PROVIDERS: ATTEND Internal Medicine Hematology & Oncology
PROC: 3E013GC Introduction of Other Therapeutic Substance into Subcutaneous Tissue, Percutaneous Approach (ICD-10-PCS; principal; 2020-05-27)
DX: C25.1 Malignant neoplasm of body of pancreas (principal); Z76.89 Persons encountering health services in other specified circumstances
CPT/HCPCS: 36415; 80048; 96360; 96372; Q5111

== ENCOUNTER 2020-06-09 09:36 | Day surgery (SDC) | payer OTHER, MEDICARE ==
[~2020-06-09 09:36] MED LIST changes: -DEXAMETHASONE SODIUM PHOSPHATE 10 MG in SODIUM CHLORIDE 50 ML IVPB ONE; -GEMCITABINE HCL IV ONE; -PACLITAXEL PROTEIN BOUND IVPB ONE; -PALONOSETRON HCL 0.25 MG/5 ML VIAL IVPUSH ONE; -SODIUM CHLORIDE IV ONE; -SODIUM CHLORIDE IVPB ONE
[2020-06-09] MEDS ORDERED: PALONOSETRON HCL 0.25 MG/5 ML VIAL IVPUSH ONE (10:00)
[2020-06-09] MEDS ORDERED: DEXAMETHASONE SODIUM PHOSPHATE 6 MG in SODIUM CHLORIDE 50 ML IVPB ONE (10:00)
[2020-06-09] MEDS ORDERED: SODIUM CHLORIDE IVPB ONE (10:30)
[2020-06-09] MEDS ORDERED: PACLITAXEL PROTEIN BOUND IVPB ONE (10:30)
[2020-06-09] MEDS ORDERED: GEMCITABINE HCL 1,197 MG in SODIUM CHLORIDE 250 ML IV ONE (11:00)
[2020-06-09] MEDS ORDERED: SODIUM CHLORIDE 250 ML IV ONE (11:30)
[2020-06-09 11:32] LABS: BASO % 0.4 % (0-2.0); EOS % 0.8 % (0-4.5); HEMATOCRIT 31.3 % (35.4-49); LYMPH % 7.7 % (8-40); MCH 32.6 pg (25.7-33.7); MCHC 31.9 g/dl (32.0-35.9); MEAN CELL VOLUME 102.5 fl (80-96); MONO % 7.1 % (3.8-10.2); PLATELET COUNT 319 K/MM3 (134-434); RBC 3.06 M/mm3 (4.00-5.60); RDW 18.5 % (11.9-15.9)
[2020-06-09 11:35] LABS: WHITE BLOOD COUNT 34.5 K/mm3 (4.0-10.0)
[2020-06-09 11:51] LABS: CALCIUM 9.5 mg/dL (8.5-10.1)
[2020-06-09 11:52] LABS: ALBUMIN 3.8 g/dl (3.4-5.0); BLOOD UREA NITROGEN 25.2 mg/dL (7-18); MAGNESIUM 2.4 mg/dL (1.8-2.4)
[2020-06-09 11:55] LABS: CREATININE 1.4 mg/dL (0.55-1.3)
[2020-06-09 11:56] LABS: BILIRUBIN,TOTAL 0.5 mg/dL (0.2-1); TOT PROT 7.3 g/dl (6.4-8.2)
[2020-06-09 11:59] LABS: ALBUMIN 3.8 g/dl (3.4-5.0)
[2020-06-09 12:03] LABS: BILIRUBIN,DIRECT 0.2 mg/dL (0.0-0.2)
[2020-06-09 12:04] LABS: BILIRUBIN,TOTAL 0.4 mg/dL (0.2-1); TOT PROT 7.3 g/dl (6.4-8.2)
[2020-06-09] MEDS ORDERED: PORTA CATH FLUSH 10 ML IVPUSH ONE (12:57)
[2020-06-09 13:37] LABS: ANISOCYTOSIS 1+; MACROCYTOSIS 1+; PLATELET ESTIMATE NORMAL
[2020-06-09 14:59] VITALS: BP 119/54; PULSE 75; TEMP 98
== END 2020-06-09 14:56 | disposition home or self-care (01) ==
LOC: JONCCHEMO 09:36
PROVIDERS: ATTEND Internal Medicine Hematology & Oncology
DX: Z51.11 Encounter for antineoplastic chemotherapy (principal); C25.1 Malignant neoplasm of body of pancreas
CPT/HCPCS: 36415; 80053; 80076; 83735; 85025; 96361; 96375; 96413; 96417; J2469; J9264

== ENCOUNTER 2020-06-16 06:19 | Day surgery (SDC) | payer OTHER, MEDICARE ==
[2020-06-16] MEDS ORDERED: SODIUM CHLORIDE 250 ML IV ONE (09:00)
[2020-06-16] MEDS ORDERED: DEXAMETHASONE INJECTION 6 MG in SODIUM CHLORIDE 50 ML IVPB ONE (10:00)
[2020-06-16] MEDS ORDERED: PALONOSETRON HCL 0.25 MG/5 ML VIAL IVPUSH ONE (10:00)
[2020-06-16 10:02] LABS: BASO % 2.5 % (0-2.0); EOS % 1.5 % (0-4.5); HEMATOCRIT 28.9 % (35.4-49); HEMOGLOBIN 9.4 GM/dL (11.7-16.9); LYMPH % 28.1 % (8-40); MCHC 32.6 g/dl (32.0-35.9); MEAN CELL VOLUME 101.2 fl (80-96); MEAN PLT VOLUME 11.2 fl (7.5-11.1); MONO % 14.1 % (3.8-10.2); NEUT % 53.8 % (42.8-82.8); PLATELET COUNT 298 K/MM3 (134-434); RBC 2.86 M/mm3 (4.00-5.60); RDW 17.1 % (11.9-15.9)
[2020-06-16 10:28] LABS: POTASSIUM 5.2 mmol/L (3.5-5.1)
[2020-06-16 10:30] LABS: CALCIUM 9.3 mg/dL (8.5-10.1)
[2020-06-16] MEDS ORDERED: PACLITAXEL PROTEIN BOUND IVPB ONE (10:30)
[2020-06-16] MEDS ORDERED: SODIUM CHLORIDE IVPB ONE (10:30)
[2020-06-16 10:31] LABS: ALBUMIN 3.7 g/dl (3.4-5.0); LIPASE 79 U/L (73-393); MAGNESIUM 2.2 mg/dL (1.8-2.4)
[2020-06-16 10:34] LABS: BILIRUBIN,DIRECT 0.2 mg/dL (0.0-0.2); CREATININE 1.2 mg/dL (0.55-1.3)
[2020-06-16 10:36] LABS: BILIRUBIN,TOTAL 0.7 mg/dL (0.2-1); TOT PROT 6.9 g/dl (6.4-8.2)
[2020-06-16 10:37] LABS: AMYLASE 85 U/L (25-115)
[2020-06-16] MEDS ORDERED: GEMCITABINE HCL 1,197 MG in SODIUM CHLORIDE 250 ML IV ONE (11:00)
[2020-06-16] MEDS ORDERED: SODIUM CHLORIDE 250 ML IVPB ONE (11:30)
[2020-06-16 14:15] VITALS: TEMP 97.6
[2020-06-16 14:24] VITALS: BP 107/54; PULSE 84
[2020-06-16] MEDS ORDERED: PORTA CATH FLUSH 10 ML IVPUSH ONE (14:30)
== END 2020-06-16 14:00 | disposition home or self-care (01) ==
LOC: JONCCHEMO 06:19
PROVIDERS: ATTEND Internal Medicine Hematology & Oncology
DX: Z51.11 Encounter for antineoplastic chemotherapy (principal); C25.1 Malignant neoplasm of body of pancreas
CPT/HCPCS: 36415; 80048; 80076; 82150; 82962; 83690; 83735; 85025; 96361; 96375; 96413; 96417; J1100; J2469; J9264

== ENCOUNTER 2020-06-23 07:29 | Day surgery (SDC) | payer OTHER, MEDICARE ==
[2020-06-23] MEDS ORDERED: SODIUM CHLORIDE 250 ML IV ONE ×2 (09:00→11:30)
[2020-06-23] MEDS ORDERED: DEXAMETHASONE SODIUM PHOSPHATE 4 MG in SODIUM CHLORIDE 50 ML IVPB ONE (10:00)
[2020-06-23] MEDS ORDERED: PALONOSETRON HCL 0.25 MG/5 ML VIAL IVPUSH ONE (10:00)
[2020-06-23] MEDS ORDERED: PACLITAXEL PROTEIN BOUND IVPB ONE (10:30)
[2020-06-23] MEDS ORDERED: SODIUM CHLORIDE IVPB ONE (10:30)
[2020-06-23] MEDS ORDERED: GEMCITABINE HCL 1,197 MG in SODIUM CHLORIDE 250 ML IV ONE (11:00)
[2020-06-23 11:14] LABS: BASO % 2.2 % (0-2.0); EOS % 6.5 % (0-4.5); HEMATOCRIT 27.3 % (35.4-49); HEMOGLOBIN 9.1 GM/dL (11.7-16.9); LYMPH % 39.2 % (8-40); MCHC 33.4 g/dl (32.0-35.9); MEAN CELL VOLUME 101.8 fl (80-96); MEAN PLT VOLUME 11.7 fl (7.5-11.1); MONO % 12.9 % (3.8-10.2); NEUT % 39.2 % (42.8-82.8); PLATELET COUNT 99 K/MM3 (134-434); RBC 2.69 M/mm3 (4.00-5.60); RDW 16.8 % (11.9-15.9); WHITE BLOOD COUNT 3.2 K/mm3 (4.0-10.0)
[2020-06-23 11:30] LABS: POTASSIUM 5.4 mmol/L (3.5-5.1)
[2020-06-23 11:32] LABS: ALBUMIN 3.7 g/dl (3.4-5.0); CALCIUM 9.5 mg/dL (8.5-10.1)
[2020-06-23 11:33] LABS: BLOOD UREA NITROGEN 32.1 mg/dL (7-18); MAGNESIUM 2.5 mg/dL (1.8-2.4)
[2020-06-23 11:35] LABS: BILIRUBIN,DIRECT 0.2 mg/dL (0.0-0.2)
[2020-06-23 11:36] LABS: CREATININE 1.2 mg/dL (0.55-1.3)
[2020-06-23 11:37] LABS: BILIRUBIN,TOTAL 0.4 mg/dL (0.2-1); TOT PROT 6.8 g/dl (6.4-8.2)
[2020-06-23] MEDS ORDERED: PORTA CATH FLUSH 10 ML IVPUSH ONE (15:10)
[2020-06-23 15:11] VITALS: TEMP 97.4
[2020-06-23 16:15] VITALS: BP 118/62; PULSE 87
== END 2020-06-23 15:40 | disposition home or self-care (01) ==
LOC: JONCCHEMO 07:29
PROVIDERS: ATTEND Internal Medicine Hematology & Oncology
DX: Z51.11 Encounter for antineoplastic chemotherapy (principal); C25.1 Malignant neoplasm of body of pancreas
CPT/HCPCS: 36415; 80048; 80076; 83735; 85025; 96361; 96375; 96413; 96417; J2469; J9264

== ENCOUNTER 2020-06-24 06:41 | Day surgery (SDC) | payer OTHER, MEDICARE ==
[2020-06-24] MEDS ORDERED: PEGFILGRASTIM-CBQV (UDENYCA) 6 MG/0.6 ML SYRINGE SQ ONE (10:00)
[2020-06-24] MEDS ORDERED: SODIUM CHLORIDE 250 ML IVPB ONE (10:00)
[2020-06-24 15:46] VITALS: TEMP 98.1
[2020-06-24 15:47] VITALS: BP 119/60; PULSE 87
== END 2020-06-24 14:40 | disposition home or self-care (01) ==
LOC: JONCCHEMO 06:41
PROVIDERS: ATTEND Internal Medicine Hematology & Oncology
PROC: 3E013GC Introduction of Other Therapeutic Substance into Subcutaneous Tissue, Percutaneous Approach (ICD-10-PCS; principal; 2020-06-24)
DX: C25.1 Malignant neoplasm of body of pancreas (principal); Z76.89 Persons encountering health services in other specified circumstances
CPT/HCPCS: 96360; 96372; Q5111

== ENCOUNTER 2020-07-07 06:34 | Day surgery (SDC) | payer OTHER, MEDICARE ==
[2020-07-07] MEDS ORDERED: SODIUM CHLORIDE 250 ML IV ONE ×2 (09:00→11:00)
[2020-07-07] MEDS ORDERED: PALONOSETRON HCL 0.25 MG/5 ML VIAL IVPUSH ONE (09:30)
[2020-07-07] MEDS ORDERED: DEXAMETHASONE SODIUM PHOSPHATE 4 MG in SODIUM CHLORIDE 50 ML IVPB ONE (09:30)
[2020-07-07] MEDS ORDERED: PACLITAXEL PROTEIN BOUND IVPB ONE (10:00)
[2020-07-07] MEDS ORDERED: SODIUM CHLORIDE IVPB ONE (10:00)
[2020-07-07] MEDS ORDERED: GEMCITABINE HCL IV ONE (10:30)
[2020-07-07] MEDS ORDERED: SODIUM CHLORIDE IV ONE (10:30)
[2020-07-07 11:12] LABS: BASO % 0.7 % (0-2.0); EOS % 1.7 % (0-4.5); HEMATOCRIT 31.9 % (35.4-49); HEMOGLOBIN 10.3 GM/dL (11.7-16.9); LYMPH % 9.2 % (8-40); MCH 33.1 pg (25.7-33.7); MCHC 32.4 g/dl (32.0-35.9); MEAN CELL VOLUME 102.2 fl (80-96); MEAN PLT VOLUME 10.9 fl (7.5-11.1); MONO % 7.3 % (3.8-10.2); NEUT % 81.1 % (42.8-82.8); PLATELET COUNT 272 K/MM3 (134-434); RBC 3.12 M/mm3 (4.00-5.60); RDW 19.2 % (11.9-15.9); WHITE BLOOD COUNT 25.6 K/mm3 (4.0-10.0)
[2020-07-07 11:33] LABS: CALCIUM 9.5 mg/dL (8.5-10.1)
[2020-07-07 11:34] LABS: BLOOD UREA NITROGEN 37.8 mg/dL (7-18); MAGNESIUM 2.6 mg/dL (1.8-2.4)
[2020-07-07 11:36] LABS: BILIRUBIN,DIRECT 0.2 mg/dL (0.0-0.2)
[2020-07-07 11:37] LABS: CREATININE 1.4 mg/dL (0.55-1.3)
[2020-07-07] MEDS ORDERED: SODIUM POLYSTYRENE SULFONATE 15 GM/60 ML BOTTLE PO ONE (11:38)
[2020-07-07 11:39] LABS: BILIRUBIN,TOTAL 0.6 mg/dL (0.2-1)
[2020-07-07 15:15] LABS: ANISOCYTOSIS 1+; MACROCYTOSIS 1+; PLATELET ESTIMATE NORMAL; TEAR DROP CELLS 1+; TOXIC GRANULATION 2+
[2020-07-07 16:58] VITALS: TEMP 97.6
[2020-07-07 17:04] VITALS: BP 110/78; PULSE 76
[2020-07-07] MEDS ORDERED: PORTA CATH FLUSH 10 ML IVPUSH ONE (17:04)
== END 2020-07-07 16:00 | disposition home or self-care (01) ==
LOC: JONCCHEMO 06:34
PROVIDERS: ATTEND Internal Medicine Hematology & Oncology
PROC: 3E043GC Introduction of Other Therapeutic Substance into Central Vein, Percutaneous Approach (ICD-10-PCS; principal; 2020-07-07)
PROC: 3E04305 Introduction of Other Antineoplastic into Central Vein, Percutaneous Approach (ICD-10-PCS; 2020-07-07)
PROC: 3E04305 Introduction of Other Antineoplastic into Central Vein, Percutaneous Approach (ICD-10-PCS; 2020-07-07)
DX: Z51.11 Encounter for antineoplastic chemotherapy (principal); C25.1 Malignant neoplasm of body of pancreas
CPT/HCPCS: 36415; 80048; 80076; 83735; 85025; 96360; 96411; 96413; 96415; 96417; J2469; J9264

== ENCOUNTER 2020-07-14 07:10 | Day surgery (SDC) | payer OTHER, MEDICARE ==
[2020-07-14] MEDS ORDERED: SODIUM CHLORIDE 250 ML IV ONE ×2 (09:00→11:00)
[2020-07-14] MEDS ORDERED: PALONOSETRON HCL 0.25 MG/5 ML VIAL IVPUSH ONE (09:30)
[2020-07-14] MEDS ORDERED: DEXAMETHASONE SODIUM PHOSPHATE 4 MG in SODIUM CHLORIDE 50 ML IVPB ONE (09:30)
[2020-07-14] MEDS ORDERED: PACLITAXEL PROTEIN BOUND IVPB ONE (10:00)
[2020-07-14] MEDS ORDERED: SODIUM CHLORIDE IVPB ONE (10:00)
[2020-07-14] MEDS ORDERED: GEMCITABINE HCL IV ONE (10:30)
[2020-07-14] MEDS ORDERED: SODIUM CHLORIDE IV ONE (10:30)
[2020-07-14 11:06] LABS: BASO % 2.9 % (0-2.0); EOS % 2.1 % (0-4.5); HEMATOCRIT 28.5 % (35.4-49); HEMOGLOBIN 9.4 GM/dL (11.7-16.9); LYMPH % 33.2 % (8-40); MCH 33.6 pg (25.7-33.7); MCHC 33.1 g/dl (32.0-35.9); MEAN CELL VOLUME 101.4 fl (80-96); MEAN PLT VOLUME 11.5 fl (7.5-11.1); MONO % 12.5 % (3.8-10.2); NEUT % 49.3 % (42.8-82.8); PLATELET COUNT 254 K/MM3 (134-434); RBC 2.81 M/mm3 (4.00-5.60); URINE APPEARANCE CLEAR; URINE BILIRUBIN NEGATIVE (NEGATIVE); URINE COLOR YELLOW; URINE GLUCOSE (UA) NEGATIVE (NEGATIVE); URINE KETONE NEGATIVE (NEGATIVE); URINE LEUK ESTERASE NEGATIVE (NEGATIVE); URINE NITRITE NEGATIVE (NEGATIVE); URINE PROTEIN NEGATIVE (NEGATIVE); URINE UROBILINOGEN 0.2 mg/dL (0.2-1.0); WHITE BLOOD COUNT 4.6 K/mm3 (4.0-10.0)
[2020-07-14 11:33] LABS: CALCIUM 9.3 mg/dL (8.5-10.1)
[2020-07-14 11:34] LABS: ALBUMIN 3.8 g/dl (3.4-5.0); MAGNESIUM 2.2 mg/dL (1.8-2.4)
[2020-07-14 11:36] LABS: BILIRUBIN,DIRECT 0.2 mg/dL (0.0-0.2)
[2020-07-14 11:37] LABS: CREATININE 1.1 mg/dL (0.55-1.3)
[2020-07-14 11:38] LABS: BILIRUBIN,TOTAL 0.6 mg/dL (0.2-1); TOT PROT 6.8 g/dl (6.4-8.2)
[2020-07-14 15:35] VITALS: TEMP 97.6
[2020-07-14 15:54] VITALS: BP 111/64; PULSE 80
[2020-07-14] MEDS ORDERED: PORTA CATH FLUSH 10 ML IVPUSH ONE (15:54)
== END 2020-07-14 15:15 | disposition home or self-care (01) ==
LOC: JONCCHEMO 07:10
PROVIDERS: ATTEND Internal Medicine Hematology & Oncology
DX: Z51.11 Encounter for antineoplastic chemotherapy (principal); C25.1 Malignant neoplasm of body of pancreas
CPT/HCPCS: 36415; 80048; 80076; 81003; 83735; 85025; 87086; 96361; 96375; 96413; 96417; J2469; J9264

== ENCOUNTER 2020-07-21 07:21 | Day surgery (SDC) | payer OTHER, MEDICARE ==
[2020-07-21] MEDS ORDERED: SODIUM CHLORIDE 250 ML IV ONE ×2 (09:00→11:00)
[2020-07-21] MEDS ORDERED: DEXAMETHASONE SODIUM PHOSPHATE 4 MG in SODIUM CHLORIDE 50 ML IVPB ONE (09:30)
[2020-07-21] MEDS ORDERED: PALONOSETRON HCL 0.25 MG/5 ML VIAL IVPUSH ONE (09:30)
[2020-07-21] MEDS ORDERED: SODIUM CHLORIDE IVPB ONE (10:00)
[2020-07-21] MEDS ORDERED: PACLITAXEL PROTEIN BOUND IVPB ONE (10:00)
[2020-07-21] MEDS ORDERED: GEMCITABINE HCL IV ONE (10:30)
[2020-07-21] MEDS ORDERED: SODIUM CHLORIDE IV ONE (10:30)
[2020-07-21 10:59] LABS: BASO % 1.8 % (0-2.0); HEMATOCRIT 26.5 % (35.4-49); HEMOGLOBIN 8.8 GM/dL (11.7-16.9); LYMPH % 61.6 % (8-40); MCH 33.7 pg (25.7-33.7); MCHC 33.2 g/dl (32.0-35.9); MEAN CELL VOLUME 101.3 fl (80-96); MEAN PLT VOLUME 10.8 fl (7.5-11.1); MONO % 12.7 % (3.8-10.2); NEUT % 20.9 % (42.8-82.8); PLATELET COUNT 109 K/MM3 (134-434); RBC 2.61 M/mm3 (4.00-5.60); WHITE BLOOD COUNT 2.2 K/mm3 (4.0-10.0)
[2020-07-21 11:22] LABS: CALCIUM 9.4 mg/dL (8.5-10.1)
[2020-07-21 11:23] LABS: ALBUMIN 3.5 g/dl (3.4-5.0); BLOOD UREA NITROGEN 30.2 mg/dL (7-18); MAGNESIUM 2.3 mg/dL (1.8-2.4)
[2020-07-21 11:25] LABS: BILIRUBIN,DIRECT 0.2 mg/dL (0.0-0.2)
[2020-07-21 11:26] LABS: CREATININE 1.3 mg/dL (0.55-1.3)
[2020-07-21 11:28] LABS: TOT PROT 6.7 g/dl (6.4-8.2)
[2020-07-21 11:29] LABS: BILIRUBIN,TOTAL 0.6 mg/dL (0.2-1)
[2020-07-21] MEDS ORDERED: PEGFILGRASTIM (NEULASTA) 6 MG/0.6 ML DISP.SYRIN SQ ONE (12:32)
[2020-07-21] MEDS ORDERED: PORTA CATH FLUSH 10 ML IVPUSH ONE (13:10)
[2020-07-21 13:14] LABS: ANISOCYTOSIS 1+; HELMET CELLS 1+; MACROCYTOSIS 1+; PLATELET ESTIMATE DECREASED; TARGET CELLS 1+; TEAR DROP CELLS 1+
[2020-07-21] MEDS ORDERED: PEGFILGRASTIM-CBQV (UDENYCA) 6 MG/0.6 ML SYRINGE SQ ONE (13:15)
[2020-07-21 15:33] VITALS: BP 110/64; PULSE 74; TEMP 97.4
== END 2020-07-21 13:30 | disposition home or self-care (01) ==
LOC: JONCCHEMO 07:21
PROVIDERS: ATTEND Internal Medicine Hematology & Oncology
PROC: 3E04329 Introduction of Other Anti-infective into Central Vein, Percutaneous Approach (ICD-10-PCS; principal; 2020-07-21)
PROC: 3E013GC Introduction of Other Therapeutic Substance into Subcutaneous Tissue, Percutaneous Approach (ICD-10-PCS; 2020-07-21)
DX: C25.1 Malignant neoplasm of body of pancreas (principal); Z76.89 Persons encountering health services in other specified circumstances
CPT/HCPCS: 36415; 80048; 80076; 83735; 85025; 96360; 96361; 96372; J2505; Q5111

== ENCOUNTER 2020-08-04 07:11 | Day surgery (SDC) | payer OTHER, MEDICARE ==
[~2020-08-04 07:11] MED LIST changes: +PEGFILGRASTIM-CBQV (UDENYCA) 6 MG/0.6 ML SYRINGE SQ ONE
[2020-08-04] MEDS ORDERED: SODIUM CHLORIDE 250 ML IV ONE ×2 (09:00→11:30)
[2020-08-04] MEDS ORDERED: DEXAMETHASONE SODIUM PHOSPHATE 6 MG in SODIUM CHLORIDE 50 ML IVPB ONE (10:00)
[2020-08-04] MEDS ORDERED: PALONOSETRON HCL 0.25 MG/5 ML VIAL IVPUSH ONE (10:00)
[2020-08-04] MEDS ORDERED: PACLITAXEL PROTEIN BOUND IVPB ONE (10:30)
[2020-08-04] MEDS ORDERED: SODIUM CHLORIDE IVPB ONE (10:30)
[2020-08-04 10:51] LABS: BASO % 0.8 % (0-2.0); EOS % 1.8 % (0-4.5); HEMATOCRIT 32.8 % (35.4-49); HEMOGLOBIN 10.7 GM/dL (11.7-16.9); LYMPH % 22.5 % (8-40); MCH 31.9 pg (25.7-33.7); MCHC 32.5 g/dl (32.0-35.9); MEAN CELL VOLUME 98.3 fl (80-96); MEAN PLT VOLUME 10.6 fl (7.5-11.1); MONO % 8.8 % (3.8-10.2); NEUT % 66.1 % (42.8-82.8); PLATELET COUNT 314 K/MM3 (134-434); RBC 3.34 M/mm3 (4.00-5.60); RDW 19.4 % (11.9-15.9); WHITE BLOOD COUNT 15.5 K/mm3 (4.0-10.0)
[2020-08-04] MEDS ORDERED: SODIUM CHLORIDE IV ONE (11:00)
[2020-08-04] MEDS ORDERED: GEMCITABINE HCL IV ONE (11:00)
[2020-08-04 11:14] LABS: CALCIUM 9.3 mg/dL (8.5-10.1)
[2020-08-04 11:15] LABS: MAGNESIUM 2.4 mg/dL (1.8-2.4)
[2020-08-04 11:16] LABS: ALBUMIN 4.2 g/dl (3.4-5.0)
[2020-08-04 11:17] LABS: BILIRUBIN,DIRECT 0.2 mg/dL (0.0-0.2)
[2020-08-04 11:18] LABS: CREATININE 1.4 mg/dL (0.55-1.3)
[2020-08-04 11:19] LABS: TOT PROT 7.5 g/dl (6.4-8.2)
[2020-08-04 11:22] LABS: BILIRUBIN,TOTAL 0.6 mg/dL (0.2-1)
[2020-08-04 17:08] VITALS: TEMP 98.3
[2020-08-04 17:15] VITALS: BP 119/72; PULSE 77
== END 2020-08-04 10:30 | disposition home or self-care (01) ==
LOC: JONCCHEMO 07:11
PROVIDERS: ATTEND Internal Medicine Hematology & Oncology
DX: Z51.11 Encounter for antineoplastic chemotherapy (principal); C25.1 Malignant neoplasm of body of pancreas
CPT/HCPCS: 36415; 80048; 80076; 83735; 85025; 96361; 96375; 96413; 96417; J2469; J9264

== ENCOUNTER 2020-08-11 07:20 | Day surgery (SDC) | payer OTHER, MEDICARE ==
[2020-08-11] MEDS ORDERED: SODIUM CHLORIDE 250 ML IV ONE ×2 (09:00→11:30)
[2020-08-11] MEDS ORDERED: DEXAMETHASONE SODIUM PHOSPHATE 6 MG in SODIUM CHLORIDE 50 ML IVPB ONE (10:00)
[2020-08-11] MEDS ORDERED: PALONOSETRON HCL 0.25 MG/5 ML VIAL IVPUSH ONE (10:00)
[2020-08-11] MEDS ORDERED: SODIUM CHLORIDE IVPB ONE (10:30)
[2020-08-11] MEDS ORDERED: PACLITAXEL PROTEIN BOUND IVPB ONE (10:30)
[2020-08-11] MEDS ORDERED: GEMCITABINE HCL IV ONE (11:00)
[2020-08-11] MEDS ORDERED: SODIUM CHLORIDE IV ONE (11:00)
[2020-08-11 11:35] LABS: BASO % 2.4 % (0-2.0); EOS % 2.3 % (0-4.5); HEMATOCRIT 28.4 % (35.4-49); HEMOGLOBIN 9.4 GM/dL (11.7-16.9); LYMPH % 42.1 % (8-40); MCH 32.5 pg (25.7-33.7); MCHC 33.1 g/dl (32.0-35.9); MEAN CELL VOLUME 98.3 fl (80-96); MEAN PLT VOLUME 11.1 fl (7.5-11.1); MONO % 9.9 % (3.8-10.2); NEUT % 43.3 % (42.8-82.8); PLATELET COUNT 160 K/MM3 (134-434); RBC 2.89 M/mm3 (4.00-5.60); RDW 19.6 % (11.9-15.9); WHITE BLOOD COUNT 4.9 K/mm3 (4.0-10.0)
[2020-08-11 12:08] LABS: ALBUMIN 3.8 g/dl (3.4-5.0); BLOOD UREA NITROGEN 38.6 mg/dL (7-18); CALCIUM 8.8 mg/dL (8.5-10.1); MAGNESIUM 2.3 mg/dL (1.8-2.4)
[2020-08-11 12:10] LABS: BILIRUBIN,DIRECT 0.3 mg/dL (0.0-0.2)
[2020-08-11 12:12] LABS: CREATININE 1.2 mg/dL (0.55-1.3)
[2020-08-11 12:13] LABS: BILIRUBIN,TOTAL 0.7 mg/dL (0.2-1); TOT PROT 6.7 g/dl (6.4-8.2)
[2020-08-11] MEDS ORDERED: SODIUM POLYSTYRENE SULFONATE 15 GM/60 ML BOTTLE PO SCH (14:00)
[2020-08-11 15:36] VITALS: BP 125/55; PULSE 85; TEMP 98.6
== END 2020-08-11 15:15 | disposition home or self-care (01) ==
LOC: JONCCHEMO 07:20
PROVIDERS: ATTEND Internal Medicine Hematology & Oncology
DX: Z51.11 Encounter for antineoplastic chemotherapy (principal); C25.1 Malignant neoplasm of body of pancreas
CPT/HCPCS: 36415; 80048; 80076; 83735; 85025; 96361; 96375; 96413; 96417; J2469; J9264

== ENCOUNTER 2020-08-18 07:33 | Day surgery (SDC) | payer OTHER, MEDICARE ==
[2020-08-18] MEDS ORDERED: SODIUM CHLORIDE 250 ML IV ONE ×2 (09:00→11:30)
[2020-08-18] MEDS ORDERED: PALONOSETRON HCL 0.25 MG/5 ML VIAL IVPUSH ONE (10:00)
[2020-08-18] MEDS ORDERED: DEXAMETHASONE SODIUM PHOSPHATE 4 MG in SODIUM CHLORIDE 50 ML IVPB ONE (10:00)
[2020-08-18] MEDS ORDERED: SODIUM CHLORIDE IVPB ONE (10:30)
[2020-08-18] MEDS ORDERED: PACLITAXEL PROTEIN BOUND IVPB ONE (10:30)
[2020-08-18] MEDS ORDERED: SODIUM CHLORIDE IV ONE (11:00)
[2020-08-18] MEDS ORDERED: GEMCITABINE HCL IV ONE (11:00)
[2020-08-18 11:26] LABS: BASO % 1.3 % (0-2.0); EOS % 2.3 % (0-4.5); HEMATOCRIT 25.2 % (35.4-49); HEMOGLOBIN 8.4 GM/dL (11.7-16.9); LYMPH % 70.8 % (8-40); MCH 32.5 pg (25.7-33.7); MCHC 33.5 g/dl (32.0-35.9); MEAN PLT VOLUME 10.2 fl (7.5-11.1); MONO % 8.7 % (3.8-10.2); NEUT % 16.9 % (42.8-82.8); PLATELET COUNT 67 K/MM3 (134-434); RDW 19.7 % (11.9-15.9); WHITE BLOOD COUNT 2.5 K/mm3 (4.0-10.0)
[2020-08-18 11:44] LABS: ALBUMIN 3.8 g/dl (3.4-5.0); BLOOD UREA NITROGEN 35.3 mg/dL (7-18); CALCIUM 8.5 mg/dL (8.5-10.1)
[2020-08-18 11:45] LABS: MAGNESIUM 2.2 mg/dL (1.8-2.4)
[2020-08-18 11:47] LABS: BILIRUBIN,DIRECT 0.2 mg/dL (0.0-0.2); CREATININE 1.2 mg/dL (0.55-1.3)
[2020-08-18 11:49] LABS: BILIRUBIN,TOTAL 0.5 mg/dL (0.2-1); TOT PROT 6.3 g/dl (6.4-8.2)
[2020-08-18] MEDS ORDERED: PEGFILGRASTIM-CBQV (UDENYCA) 6 MG/0.6 ML SYRINGE SQ ONE (12:30)
[2020-08-18 13:41] LABS: ANISOCYTOSIS 1+; MACROCYTOSIS 1+; PLATELET ESTIMATE DECREASED
[2020-08-18 15:45] VITALS: BP 123/68
[2020-08-18 18:12] VITALS: PULSE 73; TEMP 98.3
== END 2020-08-18 12:41 | disposition home or self-care (01) ==
LOC: JONCCHEMO 07:33
PROVIDERS: ATTEND Internal Medicine Hematology & Oncology
PROC: 3E04329 Introduction of Other Anti-infective into Central Vein, Percutaneous Approach (ICD-10-PCS; principal; 2020-08-18)
PROC: 3E013GC Introduction of Other Therapeutic Substance into Subcutaneous Tissue, Percutaneous Approach (ICD-10-PCS; 2020-08-18)
DX: C25.1 Malignant neoplasm of body of pancreas (principal); Z76.89 Persons encountering health services in other specified circumstances
CPT/HCPCS: 36415; 80048; 80076; 83735; 85025; 96360; 96372; Q5111

== ENCOUNTER 2020-09-01 06:53 | Day surgery (SDC) | payer OTHER, MEDICARE ==
[2020-09-01] MEDS ORDERED: SODIUM CHLORIDE 250 ML IV ONE ×2 (09:00→11:00)
[2020-09-01] MEDS ORDERED: DEXAMETHASONE SODIUM PHOSPHATE 6 MG in SODIUM CHLORIDE 50 ML IVPB ONE (09:30)
[2020-09-01] MEDS ORDERED: PALONOSETRON HCL 0.25 MG/5 ML VIAL IVPUSH ONE (09:30)
[2020-09-01] MEDS ORDERED: PACLITAXEL PROTEIN-BOUND 160 MG in SODIUM CHLORIDE 32 ML IVPB ONE (10:00)
[2020-09-01] MEDS ORDERED: GEMCITABINE HCL 1,197 MG in SODIUM CHLORIDE 250 ML IV ONE (10:30)
[2020-09-01 11:57] LABS: BASO % 0.6 % (0-2.0); EOS % 1.6 % (0-4.5); HEMATOCRIT 32.2 % (35.4-49); HEMOGLOBIN 10.4 GM/dL (11.7-16.9); LYMPH % 15.7 % (8-40); MCHC 32.3 g/dl (32.0-35.9); MEAN CELL VOLUME 95.9 fl (80-96); MEAN PLT VOLUME 10.5 fl (7.5-11.1); MONO % 7.4 % (3.8-10.2); NEUT % 74.7 % (42.8-82.8); PLATELET COUNT 314 K/MM3 (134-434); RBC 3.35 M/mm3 (4.00-5.60); RDW 20.4 % (11.9-15.9); WHITE BLOOD COUNT 18.4 K/mm3 (4.0-10.0)
[2020-09-01 12:21] LABS: CALCIUM 9.2 mg/dL (8.5-10.1)
[2020-09-01 12:22] LABS: BLOOD UREA NITROGEN 32.2 mg/dL (7-18); MAGNESIUM 2.4 mg/dL (1.8-2.4)
[2020-09-01 12:24] LABS: BILIRUBIN,DIRECT 0.3 mg/dL (0.0-0.2)
[2020-09-01 12:25] LABS: CREATININE 1.2 mg/dL (0.55-1.3)
[2020-09-01 12:26] LABS: BILIRUBIN,TOTAL 0.7 mg/dL (0.2-1); TOT PROT 7.2 g/dl (6.4-8.2)
[2020-09-01 16:34] VITALS: TEMP 97.7
[2020-09-01 16:38] VITALS: BP 108/66; PULSE 84
== END 2020-09-01 16:15 | disposition home or self-care (01) ==
LOC: JONCCHEMO 06:53
PROVIDERS: ATTEND Internal Medicine Hematology & Oncology
DX: Z51.11 Encounter for antineoplastic chemotherapy (principal); C25.1 Malignant neoplasm of body of pancreas
CPT/HCPCS: 36415; 80048; 80076; 83735; 85025; 96361; 96375; 96413; 96417; J2469; J9264

== ENCOUNTER 2020-09-08 07:39 | Day surgery (SDC) | payer OTHER, MEDICARE ==
[2020-09-08 08:48] LABS: BASO % 1.5 % (0-2.0); EOS % 1.6 % (0-4.5); HEMOGLOBIN 9.9 GM/dL (11.7-16.9); LYMPH % 53.3 % (8-40); MCH 30.4 pg (25.7-33.7); MCHC 31.9 g/dl (32.0-35.9); MEAN CELL VOLUME 95.1 fl (80-96); MEAN PLT VOLUME 10.8 fl (7.5-11.1); MONO % 9.5 % (3.8-10.2); NEUT % 34.1 % (42.8-82.8); PLATELET COUNT 174 K/MM3 (134-434); RBC 3.26 M/mm3 (4.00-5.60); WHITE BLOOD COUNT 4.8 K/mm3 (4.0-10.0)
[2020-09-08] MEDS ORDERED: SODIUM CHLORIDE 250 ML IV ONE ×2 (09:00→11:00)
[2020-09-08 09:05] LABS: ALBUMIN 3.8 g/dl (3.4-5.0); BLOOD UREA NITROGEN 30.5 mg/dL (7-18); CALCIUM 9.5 mg/dL (8.5-10.1)
[2020-09-08 09:07] LABS: MAGNESIUM 2.3 mg/dL (1.8-2.4)
[2020-09-08 09:08] LABS: BILIRUBIN,DIRECT 0.3 mg/dL (0.0-0.2); CREATININE 1.2 mg/dL (0.55-1.3)
[2020-09-08 09:10] LABS: BILIRUBIN,TOTAL 0.8 mg/dL (0.2-1); TOT PROT 6.8 g/dl (6.4-8.2)
[2020-09-08] MEDS ORDERED: DEXAMETHASONE SODIUM PHOSPHATE 6 MG in SODIUM CHLORIDE 50 ML IVPB ONE (09:30)
[2020-09-08] MEDS ORDERED: PALONOSETRON HCL 0.25 MG/5 ML VIAL IVPUSH ONE (09:30)
[2020-09-08] MEDS ORDERED: PACLITAXEL PROTEIN BOUND IVPB ONE (10:00)
[2020-09-08] MEDS ORDERED: SODIUM CHLORIDE IVPB ONE (10:00)
[2020-09-08] MEDS ORDERED: GEMCITABINE HCL 1,197 MG in SODIUM CHLORIDE 250 ML IV ONE (10:30)
[2020-09-08 12:47] LABS: EPI CELLS 2 /uL (0-25.1); HYALINE CASTS 0 /uL (0-3.1); PH,URINE 5.5 (5.0-8.0); URINE APPEARANCE CLEAR; URINE BACTERIA 2 /uL (0-1359); URINE BILIRUBIN NEGATIVE (NEGATIVE); URINE COLOR YELLOW; URINE GLUCOSE (UA) NEGATIVE (NEGATIVE); URINE KETONE NEGATIVE (NEGATIVE); URINE LEUK ESTERASE TRACE (NEGATIVE); URINE NITRITE NEGATIVE (NEGATIVE); URINE PROTEIN NEGATIVE (NEGATIVE); URINE RBC 2 /uL (0-23.9); URINE UROBILINOGEN 0.2 mg/dL (0.2-1.0); URINE WBC 8 /uL (0-25.8)
[2020-09-08] MEDS ORDERED: PORTA CATH FLUSH 10 ML IVPUSH ONE (16:21)
[2020-09-08 16:22] VITALS: BP 126/62; PULSE 75; TEMP 97.4
== END 2020-09-08 12:45 | disposition home or self-care (01) ==
LOC: JONCCHEMO 07:39
PROVIDERS: ATTEND Internal Medicine Hematology & Oncology
DX: Z51.11 Encounter for antineoplastic chemotherapy (principal); C25.1 Malignant neoplasm of body of pancreas
CPT/HCPCS: 36415; 80048; 80076; 81003; 83735; 85025; 87086; 96361; 96367; 96375; 96413; 96417; J2469; J9264

== ENCOUNTER 2020-09-15 07:18 | Day surgery (SDC) | payer OTHER, MEDICARE ==
[2020-09-15] MEDS ORDERED: SODIUM CHLORIDE 250 ML IV ONE ×2 (09:00→11:00)
[2020-09-15] MEDS ORDERED: DEXAMETHASONE SODIUM PHOSPHATE 4 MG in SODIUM CHLORIDE 50 ML IVPB ONE (09:30)
[2020-09-15] MEDS ORDERED: PALONOSETRON HCL 0.25 MG/5 ML VIAL IVPUSH ONE (09:30)
[2020-09-15 09:53] LABS: BASO % 0.7 % (0-2.0); HEMATOCRIT 28.6 % (35.4-49); HEMOGLOBIN 9.1 GM/dL (11.7-16.9); LYMPH % 49.6 % (8-40); MCH 30.4 pg (25.7-33.7); MCHC 31.8 g/dl (32.0-35.9); MEAN CELL VOLUME 95.7 fl (80-96); MEAN PLT VOLUME 10.1 fl (7.5-11.1); MONO % 11.9 % (3.8-10.2); NEUT % 36.8 % (42.8-82.8); PLATELET COUNT 67 10^3/uL (134-434); RBC 2.99 M/mm3 (4.00-5.60); RDW 20.3 % (11.9-15.9); WHITE BLOOD COUNT 4.6 K/mm3 (4.0-10.0)
[2020-09-15] MEDS ORDERED: SODIUM CHLORIDE IVPB ONE ×2 (10:00→11:00)
[2020-09-15] MEDS ORDERED: PACLITAXEL PROTEIN BOUND IVPB ONE ×2 (10:00→11:00)
[2020-09-15 10:21] LABS: BLOOD UREA NITROGEN 29.2 mg/dL (7-18)
[2020-09-15 10:22] LABS: ALBUMIN 3.7 g/dl (3.4-5.0); MAGNESIUM 2.2 mg/dL (1.8-2.4)
[2020-09-15 10:24] LABS: CREATININE 1.4 mg/dL (0.55-1.3)
[2020-09-15 10:26] LABS: TOT PROT 6.7 g/dl (6.4-8.2)
[2020-09-15] MEDS ORDERED: GEMCITABINE HCL 1,197 MG in SODIUM CHLORIDE 250 ML IV ONE (10:30)
[2020-09-15 11:05] LABS: BILIRUBIN,DIRECT 0.3 mg/dL (0.0-0.2); BILIRUBIN,TOTAL 0.7 mg/dL (0.2-1)
[2020-09-15] MEDS ORDERED: SODIUM CHLORIDE IV ONE (11:30)
[2020-09-15] MEDS ORDERED: GEMCITABINE HCL IV ONE (11:30)
[2020-09-15 16:22] VITALS: BP 107/66; PULSE 74; TEMP 97.5
[2020-09-15] MEDS ORDERED: PORTA CATH FLUSH 10 ML IVPUSH ONE (16:30)
== END 2020-09-15 15:15 | disposition home or self-care (01) ==
LOC: JONCCHEMO 07:18
PROVIDERS: ATTEND Internal Medicine Hematology & Oncology
DX: Z51.11 Encounter for antineoplastic chemotherapy (principal); C25.1 Malignant neoplasm of body of pancreas
CPT/HCPCS: 36415; 80048; 80076; 83735; 85025; 96361; 96375; 96413; 96417; J2469; J9264

== ENCOUNTER 2020-09-16 07:39 | Day surgery (SDC) | payer OTHER, MEDICARE ==
[2020-09-16] MEDS ORDERED: SODIUM CHLORIDE 250 ML IV ONE (09:00)
[2020-09-16] MEDS ORDERED: PEGFILGRASTIM-CBQV (UDENYCA) 6 MG/0.6 ML SYRINGE SQ ONE (10:00)
[2020-09-16 16:57] VITALS: TEMP 97.7
[2020-09-16 16:58] VITALS: BP 100/55; PULSE 75
[2020-09-16] MEDS ORDERED: PORTA CATH FLUSH 10 ML IVPUSH ONE (16:58)
== END 2020-09-16 15:00 | disposition home or self-care (01) ==
LOC: JONCCHEMO 07:39
PROVIDERS: ATTEND Internal Medicine Hematology & Oncology
PROC: 3E043GC Introduction of Other Therapeutic Substance into Central Vein, Percutaneous Approach (ICD-10-PCS; principal; 2020-09-16)
DX: C25.1 Malignant neoplasm of body of pancreas (principal); Z76.89 Persons encountering health services in other specified circumstances
CPT/HCPCS: 96360; 96372; Q5111

== ENCOUNTER 2020-09-30 07:13 | Day surgery (SDC) | payer OTHER, MEDICARE ==
[2020-09-30] MEDS ORDERED: SODIUM CHLORIDE 250 ML IV ONE (09:00)
[2020-09-30 09:43] LABS: BASO % 0.5 % (0-2.0); EOS % 1.1 % (0-4.5); HEMATOCRIT 29.9 % (35.4-49); HEMOGLOBIN 9.5 GM/dL (11.7-16.9); LYMPH % 17.3 % (8-40); MCH 30.1 pg (25.7-33.7); MCHC 31.8 g/dl (32.0-35.9); MEAN CELL VOLUME 94.8 fl (80-96); MEAN PLT VOLUME 9.6 fl (7.5-11.1); MONO % 10.4 % (3.8-10.2); NEUT % 70.7 % (42.8-82.8); PLATELET COUNT 327 10^3/uL (134-434); RBC 3.15 M/mm3 (4.00-5.60); RDW 21.5 % (11.9-15.9); WHITE BLOOD COUNT 16.1 K/mm3 (4.0-10.0)
[2020-09-30 09:50] LABS: CALCIUM 8.5 mg/dL (8.5-10.1)
[2020-09-30 09:51] LABS: ALBUMIN 3.6 g/dl (3.4-5.0); BLOOD UREA NITROGEN 31.5 mg/dL (7-18); MAGNESIUM 2.3 mg/dL (1.8-2.4)
[2020-09-30 09:53] LABS: BILIRUBIN,DIRECT 0.2 mg/dL (0.0-0.2); CREATININE 1.2 mg/dL (0.55-1.3)
[2020-09-30 09:55] LABS: BILIRUBIN,TOTAL 0.5 mg/dL (0.2-1); TOT PROT 6.6 g/dl (6.4-8.2)
[2020-09-30] MEDS ORDERED: PALONOSETRON HCL 0.25 MG/5 ML VIAL IVPUSH ONE (10:00)
[2020-09-30] MEDS ORDERED: DEXAMETHASONE SODIUM PHOSPHATE 4 MG in SODIUM CHLORIDE 50 ML IVPB ONE (10:00)
[2020-09-30] MEDS ORDERED: PACLITAXEL PROTEIN-BOUND 160 MG in SODIUM CHLORIDE 32 ML IVPB ONE (10:30)
[2020-09-30] MEDS ORDERED: GEMCITABINE HCL 1,197 MG in SODIUM CHLORIDE 250 ML IV ONE (11:00)
[2020-09-30 11:04] LABS: ANISOCYTOSIS 3+; MACROCYTOSIS 2+
[2020-09-30 11:05] LABS: OVALOCYTE 1+; PLATELET ESTIMATE ADEQUATE; TARGET CELLS 2+
[2020-09-30 15:06] VITALS: TEMP 97.6
[2020-09-30 15:08] VITALS: BP 99/57; PULSE 77
== END 2020-09-30 13:45 | disposition home or self-care (01) ==
LOC: JONCCHEMO 07:13
PROVIDERS: ATTEND Internal Medicine Hematology & Oncology
DX: Z51.11 Encounter for antineoplastic chemotherapy (principal); C25.1 Malignant neoplasm of body of pancreas
CPT/HCPCS: 36415; 80048; 80076; 83735; 85025; 96361; 96375; 96413; 96417; J2469; J9264

== ENCOUNTER 2020-10-06 06:03 | Day surgery (SDC) | payer OTHER, MEDICARE ==
[2020-10-06] MEDS ORDERED: SODIUM CHLORIDE 250 ML IV ONE (09:00)
[2020-10-06 09:23] LABS: BASO % 1.6 % (0-2.0); EOS % 1.6 % (0-4.5); HEMATOCRIT 28.1 % (35.4-49); HEMOGLOBIN 8.9 GM/dL (11.7-16.9); LYMPH % 33.7 % (8-40); MCH 30.2 pg (25.7-33.7); MCHC 31.6 g/dl (32.0-35.9); MEAN CELL VOLUME 95.3 fl (80-96); MEAN PLT VOLUME 10.8 fl (7.5-11.1); MONO % 5.7 % (3.8-10.2); NEUT % 57.4 % (42.8-82.8); PLATELET COUNT 311 10^3/uL (134-434); RBC 2.95 M/mm3 (4.00-5.60); RDW 20.4 % (11.9-15.9); WHITE BLOOD COUNT 5.2 K/mm3 (4.0-10.0)
[2020-10-06 09:50] LABS: CALCIUM 8.6 mg/dL (8.5-10.1)
[2020-10-06 09:51] LABS: ALBUMIN 3.4 g/dl (3.4-5.0); BLOOD UREA NITROGEN 34.2 mg/dL (7-18); MAGNESIUM 2.4 mg/dL (1.8-2.4)
[2020-10-06 09:54] LABS: CREATININE 1.3 mg/dL (0.55-1.3)
[2020-10-06 09:55] LABS: BILIRUBIN,DIRECT 0.3 mg/dL (0.0-0.2); BILIRUBIN,TOTAL 0.9 mg/dL (0.2-1)
[2020-10-06 09:56] LABS: TOT PROT 6.4 g/dl (6.4-8.2)
[2020-10-06] MEDS ORDERED: PALONOSETRON HCL 0.25 MG/5 ML VIAL IVPUSH ONE (10:00)
[2020-10-06] MEDS ORDERED: DEXAMETHASONE SODIUM PHOSPHATE 4 MG in SODIUM CHLORIDE 50 ML IVPB ONE (10:00)
[2020-10-06] MEDS ORDERED: PACLITAXEL PROTEIN-BOUND 160 MG in SODIUM CHLORIDE 32 ML IVPB ONE (10:30)
[2020-10-06] MEDS ORDERED: INSULIN (NOVOLOG) ASPART 100 UNITS/ML 10ML VIAL SQ ONE (11:00)
[2020-10-06] MEDS ORDERED: GEMCITABINE HCL 1,197 MG in SODIUM CHLORIDE 250 ML IV ONE (11:00)
[2020-10-06 15:20] VITALS: TEMP 97.5
[2020-10-06 15:22] VITALS: BP 111/61; PULSE 80
== END 2020-10-06 13:50 | disposition home or self-care (01) ==
LOC: JONCCHEMO 06:03
PROVIDERS: ATTEND Internal Medicine Hematology & Oncology
PROC: 3E04305 Introduction of Other Antineoplastic into Central Vein, Percutaneous Approach (ICD-10-PCS; principal; 2020-10-06)
PROC: 3E043GC Introduction of Other Therapeutic Substance into Central Vein, Percutaneous Approach (ICD-10-PCS; 2020-10-06)
PROC: 3E0437Z Introduction of Electrolytic and Water Balance Substance into Central Vein, Percutaneous Approach (ICD-10-PCS; 2020-10-06)
DX: Z51.11 Encounter for antineoplastic chemotherapy (principal); C25.1 Malignant neoplasm of body of pancreas; E11.9 Type 2 diabetes mellitus without complications; E78.5 Hyperlipidemia, unspecified; I10 Essential (primary) hypertension
CPT/HCPCS: 36415; 80048; 80076; 83735; 85025; 96361; 96375; 96413; 96417; J2469; J9264

== ENCOUNTER 2020-10-13 05:33 | Day surgery (SDC) | payer OTHER, MEDICARE ==
[2020-10-13] MEDS ORDERED: SODIUM CHLORIDE 250 ML IV ONE (09:00)
[2020-10-13] MEDS ORDERED: PALONOSETRON HCL 0.25 MG/5 ML VIAL IVPUSH ONE (10:00)
[2020-10-13] MEDS ORDERED: DEXAMETHASONE SODIUM PHOSPHATE 4 MG in SODIUM CHLORIDE 50 ML IVPB ONE (10:00)
[2020-10-13] MEDS ORDERED: PACLITAXEL PROTEIN-BOUND 160 MG in SODIUM CHLORIDE 32 ML IVPB ONE (10:30)
[2020-10-13 10:42] LABS: BASO % 3.2 % (0-2.0); EOS % 2.5 % (0-4.5); HEMATOCRIT 28.5 % (35.4-49); HEMOGLOBIN 9.4 GM/dL (11.7-16.9); LYMPH % 58.2 % (8-40); MCH 30.8 pg (25.7-33.7); MCHC 32.8 g/dl (32.0-35.9); MEAN CELL VOLUME 93.9 fl (80-96); MEAN PLT VOLUME 9.9 fl (7.5-11.1); MONO % 11.9 % (3.8-10.2); NEUT % 24.2 % (42.8-82.8); PLATELET COUNT 113 10^3/uL (134-434); RBC 3.04 M/mm3 (4.00-5.60); RDW 20.7 % (11.9-15.9); WHITE BLOOD COUNT 3.2 K/mm3 (4.0-10.0)
[2020-10-13] MEDS ORDERED: GEMCITABINE HCL 1,197 MG in SODIUM CHLORIDE 250 ML IV ONE (11:00)
[2020-10-13 11:07] LABS: ALBUMIN 3.8 g/dl (3.4-5.0); BLOOD UREA NITROGEN 27.9 mg/dL (7-18); MAGNESIUM 2.4 mg/dL (1.8-2.4)
[2020-10-13 11:10] LABS: CREATININE 1.3 mg/dL (0.55-1.3)
[2020-10-13 11:12] LABS: BILIRUBIN,TOTAL 0.5 mg/dL (0.2-1); TOT PROT 6.9 g/dl (6.4-8.2)
[2020-10-13] MEDS ORDERED: PEGFILGRASTIM (NEULASTA) 6 MG/0.6 ML DISP.SYRIN SQ ONE (11:15)
[2020-10-13] MEDS ORDERED: PEGFILGRASTIM-CBQV (UDENYCA) 6 MG/0.6 ML SYRINGE SQ ONE (11:30)
[2020-10-13 11:37] LABS: ANISOCYTOSIS 2+; MACROCYTOSIS 1+; PLATELET ESTIMATE DECREASED
[2020-10-13 15:39] VITALS: PULSE 73; TEMP 97.5
[2020-10-13 15:46] VITALS: BP 109/60
== END 2020-10-13 12:30 | disposition home or self-care (01) ==
LOC: JONCCHEMO 05:33
PROVIDERS: ATTEND Internal Medicine Hematology & Oncology
PROC: 3E0437Z Introduction of Electrolytic and Water Balance Substance into Central Vein, Percutaneous Approach (ICD-10-PCS; principal; 2020-10-13)
PROC: 3E013GC Introduction of Other Therapeutic Substance into Subcutaneous Tissue, Percutaneous Approach (ICD-10-PCS; 2020-10-13)
DX: C25.1 Malignant neoplasm of body of pancreas (principal); E11.9 Type 2 diabetes mellitus without complications; Z76.89 Persons encountering health services in other specified circumstances
CPT/HCPCS: 36415; 80053; 83735; 85025; 96360; 96372; Q5111

== ENCOUNTER 2020-10-27 06:25 | Day surgery (SDC) | payer OTHER, MEDICARE ==
[2020-10-27] MEDS ORDERED: SODIUM CHLORIDE 250 ML IV ONE (10:00)
[2020-10-27] MEDS ORDERED: DEXAMETHASONE SODIUM PHOSPHATE 4 MG in SODIUM CHLORIDE 50 ML IVPB ONE (10:30)
[2020-10-27] MEDS ORDERED: PALONOSETRON HCL 0.25 MG/5 ML VIAL IVPUSH ONE (10:30)
[2020-10-27 10:37] LABS: BASO % 0.7 % (0-2.0); EOS % 1.6 % (0-4.5); HEMOGLOBIN 9.8 GM/dL (11.7-16.9); LYMPH % 16.9 % (8-40); MCH 29.9 pg (25.7-33.7); MCHC 32.6 g/dl (32.0-35.9); MEAN CELL VOLUME 91.7 fl (80-96); MEAN PLT VOLUME 10.4 fl (7.5-11.1); NEUT % 69.8 % (42.8-82.8); PLATELET COUNT 336 10^3/uL (134-434); RBC 3.27 M/mm3 (4.00-5.60); RDW 21.4 % (11.9-15.9); WHITE BLOOD COUNT 20.3 K/mm3 (4.0-10.0)
[2020-10-27] MEDS ORDERED: PACLITAXEL PROTEIN-BOUND 160 MG in SODIUM CHLORIDE 32 ML IVPB ONE (11:00)
[2020-10-27 11:02] LABS: CALCIUM 8.9 mg/dL (8.5-10.1)
[2020-10-27 11:03] LABS: ALBUMIN 3.6 g/dl (3.4-5.0); BLOOD UREA NITROGEN 30.7 mg/dL (7-18); MAGNESIUM 2.2 mg/dL (1.8-2.4)
[2020-10-27 11:05] LABS: BILIRUBIN,DIRECT 0.3 mg/dL (0.0-0.2)
[2020-10-27 11:06] LABS: CREATININE 1.4 mg/dL (0.55-1.3)
[2020-10-27 11:07] LABS: BILIRUBIN,TOTAL 0.7 mg/dL (0.2-1); TOT PROT 6.7 g/dl (6.4-8.2)
[2020-10-27] MEDS ORDERED: GEMCITABINE HCL 1,197 MG in SODIUM CHLORIDE 250 ML IV ONE (11:30)
[2020-10-27 13:01] LABS: ANISOCYTOSIS 1+; MACROCYTOSIS 1+; PLATELET ESTIMATE NORMAL
[2020-10-27 16:27] VITALS: BP 103/63; PULSE 84; TEMP 98.1
[2020-10-27] MEDS ORDERED: PORTA CATH FLUSH 10 ML IVPUSH ONE (16:27)
== END 2020-10-27 14:30 | disposition home or self-care (01) ==
LOC: JONCCHEMO 06:25
PROVIDERS: ATTEND Internal Medicine Hematology & Oncology
DX: Z51.11 Encounter for antineoplastic chemotherapy (principal); C25.1 Malignant neoplasm of body of pancreas; E11.9 Type 2 diabetes mellitus without complications
CPT/HCPCS: 36415; 80048; 80076; 82977; 83735; 85025; 96361; 96367; 96375; 96413; 96417; J2469; J9264

== ENCOUNTER 2020-11-03 06:57 | Day surgery (SDC) | payer OTHER, MEDICARE ==
[2020-11-03] MEDS ORDERED: SODIUM CHLORIDE 250 ML IV ONE (09:00)
[2020-11-03] MEDS ORDERED: PALONOSETRON HCL 0.25 MG/5 ML VIAL IVPUSH ONE (09:30)
[2020-11-03] MEDS ORDERED: DEXAMETHASONE SODIUM PHOSPHATE 4 MG in SODIUM CHLORIDE 50 ML IVPB ONE (09:30)
[2020-11-03 09:48] LABS: BASO % 1.5 % (0-2.0); EOS % 2.4 % (0-4.5); HEMATOCRIT 29.2 % (35.4-49); HEMOGLOBIN 9.6 GM/dL (11.7-16.9); LYMPH % 37.2 % (8-40); MCH 30.2 pg (25.7-33.7); MCHC 32.9 g/dl (32.0-35.9); MEAN CELL VOLUME 91.8 fl (80-96); MEAN PLT VOLUME 10.8 fl (7.5-11.1); MONO % 10.3 % (3.8-10.2); NEUT % 48.6 % (42.8-82.8); PLATELET COUNT 167 10^3/uL (134-434); RBC 3.18 M/mm3 (4.00-5.60); RDW 21.4 % (11.9-15.9); WHITE BLOOD COUNT 5.2 K/mm3 (4.0-10.0)
[2020-11-03] MEDS ORDERED: SODIUM CHLORIDE IVPB ONE ×2 (10:00→12:30)
[2020-11-03] MEDS ORDERED: PACLITAXEL PROTEIN BOUND IVPB ONE ×2 (10:00→12:30)
[2020-11-03 10:20] LABS: ALBUMIN 3.7 g/dl (3.4-5.0); BLOOD UREA NITROGEN 29.6 mg/dL (7-18); CALCIUM 8.9 mg/dL (8.5-10.1); MAGNESIUM 2.3 mg/dL (1.8-2.4)
[2020-11-03 10:22] LABS: BILIRUBIN,DIRECT 0.2 mg/dL (0.0-0.2); CREATININE 1.3 mg/dL (0.55-1.3)
[2020-11-03 10:24] LABS: BILIRUBIN,TOTAL 0.6 mg/dL (0.2-1); TOT PROT 6.6 g/dl (6.4-8.2)
[2020-11-03] MEDS ORDERED: GEMCITABINE HCL IV ONE (10:30)
[2020-11-03] MEDS ORDERED: SODIUM CHLORIDE IV ONE (10:30)
[2020-11-03 17:22] VITALS: TEMP 97.8
[2020-11-03 17:26] VITALS: BP 93/63; PULSE 84
== END 2020-11-03 14:56 | disposition home or self-care (01) ==
LOC: JONCCHEMO 06:57
PROVIDERS: ATTEND Internal Medicine Hematology & Oncology
DX: Z51.11 Encounter for antineoplastic chemotherapy (principal); C25.1 Malignant neoplasm of body of pancreas
CPT/HCPCS: 36415; 80048; 80076; 83735; 85025; 96361; 96375; 96413; 96417; J2469; J9264

== ENCOUNTER 2020-11-10 07:09 | Day surgery (SDC) | payer OTHER, MEDICARE ==
[2020-11-10] MEDS ORDERED: SODIUM CHLORIDE 250 ML IV ONE (09:00)
[2020-11-10] MEDS ORDERED: DEXAMETHASONE SODIUM PHOSPHATE 4 MG in SODIUM CHLORIDE 50 ML IVPB ONE (09:30)
[2020-11-10] MEDS ORDERED: PALONOSETRON HCL 0.25 MG/5 ML VIAL IVPUSH ONE (09:30)
[2020-11-10 09:52] LABS: HEMATOCRIT 27.6 % (35.4-49); HEMOGLOBIN 9.2 GM/dL (11.7-16.9); MCH 30.4 pg (25.7-33.7); MCHC 33.5 g/dl (32.0-35.9); MEAN CELL VOLUME 90.7 fl (80-96); MEAN PLT VOLUME 10.1 fl (7.5-11.1); PLATELET COUNT 93 10^3/uL (134-434); RBC 3.04 M/mm3 (4.00-5.60); RDW 22.1 % (11.9-15.9); WHITE BLOOD COUNT 2.7 K/mm3 (4.0-10.0)
[2020-11-10] MEDS ORDERED: SODIUM CHLORIDE IVPB ONE (10:00)
[2020-11-10] MEDS ORDERED: PACLITAXEL PROTEIN BOUND IVPB ONE (10:00)
[2020-11-10 10:19] LABS: BLOOD UREA NITROGEN 32.1 mg/dL (7-18); CALCIUM 8.8 mg/dL (8.5-10.1)
[2020-11-10 10:20] LABS: ALBUMIN 3.7 g/dl (3.4-5.0)
[2020-11-10 10:22] LABS: BILIRUBIN,DIRECT 0.2 mg/dL (0.0-0.2); CREATININE 1.3 mg/dL (0.55-1.3)
[2020-11-10 10:24] LABS: BILIRUBIN,TOTAL 0.5 mg/dL (0.2-1); TOT PROT 6.5 g/dl (6.4-8.2)
[2020-11-10 10:29] LABS: MAGNESIUM 2.4 mg/dL (1.8-2.4)
[2020-11-10] MEDS ORDERED: GEMCITABINE HCL IV ONE (10:30)
[2020-11-10] MEDS ORDERED: SODIUM CHLORIDE IV ONE (10:30)
[2020-11-10 10:47] LABS: ANISOCYTOSIS 1+; MACROCYTOSIS 1+; PLATELET ESTIMATE DECREASED; TEAR DROP CELLS 1+
[2020-11-10] MEDS ORDERED: TBO-FILGRASTIM 300 MCG/0.5 ML DISP.SYRINGE SQ ONE (11:45)
[2020-11-10 17:26] VITALS: BP 99/57; PULSE 68; TEMP 97.6
== END 2020-11-10 12:00 | disposition home or self-care (01) ==
LOC: JONCCHEMO 07:09
PROVIDERS: ATTEND Internal Medicine Hematology & Oncology
PROC: 3E013GC Introduction of Other Therapeutic Substance into Subcutaneous Tissue, Percutaneous Approach (ICD-10-PCS; principal; 2020-11-10)
DX: C25.1 Malignant neoplasm of body of pancreas (principal); Z76.89 Persons encountering health services in other specified circumstances
CPT/HCPCS: 36415; 80048; 80076; 83735; 85025; 96372; J1447

== ENCOUNTER 2020-11-11 06:45 | Day surgery (SDC) | payer OTHER, MEDICARE ==
[2020-11-11] MEDS ORDERED: PEGFILGRASTIM-CBQV (UDENYCA) 6 MG/0.6 ML SYRINGE SQ ONE (10:00)
[2020-11-11 10:41] LABS: CALCIUM 8.8 mg/dL (8.5-10.1)
[2020-11-11 10:42] LABS: ALBUMIN 3.6 g/dl (3.4-5.0); BLOOD UREA NITROGEN 31.6 mg/dL (7-18); MAGNESIUM 2.2 mg/dL (1.8-2.4)
[2020-11-11 10:45] LABS: BASO % 0.2 % (0-2.0); CREATININE 1.4 mg/dL (0.55-1.3); EOS % 0.4 % (0-4.5); HEMOGLOBIN 9.4 GM/dL (11.7-16.9); LYMPH % 10.6 % (8-40); MCH 29.6 pg (25.7-33.7); MCHC 32.4 g/dl (32.0-35.9); MEAN CELL VOLUME 91.3 fl (80-96); MEAN PLT VOLUME 10.5 fl (7.5-11.1); MONO % 4.9 % (3.8-10.2); NEUT % 83.9 % (42.8-82.8); PLATELET COUNT 77 10^3/uL (134-434); RBC 3.17 M/mm3 (4.00-5.60); RDW 21.8 % (11.9-15.9); WHITE BLOOD COUNT 24.2 K/mm3 (4.0-10.0)
[2020-11-11 10:47] LABS: BILIRUBIN,TOTAL 0.6 mg/dL (0.2-1); TOT PROT 6.7 g/dl (6.4-8.2)
[2020-11-11 12:01] LABS: ANISOCYTOSIS 1+; MACROCYTOSIS 0; PLATELET ESTIMATE DECREASED
[2020-11-11 15:22] VITALS: BP 83/49; PULSE 73; TEMP 97.6
== END 2020-11-11 10:35 | disposition home or self-care (01) ==
LOC: JONCCHEMO 06:45
PROVIDERS: ATTEND Internal Medicine Hematology & Oncology
PROC: 3E013GC Introduction of Other Therapeutic Substance into Subcutaneous Tissue, Percutaneous Approach (ICD-10-PCS; principal; 2020-11-11)
DX: C25.1 Malignant neoplasm of body of pancreas (principal); Z76.89 Persons encountering health services in other specified circumstances
CPT/HCPCS: 36415; 80053; 83735; 85025; 96372; Q5111

== ENCOUNTER 2020-11-24 07:04 | Day surgery (SDC) | payer OTHER, MEDICARE ==
[2020-11-24] MEDS ORDERED: SODIUM CHLORIDE 250 ML IV ONE (09:00)
[2020-11-24] MEDS ORDERED: DEXAMETHASONE SODIUM PHOSPHATE 4 MG in SODIUM CHLORIDE 50 ML IVPB ONE (10:00)
[2020-11-24] MEDS ORDERED: PALONOSETRON HCL 0.25 MG/5 ML VIAL IVPUSH ONE (10:00)
[2020-11-24 10:09] LABS: BASO % 0.8 % (0-2.0); EOS % 2.3 % (0-4.5); HEMATOCRIT 31.7 % (35.4-49); HEMOGLOBIN 10.4 GM/dL (11.7-16.9); LYMPH % 16.3 % (8-40); MCH 29.4 pg (25.7-33.7); MCHC 32.9 g/dl (32.0-35.9); MEAN CELL VOLUME 89.4 fl (80-96); MEAN PLT VOLUME 10.3 fl (7.5-11.1); MONO % 8.5 % (3.8-10.2); NEUT % 72.1 % (42.8-82.8); PLATELET COUNT 322 10^3/uL (134-434); RBC 3.54 M/mm3 (4.00-5.60); RDW 22.9 % (11.9-15.9); WHITE BLOOD COUNT 16.9 K/mm3 (4.0-10.0)
[2020-11-24 10:29] LABS: ALBUMIN 3.9 g/dl (3.4-5.0); CALCIUM 9.3 mg/dL (8.5-10.1)
[2020-11-24 10:30] LABS: BLOOD UREA NITROGEN 27.6 mg/dL (7-18); MAGNESIUM 2.2 mg/dL (1.8-2.4)
[2020-11-24] MEDS ORDERED: SODIUM CHLORIDE IVPB ONE (10:30)
[2020-11-24] MEDS ORDERED: PACLITAXEL PROTEIN BOUND IVPB ONE (10:30)
[2020-11-24 10:32] LABS: BILIRUBIN,DIRECT 0.3 mg/dL (0.0-0.2)
[2020-11-24 10:33] LABS: CREATININE 1.5 mg/dL (0.55-1.3)
[2020-11-24 10:34] LABS: BILIRUBIN,TOTAL 0.8 mg/dL (0.2-1)
[2020-11-24] MEDS ORDERED: SODIUM CHLORIDE IV ONE (11:00)
[2020-11-24] MEDS ORDERED: GEMCITABINE HCL IV ONE (11:00)
[2020-11-24 11:54] LABS: ANISOCYTOSIS 1+; MACROCYTOSIS 1+; OVALOCYTE 1+; PLATELET ESTIMATE NORMAL
[2020-11-24 16:36] VITALS: TEMP 97.9
[2020-11-24 16:37] VITALS: BP 110/71; PULSE 80
== END 2020-11-24 13:40 | disposition home or self-care (01) ==
LOC: JONCCHEMO 07:04
PROVIDERS: ATTEND Internal Medicine Hematology & Oncology
PROC: 3E04305 Introduction of Other Antineoplastic into Central Vein, Percutaneous Approach (ICD-10-PCS; principal; 2020-11-24)
PROC: 3E043GC Introduction of Other Therapeutic Substance into Central Vein, Percutaneous Approach (ICD-10-PCS; 2020-11-24)
PROC: 3E0437Z Introduction of Electrolytic and Water Balance Substance into Central Vein, Percutaneous Approach (ICD-10-PCS; 2020-11-24)
DX: Z51.11 Encounter for antineoplastic chemotherapy (principal); C25.1 Malignant neoplasm of body of pancreas
CPT/HCPCS: 36415; 80048; 80076; 83735; 84153; 85025; 96361; 96375; 96413; 96417; J2469; J9264

== ENCOUNTER 2020-12-02 06:55 | Day surgery (SDC) | payer OTHER, MEDICARE ==
[2020-12-02] MEDS ORDERED: SODIUM CHLORIDE 250 ML IV ONE (09:00)
[2020-12-02 09:36] LABS: BASO % 1.1 % (0-2.0); EOS % 2.8 % (0-4.5); HEMATOCRIT 29.7 % (35.4-49); LYMPH % 29.9 % (8-40); MCH 30.2 pg (25.7-33.7); MCHC 33.5 g/dl (32.0-35.9); MEAN CELL VOLUME 90.2 fl (80-96); MEAN PLT VOLUME 11.3 fl (7.5-11.1); MONO % 7.8 % (3.8-10.2); NEUT % 58.4 % (42.8-82.8); PLATELET COUNT 157 10^3/uL (134-434); RBC 3.29 M/mm3 (4.00-5.60); RDW 22.8 % (11.9-15.9)
[2020-12-02] MEDS ORDERED: DEXAMETHASONE SODIUM PHOSPHATE 4 MG in SODIUM CHLORIDE 50 ML IVPB ONE (10:00)
[2020-12-02] MEDS ORDERED: PALONOSETRON HCL 0.25 MG/5 ML VIAL IVPUSH ONE (10:00)
[2020-12-02 10:01] LABS: ALBUMIN 3.7 g/dl (3.4-5.0)
[2020-12-02 10:02] LABS: BLOOD UREA NITROGEN 29.6 mg/dL (7-18); CALCIUM 8.9 mg/dL (8.5-10.1); MAGNESIUM 2.2 mg/dL (1.8-2.4)
[2020-12-02 10:04] LABS: BILIRUBIN,DIRECT 0.3 mg/dL (0.0-0.2); CREATININE 1.4 mg/dL (0.55-1.3)
[2020-12-02 10:05] LABS: BILIRUBIN,TOTAL 0.7 mg/dL (0.2-1); TOT PROT 6.9 g/dl (6.4-8.2)
[2020-12-02] MEDS ORDERED: PACLITAXEL PROTEIN BOUND IVPB ONE (10:30)
[2020-12-02] MEDS ORDERED: SODIUM CHLORIDE IVPB ONE (10:30)
[2020-12-02 10:38] LABS: ANISOCYTOSIS 1+; PLATELET ESTIMATE NORMAL
[2020-12-02] MEDS ORDERED: GEMCITABINE HCL IV ONE (11:00)
[2020-12-02] MEDS ORDERED: SODIUM CHLORIDE IV ONE (11:00)
[2020-12-02 17:14] VITALS: BP 107/59; PULSE 77; TEMP 98.3
== END 2020-12-02 13:25 | disposition home or self-care (01) ==
LOC: JONCCHEMO 06:55
PROVIDERS: ATTEND Internal Medicine Hematology & Oncology
PROC: 3E04305 Introduction of Other Antineoplastic into Central Vein, Percutaneous Approach (ICD-10-PCS; principal; 2020-12-02)
PROC: 3E043GC Introduction of Other Therapeutic Substance into Central Vein, Percutaneous Approach (ICD-10-PCS; 2020-12-02)
PROC: 3E0437Z Introduction of Electrolytic and Water Balance Substance into Central Vein, Percutaneous Approach (ICD-10-PCS; 2020-12-02)
DX: Z51.11 Encounter for antineoplastic chemotherapy (principal); C25.1 Malignant neoplasm of body of pancreas
CPT/HCPCS: 36415; 80048; 80076; 83735; 85025; 96361; 96375; 96413; 96417; J2469; J9264

== ENCOUNTER 2020-12-08 08:09 | Day surgery (SDC) | payer OTHER, MEDICARE ==
[2020-12-08] MEDS ORDERED: SODIUM CHLORIDE 250 ML IV ONE (09:00)
[2020-12-08 09:59] LABS: BASO % 1.3 % (0-2.0); HEMATOCRIT 28.5 % (35.4-49); HEMOGLOBIN 9.4 GM/dL (11.7-16.9); LYMPH % 44.7 % (8-40); MCH 29.9 pg (25.7-33.7); MCHC 32.8 g/dl (32.0-35.9); MEAN CELL VOLUME 91.2 fl (80-96); MEAN PLT VOLUME 10.2 fl (7.5-11.1); MONO % 2.9 % (3.8-10.2); NEUT % 49.1 % (42.8-82.8); PLATELET COUNT 98 10^3/uL (134-434); RBC 3.12 M/mm3 (4.00-5.60); RDW 22.8 % (11.9-15.9); WHITE BLOOD COUNT 3.6 K/mm3 (4.0-10.0)
[2020-12-08] MEDS ORDERED: PALONOSETRON HCL 0.25 MG/5 ML VIAL IVPUSH ONE (10:00)
[2020-12-08] MEDS ORDERED: DEXAMETHASONE SODIUM PHOSPHATE 4 MG in SODIUM CHLORIDE 50 ML IVPB ONE (10:00)
[2020-12-08 10:24] LABS: ALBUMIN 3.7 g/dl (3.4-5.0); BLOOD UREA NITROGEN 35.5 mg/dL (7-18); MAGNESIUM 2.2 mg/dL (1.8-2.4)
[2020-12-08 10:27] LABS: BILIRUBIN,DIRECT 0.3 mg/dL (0.0-0.2); CREATININE 1.5 mg/dL (0.55-1.3)
[2020-12-08 10:28] LABS: BILIRUBIN,TOTAL 0.8 mg/dL (0.2-1); TOT PROT 6.7 g/dl (6.4-8.2)
[2020-12-08] MEDS ORDERED: PACLITAXEL PROTEIN BOUND IVPB ONE (10:30)
[2020-12-08] MEDS ORDERED: SODIUM CHLORIDE IVPB ONE (10:30)
[2020-12-08] MEDS ORDERED: SODIUM CHLORIDE IV ONE (11:00)
[2020-12-08] MEDS ORDERED: GEMCITABINE HCL IV ONE (11:00)
[2020-12-08 13:39] LABS: ANISOCYTOSIS 1+; MACROCYTOSIS 1+; OVALOCYTE 1+; PLATELET ESTIMATE DECREASED; TARGET CELLS 1+; TEAR DROP CELLS 1+
[2020-12-08 17:37] VITALS: TEMP 98.1
[2020-12-08 17:42] VITALS: BP 110/40; PULSE 63
[2020-12-08] MEDS ORDERED: PORTA CATH FLUSH 10 ML IVPUSH ONE (17:42)
== END 2020-12-08 13:45 | disposition home or self-care (01) ==
LOC: JONCCHEMO 08:09
PROVIDERS: ATTEND Internal Medicine Hematology & Oncology
DX: Z51.11 Encounter for antineoplastic chemotherapy (principal); C25.1 Malignant neoplasm of body of pancreas
CPT/HCPCS: 36415; 80048; 80076; 83735; 85025; 96361; 96375; 96413; 96417; J2469; J9264

== ENCOUNTER 2020-12-09 06:44 | Day surgery (SDC) | payer OTHER, MEDICARE ==
[2020-12-09] MEDS ORDERED: PEGFILGRASTIM-CBQV (UDENYCA) 6 MG/0.6 ML SYRINGE SQ ONE (10:00)
[2020-12-09 14:59] VITALS: BP 113/65; PULSE 76; TEMP 97.7
== END 2020-12-09 12:44 | disposition home or self-care (01) ==
LOC: JONCCHEMO 06:44
PROVIDERS: ATTEND Internal Medicine Hematology & Oncology
PROC: 3E013GC Introduction of Other Therapeutic Substance into Subcutaneous Tissue, Percutaneous Approach (ICD-10-PCS; principal; 2020-12-09)
DX: C25.1 Malignant neoplasm of body of pancreas (principal); Z76.89 Persons encountering health services in other specified circumstances
CPT/HCPCS: 96372; Q5111

== ENCOUNTER 2020-12-22 07:22 | Day surgery (SDC) | payer OTHER, MEDICARE ==
[2020-12-22] MEDS ORDERED: SODIUM CHLORIDE 250 ML IV ONE (09:00)
[2020-12-22] MEDS ORDERED: DEXAMETHASONE SODIUM PHOSPHATE 4 MG in SODIUM CHLORIDE 50 ML IVPB ONE (09:30)
[2020-12-22] MEDS ORDERED: PALONOSETRON HCL 0.25 MG/5 ML VIAL IVPUSH ONE (09:30)
[2020-12-22 09:38] LABS: HEMATOCRIT 29.3 % (35.4-49); HEMOGLOBIN 9.6 GM/dL (11.7-16.9); MCH 30.1 pg (25.7-33.7); MCHC 32.8 g/dl (32.0-35.9); MEAN CELL VOLUME 91.8 fl (80-96); MEAN PLT VOLUME 10.6 fl (7.5-11.1); PLATELET COUNT 339 10^3/uL (134-434); RBC 3.19 M/mm3 (4.00-5.60); WHITE BLOOD COUNT 22.2 K/mm3 (4.0-10.0)
[2020-12-22] MEDS ORDERED: SODIUM CHLORIDE IVPB ONE (10:00)
[2020-12-22] MEDS ORDERED: PACLITAXEL PROTEIN BOUND IVPB ONE (10:00)
[2020-12-22 10:05] LABS: CALCIUM 8.6 mg/dL (8.5-10.1)
[2020-12-22 10:06] LABS: ALBUMIN 3.5 g/dl (3.4-5.0); BLOOD UREA NITROGEN 23.6 mg/dL (7-18); MAGNESIUM 2.1 mg/dL (1.8-2.4)
[2020-12-22 10:09] LABS: BILIRUBIN,DIRECT 0.2 mg/dL (0.0-0.2); CREATININE 1.2 mg/dL (0.55-1.3)
[2020-12-22 10:11] LABS: BILIRUBIN,TOTAL 0.8 mg/dL (0.2-1); TOT PROT 6.5 g/dl (6.4-8.2)
[2020-12-22] MEDS ORDERED: SODIUM CHLORIDE IV ONE (10:30)
[2020-12-22] MEDS ORDERED: GEMCITABINE HCL IV ONE (10:30)
[2020-12-22 11:31] LABS: ANISOCYTOSIS 1+; MACROCYTOSIS 0; OVALOCYTE 1+; PLATELET ESTIMATE NORMAL
[2020-12-22 18:05] VITALS: BP 167/62; PULSE 72; TEMP 97.5
[2020-12-22] MEDS ORDERED: PORTA CATH FLUSH 10 ML IVPUSH ONE (18:05)
== END 2020-12-22 15:15 | disposition home or self-care (01) ==
LOC: JONCCHEMO 07:22
PROVIDERS: ATTEND Internal Medicine Hematology & Oncology
DX: Z51.11 Encounter for antineoplastic chemotherapy (principal); C25.1 Malignant neoplasm of body of pancreas
CPT/HCPCS: 36415; 80048; 80076; 83735; 85025; 96367; 96375; 96413; 96417; J2469; J9264

== ENCOUNTER 2020-12-29 07:33 | Day surgery (SDC) | payer OTHER, MEDICARE ==
[2020-12-29 08:49] LABS: BASO % 0.5 % (0-2.0); EOS % 0.3 % (0-4.5); HEMATOCRIT 28.8 % (35.4-49); HEMOGLOBIN 9.6 GM/dL (11.7-16.9); LYMPH % 25.1 % (8-40); MCH 30.3 pg (25.7-33.7); MCHC 33.3 g/dl (32.0-35.9); MEAN PLT VOLUME 10.2 fl (7.5-11.1); NEUT % 67.1 % (42.8-82.8); PLATELET COUNT 370 10^3/uL (134-434); RBC 3.17 M/mm3 (4.00-5.60); RDW 23.8 % (11.9-15.9); WHITE BLOOD COUNT 8.4 K/mm3 (4.0-10.0)
[2020-12-29] MEDS ORDERED: SODIUM CHLORIDE 250 ML IV ONE (09:00)
[2020-12-29 09:12] LABS: ALBUMIN 3.6 g/dl (3.4-5.0); CALCIUM 9.1 mg/dL (8.5-10.1); MAGNESIUM 2.1 mg/dL (1.8-2.4)
[2020-12-29 09:13] LABS: BLOOD UREA NITROGEN 33.3 mg/dL (7-18)
[2020-12-29 09:15] LABS: BILIRUBIN,DIRECT 0.3 mg/dL (0.0-0.2); CREATININE 1.3 mg/dL (0.55-1.3)
[2020-12-29 09:17] LABS: BILIRUBIN,TOTAL 0.7 mg/dL (0.2-1); TOT PROT 6.7 g/dl (6.4-8.2)
[2020-12-29] MEDS ORDERED: DEXAMETHASONE SODIUM PHOSPHATE 4 MG in SODIUM CHLORIDE 50 ML IVPB ONE (09:30)
[2020-12-29] MEDS ORDERED: PALONOSETRON HCL 0.25 MG/5 ML VIAL IVPUSH ONE (09:30)
[2020-12-29] MEDS ORDERED: PACLITAXEL PROTEIN-BOUND 155 MG in SODIUM CHLORIDE 31 ML IVPB ONE (10:00)
[2020-12-29] MEDS ORDERED: GEMCITABINE HCL IV ONE (10:30)
[2020-12-29] MEDS ORDERED: SODIUM CHLORIDE IV ONE (10:30)
[2020-12-29 17:58] VITALS: BP 136/63; PULSE 80; TEMP 97.5
[2020-12-29] MEDS ORDERED: PORTA CATH FLUSH 10 ML IVPUSH ONE (17:59)
== END 2020-12-29 14:10 | disposition home or self-care (01) ==
LOC: JONCCHEMO 07:33
PROVIDERS: ATTEND Internal Medicine Hematology & Oncology
DX: Z51.11 Encounter for antineoplastic chemotherapy (principal); C25.1 Malignant neoplasm of body of pancreas
CPT/HCPCS: 36415; 80048; 80076; 83735; 85025; 96361; 96367; 96375; 96413; 96417; J2469; J9264

== ENCOUNTER 2021-01-05 06:55 | Day surgery (SDC) | payer OTHER, MEDICARE ==
[2021-01-05] MEDS ORDERED: SODIUM CHLORIDE 250 ML IV ONE (09:00)
[2021-01-05 09:19] LABS: BASO % 2.2 % (0-2.0); EOS % 1.1 % (0-4.5); HEMOGLOBIN 9.3 GM/dL (11.7-16.9); LYMPH % 43.5 % (8-40); MCH 30.5 pg (25.7-33.7); MCHC 33.3 g/dl (32.0-35.9); MEAN CELL VOLUME 91.8 fl (80-96); MEAN PLT VOLUME 10.5 fl (7.5-11.1); MONO % 12.9 % (3.8-10.2); NEUT % 40.3 % (42.8-82.8); PLATELET COUNT 117 10^3/uL (134-434); RBC 3.05 M/mm3 (4.00-5.60); RDW 23.5 % (11.9-15.9); WHITE BLOOD COUNT 3.1 K/mm3 (4.0-10.0)
[2021-01-05] MEDS ORDERED: PALONOSETRON HCL 0.25 MG/5 ML VIAL IVPUSH ONE (09:30)
[2021-01-05] MEDS ORDERED: DEXAMETHASONE SODIUM PHOSPHATE 4 MG in SODIUM CHLORIDE 50 ML IVPB ONE (09:30)
[2021-01-05] MEDS ORDERED: PEGFILGRASTIM (NEULASTA) 6 MG/0.6 ML DISP.SYRIN SQ ONE (09:32)
[2021-01-05 09:42] LABS: CALCIUM 8.8 mg/dL (8.5-10.1)
[2021-01-05 09:43] LABS: ALBUMIN 3.4 g/dl (3.4-5.0); MAGNESIUM 1.9 mg/dL (1.8-2.4)
[2021-01-05 09:46] LABS: CREATININE 1.2 mg/dL (0.55-1.3)
[2021-01-05 09:47] LABS: BILIRUBIN,DIRECT 0.3 mg/dL (0.0-0.2)
[2021-01-05 09:48] LABS: BILIRUBIN,TOTAL 0.6 mg/dL (0.2-1); TOT PROT 6.7 g/dl (6.4-8.2)
[2021-01-05 09:56] LABS: ANISOCYTOSIS 2+; MACROCYTOSIS 1+; PLATELET ESTIMATE DECREASED
[2021-01-05] MEDS ORDERED: PEGFILGRASTIM-CBQV (UDENYCA) 6 MG/0.6 ML SYRINGE SQ ONE (10:00)
[2021-01-05] MEDS ORDERED: PACLITAXEL PROTEIN-BOUND 155 MG in SODIUM CHLORIDE 31 ML IVPB ONE (10:00)
[2021-01-05] MEDS ORDERED: SODIUM CHLORIDE IV ONE (10:30)
[2021-01-05] MEDS ORDERED: GEMCITABINE HCL IV ONE (10:30)
[2021-01-05] MEDS ORDERED: SODIUM CHLORIDE 500 ML IV SCH (11:45)
[2021-01-05 17:37] VITALS: BP 118/63; PULSE 80; TEMP 97.6
== END 2021-01-05 12:10 | disposition home or self-care (01) ==
LOC: JONCCHEMO 06:55
PROVIDERS: ATTEND Internal Medicine Hematology & Oncology
PROC: 3E013GC Introduction of Other Therapeutic Substance into Subcutaneous Tissue, Percutaneous Approach (ICD-10-PCS; principal; 2021-01-05)
PROC: 3E0437Z Introduction of Electrolytic and Water Balance Substance into Central Vein, Percutaneous Approach (ICD-10-PCS; 2021-01-05)
DX: C25.9 Malignant neoplasm of pancreas, unspecified (principal); C79.9 Secondary malignant neoplasm of unspecified site; E11.9 Type 2 diabetes mellitus without complications; Z79.4 Long term (current) use of insulin; Z76.89 Persons encountering health services in other specified circumstances
CPT/HCPCS: 36415; 80053; 80076; 83735; 85025; 96360; 96372; Q5111

== ENCOUNTER 2021-01-09 15:05 | Inpatient (IN) | payer OTHER, MEDICARE ==
[2021-01-09] MEDS ORDERED: morphine CARPU-JECT 2 MG/1 ML DISP.SYRIN IVPUSH ONE (15:53)
[2021-01-09] MEDS ORDERED: morphine SULFATE 4 MG/ML VIAL ONE (16:10)
[2021-01-09] MEDS ORDERED: ONDANSETRON 4 MG/2 ML VIAL ONE (16:10)
[2021-01-09] MEDS ORDERED: ONDANSETRON 4 MG/2 ML VIAL IVPUSH ONE (16:49)
[2021-01-09 16:50] LABS: HEMATOCRIT 29.6 % (35.4-49); HEMOGLOBIN 9.5 GM/dL (11.7-16.9); MCH 29.5 pg (25.7-33.7); MEAN CELL VOLUME 92.1 fl (80-96); MEAN PLT VOLUME 10.4 fl (7.5-11.1); PLATELET COUNT 133 10^3/uL (134-434); RBC 3.21 M/mm3 (4.00-5.60); RDW 24.7 % (11.9-15.9)
[2021-01-09 16:53] LABS: WHITE BLOOD COUNT 52.3 K/mm3 (4.0-10.0)
[2021-01-09 16:56] LABS: INR 1.34 (0.83-1.09); PROTHROMBIN TIME (PATIENT) 15.1 SEC (9.7-13.0)
[2021-01-09 16:59] LABS: ACTIVATED PTT 26.7 SECONDS (25.2-36.5)
[2021-01-09] MEDS ORDERED: HYDROmorphone HCL CARPU-JECT 2 MG/1 ML DISP.SYRIN IVPUSH ONE ×2 (17:14→18:48)
[2021-01-09 17:17] LABS: CALCIUM 9.5 mg/dL (8.5-10.1)
[2021-01-09 17:18] LABS: ALBUMIN 3.8 g/dl (3.4-5.0); BLOOD UREA NITROGEN 22.5 mg/dL (7-18)
[2021-01-09] MEDS ORDERED: METOCLOPRAMIDE HCL INJECTION 10 MG/2 ML VIAL IVPUSH ONE (17:18)
[2021-01-09 17:20] LABS: CREATININE 1.2 mg/dL (0.55-1.3)
[2021-01-09 17:22] LABS: TOT PROT 7.2 g/dl (6.4-8.2)
[2021-01-09] MEDS ORDERED: HYDROmorphone HCl 2 MG/ML VIAL ONE ×2 (17:25→18:54)
[2021-01-09] MEDS ORDERED: METOCLOPRAMIDE HCL INJECTION 10 MG/2 ML VIAL ONE (17:26)
[2021-01-09 17:28] LABS: BILIRUBIN,TOTAL 0.6 mg/dL (0.2-1)
[2021-01-09 17:28] LABS: ANISOCYTOSIS 2+; MACROCYTOSIS 0; PLATELET ESTIMATE DECREASED
[2021-01-09 19:56] LABS: LACTIC ACID 2.9 mmol/L (0.4-2.0)
[2021-01-09] MEDS ORDERED: SODIUM CHLORIDE 1,000 ML IV STA (21:47)
[2021-01-09] MEDS ORDERED: KETAMINE HCL 500 MG/10 ML VIAL IVPB ONE ×2 (21:53)
[2021-01-09] MEDS ORDERED: KETAMINE HCL 200 MG/20 ML VIAL ONE (22:03)
[2021-01-09] MEDS ORDERED: SODIUM CHLORIDE 1,000 ML IV SCH (23:45)
[2021-01-10 01:22] LABS: LACTIC ACID 5.1 mmol/L (0.4-2.0)
[2021-01-10 02:18] LABS: URINE APPEARANCE CLEAR; URINE BILIRUBIN NEGATIVE (NEGATIVE); URINE COLOR YELLOW; URINE GLUCOSE (UA) NEGATIVE (NEGATIVE); URINE KETONE 1+ (NEGATIVE); URINE LEUK ESTERASE NEGATIVE (NEGATIVE); URINE NITRITE NEGATIVE (NEGATIVE); URINE PROTEIN TRACE (NEGATIVE); URINE UROBILINOGEN 0.2 mg/dL (0.2-1.0)
[2021-01-10] MEDS ORDERED: HUM PROTHROMBIN CPLX(PCC)4FACT 1,000 UNIT/40 ML VIAL IV ONE (03:15)
[2021-01-10] MEDS ORDERED: VANCOMYCIN 1 GM in D5W (PRE-DOCKED) 1,000 MG/250 ML IVPB SCH ×2 (03:17→04:22)
[2021-01-10] MEDS ORDERED: SODIUM CHLORIDE 1,000 ML IV SCH (03:19)
[2021-01-10] MEDS ORDERED: HUM PROTHROMBIN CPLX(PCC)4FACT 1,000 UNIT/40 ML VIAL IVPB ONE (03:21)
[2021-01-10] MEDS ORDERED: PIPERACILLIN/TAZOB 3.375 GM 3.375 GM in DEXTROSE 5%-WATER - 50 ML IVPB SCH ×2 (03:30→10:00)
[2021-01-10] MEDS ORDERED: fentaNYL CITRATE 250 MCG/5 ML VIAL ONE (04:36)
[2021-01-10] MEDS ORDERED: ROCURONIUM BROMIDE 50 MG/5 ML SYRINGE ONE (04:37)
[2021-01-10] MEDS ORDERED: MIDAZOLAM HCL 2 MG/2 ML SINGLE DOSE VIAL ONE (04:57)
[2021-01-10 05:07] LABS: LACTIC ACID 3.7 mmol/L (0.4-2.0)
[2021-01-10] MEDS ORDERED: ALBUMIN HUMAN 25% 12.5 GM/50 ML VIAL IVPB SCH (05:15)
[2021-01-10] MEDS ORDERED: NEOSTIGMINE METHYLSULFATE 0.5 MG/1 ML - 10 ML MDV ONE (06:57)
[2021-01-10] MEDS ORDERED: INSULIN SLIDING SCALE (NOVOLOG) 1 VIAL SQ SCH (07:00)
[2021-01-10] MEDS ORDERED: ACETAMINOPHEN 1000 MG/100 ML VIAL IVPB PRN ×2 (07:36→08:03)
[2021-01-10] MEDS ORDERED: LACTATED RINGERS SOLUTION 1,000 ML IV SCH (07:45)
[2021-01-10] MEDS: LACTATED RINGERS SOLUTION 1,000 ML IV SCH ×2 (08:03→17:33)
[2021-01-10] MEDS ORDERED: VANCOMYCIN 1 GRAM (PRE-DOCKED) 1,000 MG/250 ML BAG IVPB ONE (09:57)
[2021-01-10] MEDS ORDERED: PIPERACILLIN/TAZOBACTAM 3.375 GM VIAL IVPB ONE ×2 (11:56→16:43)
[2021-01-10] MEDS ORDERED: DEXTROSE 5%-WATER - 50 ML IVPB ONE ×2 (11:57→16:43)
[2021-01-10] MEDS: ACETAMINOPHEN 1000 MG/100 ML VIAL IVPB SCH ×3 (12:00→22:39)
[2021-01-10] MEDS: PIPERACILLIN/TAZOB 3.375 GM 3.375 GM in DEXTROSE 5%-WATER - 50 ML IVPB SCH ×2 (12:16→17:33)
[2021-01-10] MEDS: INSULIN SLIDING SCALE (NOVOLOG) 1 VIAL SQ SCH ×3 (12:29→23:52)
[2021-01-10] MEDS ORDERED: PT OWN MED DRAWER 7, Y5N ONE ×3 (13:39→22:39)
[2021-01-10] MEDS: MUPIROCIN 2% TOPICAL OINTMENT FOR DECOLONIZATION NS SCH ×2 (13:50→22:37)
[2021-01-10] MEDS: HEPARIN NA (PORCINE) 5,000 UNITS/ML 1ML VIAL SQ SCH ×2 (15:09→22:40)
[2021-01-10] MEDS: LEVOTHYROXINE SODIUM 100 MCG VIAL IVPUSH SCH (15:09)
[2021-01-10 16:26] LABS: BASO % 0.1 % (0-2.0); HEMATOCRIT 28.9 % (35.4-49); HEMOGLOBIN 9.3 GM/dL (11.7-16.9); LYMPH % 2.4 % (8-40); MCHC 32.2 g/dl (32.0-35.9); MEAN PLT VOLUME 9.8 fl (7.5-11.1); MONO % 8.3 % (3.8-10.2); NEUT % 89.2 % (42.8-82.8); PLATELET COUNT 140 10^3/uL (134-434); RBC 3.21 M/mm3 (4.00-5.60); RDW 22.6 % (11.9-15.9)
[2021-01-10 16:37] LABS: WHITE BLOOD COUNT 51.7 K/mm3 (4.0-10.0)
[2021-01-10 16:41] LABS: CALCIUM 8.1 mg/dL (8.5-10.1)
[2021-01-10 16:42] LABS: BLOOD UREA NITROGEN 23.7 mg/dL (7-18); MAGNESIUM 1.5 mg/dL (1.8-2.4)
[2021-01-10 16:44] LABS: PHOSPHOROUS 3.6 mg/dL (2.5-4.9)
[2021-01-10 16:45] LABS: CREATININE 1.4 mg/dL (0.55-1.3)
[2021-01-10 16:46] LABS: BILIRUBIN,TOTAL 0.5 mg/dL (0.2-1); TOT PROT 5.5 g/dl (6.4-8.2)
[2021-01-10 17:26] LABS: ALBUMIN 2.8 g/dl (3.4-5.0); LACTIC ACID 5.2 mmol/L (0.4-2.0)
[2021-01-10 18:09] LABS: ANISOCYTOSIS 3+; MACROCYTOSIS 1+; PLATELET ESTIMATE DECREASED; TARGET CELLS 2+
[2021-01-10] MEDS ORDERED: LACTATED RINGERS SOLUTION 1,000 ML/1,000 ML INFUS.BAG IV STA (19:41)
[2021-01-10] MEDS: CHLORHEXIDINE GLUCONATE 4% CLEANSER FOR DECOLONIZATION TP SCH (22:38)
[2021-01-10] MEDS ORDERED: LACTATED RINGERS SOLUTION 1,000 ML/1,000 ML INFUS.BAG IV ONE (23:34)
[2021-01-11] MEDS ORDERED: PIPERACILLIN/TAZOBACTAM 3.375 GM VIAL IVPB ONE ×3 (01:22→17:00)
[2021-01-11] MEDS ORDERED: DEXTROSE 5%-WATER - 50 ML IVPB ONE ×3 (01:22→17:00)
[2021-01-11] MEDS: PIPERACILLIN/TAZOB 3.375 GM 3.375 GM in DEXTROSE 5%-WATER - 50 ML IVPB SCH ×3 (01:39→17:07)
[2021-01-11] MEDS ORDERED: PIPERACILLIN/TAZOB 3.375 GM 3.375 GM in DEXTROSE 5%-WATER - 50 ML IVPB SCH (03:30)
[2021-01-11] MEDS ORDERED: VANCOMYCIN 1 GM in D5W (PRE-DOCKED) 1,000 MG/250 ML IVPB SCH (04:30)
[2021-01-11] MEDS: ACETAMINOPHEN 1000 MG/100 ML VIAL IVPB SCH ×2 (04:50→09:21)
[2021-01-11] MEDS ORDERED: PT OWN MED DRAWER 7, Y5N ONE ×3 (05:09→15:18)
[2021-01-11] MEDS: HEPARIN NA (PORCINE) 5,000 UNITS/ML 1ML VIAL SQ SCH ×3 (05:13→21:32)
[2021-01-11] MEDS: LACTATED RINGERS SOLUTION 1,000 ML IV SCH ×4 (05:14→21:34)
[2021-01-11] MEDS: INSULIN SLIDING SCALE (NOVOLOG) 1 VIAL SQ SCH ×4 (06:39→23:23)
[2021-01-11] MEDS: LEVOTHYROXINE SODIUM 100 MCG VIAL IVPUSH SCH (06:40)
[2021-01-11 07:40] LABS: HEMATOCRIT 26.2 % (35.4-49); HEMOGLOBIN 8.7 GM/dL (11.7-16.9); MCH 29.5 pg (25.7-33.7); MCHC 33.1 g/dl (32.0-35.9); MEAN CELL VOLUME 89.1 fl (80-96); MEAN PLT VOLUME 10.3 fl (7.5-11.1); PLATELET COUNT 140 10^3/uL (134-434); RBC 2.94 M/mm3 (4.00-5.60); RDW 22.9 % (11.9-15.9)
[2021-01-11 07:50] LABS: CALCIUM 7.3 mg/dL (8.5-10.1)
[2021-01-11 07:52] LABS: ALBUMIN 2.5 g/dl (3.4-5.0); BLOOD UREA NITROGEN 24.8 mg/dL (7-18); MAGNESIUM 1.5 mg/dL (1.8-2.4)
[2021-01-11 07:53] LABS: BILIRUBIN,TOTAL 0.8 mg/dL (0.2-1); CREATININE 1.3 mg/dL (0.55-1.3); PHOSPHOROUS 3.6 mg/dL (2.5-4.9)
[2021-01-11 07:54] LABS: BILIRUBIN,DIRECT 0.4 mg/dL (0.0-0.2)
[2021-01-11 08:16] LABS: WHITE BLOOD COUNT 54.2 K/mm3 (4.0-10.0)
[2021-01-11 08:20] LABS: INR 1.49 (0.83-1.09); PROTHROMBIN TIME (PATIENT) 16.8 SEC (9.7-13.0)
[2021-01-11 08:22] LABS: ACTIVATED PTT 35.3 SECONDS (25.2-36.5)
[2021-01-11] MEDS: MUPIROCIN 2% TOPICAL OINTMENT FOR DECOLONIZATION NS SCH ×2 (09:24→21:32)
[2021-01-11 13:47] LABS: ANISOCYTOSIS 2+; MACROCYTOSIS 0; OVALOCYTE 1+; PLATELET ESTIMATE DECREASED; TARGET CELLS 2+
[2021-01-11 16:26] LABS: HEMATOCRIT 28.5 % (35.4-49); HEMOGLOBIN 9.4 GM/dL (11.7-16.9); MCH 29.1 pg (25.7-33.7); MCHC 32.8 g/dl (32.0-35.9); MEAN CELL VOLUME 88.6 fl (80-96); MEAN PLT VOLUME 9.8 fl (7.5-11.1); PLATELET COUNT 177 10^3/uL (134-434); RBC 3.22 M/mm3 (4.00-5.60); RDW 22.5 % (11.9-15.9)
[2021-01-11 16:35] LABS: WHITE BLOOD COUNT 71.2 K/mm3 (4.0-10.0)
[2021-01-11 16:49] LABS: LACTIC ACID 2.1 mmol/L (0.4-2.0)
[2021-01-11 17:26] LABS: ANISOCYTOSIS 3+; MACROCYTOSIS 0; OVALOCYTE 2+; PLATELET ESTIMATE NORMAL; TARGET CELLS 1+
[2021-01-11] MEDS: CHLORHEXIDINE GLUCONATE 4% CLEANSER FOR DECOLONIZATION TP SCH (21:32)
[2021-01-11] MEDS ORDERED: LORazepam 2 MG/ML SDV VIAL IVPUSH ONE (23:10)
[2021-01-12] MEDS ORDERED: PIPERACILLIN/TAZOBACTAM 3.375 GM VIAL IVPB ONE ×3 (02:08→17:45)
[2021-01-12] MEDS ORDERED: DEXTROSE 5%-WATER - 50 ML IVPB ONE ×3 (02:09→17:45)
[2021-01-12] MEDS: PIPERACILLIN/TAZOB 3.375 GM 3.375 GM in DEXTROSE 5%-WATER - 50 ML IVPB SCH ×3 (02:14→17:51)
[2021-01-12] MEDS ORDERED: PT OWN MED DRAWER 7, Y5N ONE ×2 (05:03→10:03)
[2021-01-12] MEDS: HEPARIN NA (PORCINE) 5,000 UNITS/ML 1ML VIAL SQ SCH ×3 (05:04→21:47)
[2021-01-12] MEDS: LEVOTHYROXINE SODIUM 100 MCG VIAL IVPUSH SCH (06:00)
[2021-01-12] MEDS: INSULIN SLIDING SCALE (NOVOLOG) 1 VIAL SQ SCH ×4 (06:00→21:44)
[2021-01-12] MEDS: LACTATED RINGERS SOLUTION 1,000 ML IV SCH ×2 (06:01→09:00)
[2021-01-12 07:09] LABS: BASO % 0.3 % (0-2.0); EOS % 0.3 % (0-4.5); HEMATOCRIT 25.2 % (35.4-49); HEMOGLOBIN 8.4 GM/dL (11.7-16.9); LYMPH % 3.6 % (8-40); MCH 29.7 pg (25.7-33.7); MCHC 33.3 g/dl (32.0-35.9); MEAN CELL VOLUME 89.3 fl (80-96); MONO % 5.8 % (3.8-10.2); PLATELET COUNT 184 10^3/uL (134-434); RBC 2.83 M/mm3 (4.00-5.60); RDW 22.6 % (11.9-15.9)
[2021-01-12 07:29] LABS: ALBUMIN 2.3 g/dl (3.4-5.0); BLOOD UREA NITROGEN 20.1 mg/dL (7-18); CALCIUM 7.3 mg/dL (8.5-10.1); MAGNESIUM 1.4 mg/dL (1.8-2.4)
[2021-01-12 07:32] LABS: BILIRUBIN,TOTAL 0.8 mg/dL (0.2-1); CREATININE 1.1 mg/dL (0.55-1.3); PHOSPHOROUS 3.2 mg/dL (2.5-4.9); TOT PROT 4.8 g/dl (6.4-8.2)
[2021-01-12 07:36] LABS: WHITE BLOOD COUNT 61.4 K/mm3 (4.0-10.0)
[2021-01-12] MEDS: MUPIROCIN 2% TOPICAL OINTMENT FOR DECOLONIZATION NS SCH ×2 (09:21→21:30)
[2021-01-12 10:47] LABS: ANISOCYTOSIS 1+; MACROCYTOSIS 0; OVALOCYTE 1+; PLATELET ESTIMATE NORMAL; TARGET CELLS 2+; TOXIC GRANULATION 2+
[2021-01-12 16:06] VITALS: BMI 19.3
[2021-01-12] MEDS ORDERED: LACTATED RINGERS SOLUTION 1,000 ML IV SCH (18:18)
[2021-01-12] MEDS ORDERED: ACETAMINOPHEN 1000 MG/100 ML VIAL IVPB PRN (18:18)
[2021-01-12] MEDS ORDERED: MELATONIN 5 MG TABLETS PO ONE (21:49)
[2021-01-12] MEDS ORDERED: CHLORHEXIDINE GLUCONATE 4% CLEANSER FOR DECOLONIZATION TP SCH (22:00)
[2021-01-13] MEDS ORDERED: PIPERACILLIN/TAZOBACTAM 3.375 GM VIAL IVPB ONE ×3 (01:32→15:49)
[2021-01-13] MEDS ORDERED: DEXTROSE 5%-WATER - 50 ML IVPB ONE ×3 (01:33→15:49)
[2021-01-13] MEDS: PIPERACILLIN/TAZOB 3.375 GM 3.375 GM in DEXTROSE 5%-WATER - 50 ML IVPB SCH ×3 (03:13→17:14)
[2021-01-13] MEDS ORDERED: PT OWN MED DRAWER 7, Y5N ONE (06:35)
[2021-01-13] MEDS: HEPARIN NA (PORCINE) 5,000 UNITS/ML 1ML VIAL SQ SCH (06:45)
[2021-01-13] MEDS: INSULIN SLIDING SCALE (NOVOLOG) 1 VIAL SQ SCH ×2 (06:48→11:54)
[2021-01-13] MEDS ORDERED: LEVOTHYROXINE SODIUM 100 MCG VIAL IVPUSH SCH (07:00)
[2021-01-13 07:43] LABS: HEMATOCRIT 24.2 % (35.4-49); HEMOGLOBIN 8.1 GM/dL (11.7-16.9); MCH 30.1 pg (25.7-33.7); MCHC 33.6 g/dl (32.0-35.9); MEAN CELL VOLUME 89.7 fl (80-96); MEAN PLT VOLUME 9.8 fl (7.5-11.1); PLATELET COUNT 210 10^3/uL (134-434); RBC 2.69 M/mm3 (4.00-5.60); RDW 21.9 % (11.9-15.9)
[2021-01-13 07:56] LABS: ALBUMIN 2.1 g/dl (3.4-5.0); BLOOD UREA NITROGEN 17.9 mg/dL (7-18); CALCIUM 8.2 mg/dL (8.5-10.1); MAGNESIUM 1.5 mg/dL (1.8-2.4)
[2021-01-13 07:59] LABS: CREATININE 1.1 mg/dL (0.55-1.3)
[2021-01-13 08:00] LABS: PHOSPHOROUS 2.2 mg/dL (2.5-4.9); WHITE BLOOD COUNT 42.4 K/mm3 (4.0-10.0)
[2021-01-13 08:01] LABS: TOT PROT 4.5 g/dl (6.4-8.2)
[2021-01-13] MEDS ORDERED: MAGNESIUM SULF 50% (8.12 MEQ/2 ML-1 GM VIAL) IVPB ONE (08:30)
[2021-01-13] MEDS ORDERED: POTASSIUM PHOSPHATE 30 MM in DEXTROSE 5%-WATER - 500 ML IVPB ONE (09:33)
[2021-01-13 09:46] LABS: ANISOCYTOSIS 1+; MACROCYTOSIS 1+; PLATELET ESTIMATE NORMAL
[2021-01-13] MEDS: APIXABAN 2.5 MG TABLET PO SCH ×2 (10:07→21:16)
[2021-01-13] MEDS: LEVOTHYROXINE NA 75 MCG TABLET (FP) PO SCH (10:08)
[2021-01-13] MEDS: MUPIROCIN 2% TOPICAL OINTMENT FOR DECOLONIZATION NS SCH ×2 (10:09→21:15)
[2021-01-13] MEDS: INSULIN (NOVOLOG) ASPART 100 UNITS/ML 10ML VIAL SQ SCH ×2 (11:56→16:42)
[2021-01-13] MEDS ORDERED: NAPH,MB-DB/K PH,MBDB POWDER PACKET PO ONE (14:45)
[2021-01-13] MEDS: ATORVASTATIN CA 10 MG TABLET (FP) PO SCH (21:15)
[2021-01-13] MEDS ORDERED: INSULIN (LEVEMIR) 100 UNITS/ML UNITS SQ SCH (22:00)
[2021-01-13] MEDS ORDERED: MELATONIN 5 MG TABLETS PO ONE (23:20)
[2021-01-13] MEDS ORDERED: Insulin (LOG) Aspart 100 UNITS/ML VIAL SQ ONE (23:23)
[2021-01-14] MEDS ORDERED: PIPERACILLIN/TAZOBACTAM 3.375 GM VIAL IVPB ONE ×3 (01:20→15:42)
[2021-01-14] MEDS ORDERED: DEXTROSE 5%-WATER - 50 ML IVPB ONE ×3 (01:20→15:42)
[2021-01-14] MEDS: PIPERACILLIN/TAZOB 3.375 GM 3.375 GM in DEXTROSE 5%-WATER - 50 ML IVPB SCH ×3 (02:50→17:04)
[2021-01-14] MEDS: LEVOTHYROXINE NA 75 MCG TABLET (FP) PO SCH (06:36)
[2021-01-14] MEDS: INSULIN (NOVOLOG) ASPART 100 UNITS/ML 10ML VIAL SQ SCH ×3 (06:39→17:04)
[2021-01-14 08:22] LABS: HEMATOCRIT 24.9 % (35.4-49); HEMOGLOBIN 8.3 GM/dL (11.7-16.9); MCH 29.5 pg (25.7-33.7); MCHC 33.2 g/dl (32.0-35.9); MEAN CELL VOLUME 88.8 fl (80-96); MEAN PLT VOLUME 9.8 fl (7.5-11.1); PLATELET COUNT 265 10^3/uL (134-434); RDW 21.5 % (11.9-15.9)
[2021-01-14 08:53] LABS: CALCIUM 7.6 mg/dL (8.5-10.1)
[2021-01-14 08:54] LABS: BLOOD UREA NITROGEN 15.7 mg/dL (7-18)
[2021-01-14 08:58] LABS: BILIRUBIN,TOTAL 1.1 mg/dL (0.2-1); CREATININE 1.1 mg/dL (0.55-1.3); TOT PROT 4.4 g/dl (6.4-8.2)
[2021-01-14] MEDS: APIXABAN 2.5 MG TABLET PO SCH ×2 (09:21→22:15)
[2021-01-14] MEDS ORDERED: LACTATED RINGERS SOLUTION 1,000 ML/1,000 ML INFUS.BAG IV SCH (10:30)
[2021-01-14 10:38] LABS: ANISOCYTOSIS 0; MACROCYTOSIS 0; OVALOCYTE 0; PLATELET ESTIMATE NORMAL; TARGET CELLS 1+
[2021-01-14 10:39] LABS: TOXIC GRANULATION 1+
[2021-01-14] MEDS: ATORVASTATIN CA 10 MG TABLET (FP) PO SCH (22:16)
[2021-01-14] MEDS: INSULIN SLIDING SCALE (NOVOLOG) 1 VIAL SQ SCH (22:24)
[2021-01-14] MEDS ORDERED: Insulin (LOG) Aspart 100 UNITS/ML VIAL SQ ONE (23:23)
[2021-01-15] MEDS: MELATONIN 5 MG TABLETS PO ONE ×2 (00:42→01:31)
[2021-01-15] MEDS ORDERED: PIPERACILLIN/TAZOBACTAM 3.375 GM VIAL IVPB ONE ×2 (01:19→08:44)
[2021-01-15] MEDS ORDERED: DEXTROSE 5%-WATER - 50 ML IVPB ONE ×2 (01:20→08:44)
[2021-01-15] MEDS: PIPERACILLIN/TAZOB 3.375 GM 3.375 GM in DEXTROSE 5%-WATER - 50 ML IVPB SCH ×3 (02:27→17:14)
[2021-01-15] MEDS: INSULIN SLIDING SCALE (NOVOLOG) 1 VIAL SQ SCH ×4 (06:33→21:20)
[2021-01-15] MEDS: INSULIN (LEVEMIR) 100 UNITS/ML UNITS SQ SCH (06:34)
[2021-01-15] MEDS: LEVOTHYROXINE NA 75 MCG TABLET (FP) PO SCH (06:35)
[2021-01-15] MEDS ORDERED: INSULIN (NOVOLOG) ASPART 100 UNITS/ML 10ML VIAL ONE (06:39)
[2021-01-15 08:00] LABS: HEMATOCRIT 26.6 % (35.4-49); HEMOGLOBIN 8.9 GM/dL (11.7-16.9); MCH 29.9 pg (25.7-33.7); MCHC 33.5 g/dl (32.0-35.9); MEAN CELL VOLUME 89.3 fl (80-96); MEAN PLT VOLUME 9.5 fl (7.5-11.1); PLATELET COUNT 288 10^3/uL (134-434); RBC 2.98 M/mm3 (4.00-5.60); RDW 21.7 % (11.9-15.9)
[2021-01-15 08:17] LABS: WHITE BLOOD COUNT 42.4 K/mm3 (4.0-10.0)
[2021-01-15 08:29] LABS: ALBUMIN 2.2 g/dl (3.4-5.0); BLOOD UREA NITROGEN 12.9 mg/dL (7-18); CALCIUM 7.9 mg/dL (8.5-10.1)
[2021-01-15 08:32] LABS: PHOSPHOROUS 2.5 mg/dL (2.5-4.9)
[2021-01-15 08:33] LABS: BILIRUBIN,TOTAL 0.8 mg/dL (0.2-1); TOT PROT 4.7 g/dl (6.4-8.2)
[2021-01-15] MEDS: APIXABAN 2.5 MG TABLET PO SCH ×2 (09:16→21:20)
[2021-01-15] MEDS ORDERED: MAG HYDROX/AL HYDROX/SIMETH 30 ML UNIT-DOSE CUP PO PRN (17:16)
[2021-01-15] MEDS: ATORVASTATIN CA 10 MG TABLET (FP) PO SCH (21:20)
[2021-01-16] MEDS ORDERED: PIPERACILLIN/TAZOBACTAM 3.375 GM VIAL IVPB ONE ×2 (01:17→09:58)
[2021-01-16] MEDS ORDERED: DEXTROSE 5%-WATER - 50 ML IVPB ONE ×2 (01:17→09:58)
[2021-01-16] MEDS: PIPERACILLIN/TAZOB 3.375 GM 3.375 GM in DEXTROSE 5%-WATER - 50 ML IVPB SCH ×2 (01:51→10:01)
[2021-01-16] MEDS: LEVOTHYROXINE NA 75 MCG TABLET (FP) PO SCH (06:38)
[2021-01-16] MEDS: INSULIN (LEVEMIR) 100 UNITS/ML UNITS SQ SCH (06:38)
[2021-01-16] MEDS: INSULIN SLIDING SCALE (NOVOLOG) 1 VIAL SQ SCH ×2 (06:39→12:16)
[2021-01-16] MEDS ORDERED: INSULIN (NOVOLOG) ASPART 100 UNITS/ML 10ML VIAL ONE (07:40)
[2021-01-16] MEDS ORDERED: INSULIN (LEVEMIR) 100 UNITS/ML UNITS SQ ONE (07:40)
[2021-01-16 07:56] LABS: HEMATOCRIT 27.2 % (35.4-49); MCH 29.9 pg (25.7-33.7); MCHC 33.2 g/dl (32.0-35.9); MEAN CELL VOLUME 90.2 fl (80-96); MEAN PLT VOLUME 9.8 fl (7.5-11.1); PLATELET COUNT 364 10^3/uL (134-434); RBC 3.01 M/mm3 (4.00-5.60); RDW 21.9 % (11.9-15.9)
[2021-01-16 07:58] LABS: WHITE BLOOD COUNT 36.5 K/mm3 (4.0-10.0)
[2021-01-16 08:40] LABS: ALBUMIN 2.1 g/dl (3.4-5.0); CALCIUM 8.2 mg/dL (8.5-10.1)
[2021-01-16 08:41] LABS: MAGNESIUM 1.8 mg/dL (1.8-2.4)
[2021-01-16 08:43] LABS: PHOSPHOROUS 2.4 mg/dL (2.5-4.9)
[2021-01-16 08:45] LABS: BILIRUBIN,TOTAL 0.9 mg/dL (0.2-1); TOT PROT 4.6 g/dl (6.4-8.2)
[2021-01-16] MEDS ORDERED: PT OWN MED DRAWER 7, Y5N ONE ×2 (09:58→11:00)
[2021-01-16] MEDS: APIXABAN 2.5 MG TABLET PO SCH (10:01)
[2021-01-16] MEDS ORDERED: PORTA CATH FLUSH 10 ML IVPUSH PRN (12:35)
[2021-01-16 15:10] VITALS: BP 106/56; PULSE 70; TEMP 97.7
== END 2021-01-16 15:14 | disposition home health service (06) | DRG 329 ==
LOC: JER 15:05 → JERBED 19:26 → JICU 01-10 08:50 → J7W 01-12 18:55
PROVIDERS: ADMIT Internal Medicine; ATTEND Internal Medicine
PROC: 0D9670Z Drainage of Stomach with Drainage Device, Via Natural or Artificial Opening (ICD-10-PCS; principal; 2021-01-09)
PROC: 0DT80ZZ Resection of Small Intestine, Open Approach (ICD-10-PCS; 2021-01-10)
PROC: 0DNW0ZZ Release Peritoneum, Open Approach (ICD-10-PCS; 2021-01-10)
DX: C78.4 Secondary malignant neoplasm of small intestine (principal); K55.029 Acute infarction of small intestine, extent unspecified; E43 Unspecified severe protein-calorie malnutrition; C25.9 Malignant neoplasm of pancreas, unspecified; E87.2 Acidosis; Z68.1 Body mass index [BMI] 19.9 or less, adult; I24.8 Other forms of acute ischemic heart disease; N17.9 Acute kidney failure, unspecified; K55.9 Vascular disorder of intestine, unspecified; K56.609 Unspecified intestinal obstruction, unspecified as to partial versus complete obstruction; D72.829 Elevated white blood cell count, unspecified; I10 Essential (primary) hypertension; E78.5 Hyperlipidemia, unspecified; E11.9 Type 2 diabetes mellitus without complications; D64.9 Anemia, unspecified; E03.9 Hypothyroidism, unspecified; D72.823 Leukemoid reaction; Z93.3 Colostomy status; Z87.11 Personal history of peptic ulcer disease; R10.84 Generalized abdominal pain; K66.0 Peritoneal adhesions (postprocedural) (postinfection)
CPT/HCPCS: 36415; 36430; 71045-TC-FY; 74177-TC; 80048; 80053; 80076; 81003; 82550; 82962; 83605; 83735; 84100; 84484; 85025; 85027; 85610; 85730; 86850; 86900; 86901; 86922; 87040; 87086; 88309-TC; 88341-TC; 93005; 93010; 94760; 97116-GP; 97161-GP; 99285-25; C9803; J0131; J1644; J7168; P9058; Q9967; U0003; U0005